=== PATIENT | female | born 1945 | race Two or more races ===

== ENCOUNTER 2023-03-08 09:19 | Outpatient (AMB) | payer OTHER, SELFPAY ==
--- NOTE | 2023-03-08 09:42 | HO.NEPHOV_ITS ---
HPI HPI Comments History of Present Illness Details I had the privilege of seeing Deonna accompanied by her daughter in follow-up for chronic kidney disease and hypertension. She had CVA in the past without residual left side weakness. Her blood pressure control has been fair at home. She is compliant with her medications. She is not very rigid with low-sodium diet. She denies any headache, visual disturbances, new weakness, chest pain, shortness of breath, proximal nocturnal dyspnea, orthopnea, pedal edema or urinary symptoms. She denies taking nonsteroidal anti-inflammatory medications. Her blood sugar control has been fair. Her blood pressure control has been at goal. She still is on Plavix. She maintains good hydration. She has not had any recent hospitalizations. There were no new complaints at the time of this office visit. [facility] Medical History (Updated 03/09/23 @ 10:00 by Carlitos Verdugo MD) Hyperlipidemia Renal cell cancer Stroke Chronic kidney disease Essential (primary) hypertension Surgical History (Updated 03/08/23 @ 09:52 by Caroline Rosado MA) History of cholecystectomy History of nephrectomy History of kidney surgery History of knee surgery History of cataract surgery Family History Daughter Hypertension Son Hypertension Social History (Updated 03/08/23 @ 09:46 by Caroline Rosado MA) Alcohol intake: never Patient Tobacco Use Status: Never used Tobacco Vital Signs 03/08/23 09:43 Height 5 ft 1 in Weight 125 lb BMI 23.6 BP 140/70 H Blood Pressure Location Lt brachial Position Sitting Pulse 90 Pulse Source Pulse Oximeter Physical Exam Vital Signs: Last Vital Signs Pulse 90 03/08/23 09:43 BP 140/70 H 03/08/23 09:43 BMI result Body Mass Index 23.6 Const General: comfortable and no acute distress Orientation/consciousness: patient oriented x3 HEENT Head: Yes normocephalic Mouth: Normal oral and palatal mucosa present Eyes EOM: EOMs intact bilaterally Neck Neck: Yes supple Resp Auscultation: clear to auscultation bilaterally Cardio Jugular venous distension: no JVD Rate: regular rate GI Palpation (GI): Soft to palpation Auscultation: normal bowel sounds General: Yes no CVA tenderness Back/Spine/Pelvis Back: no CVA tenderness Skin General skin exam: no rashes or lesions noted Neuro General: patient oriented x3 and moves all extremities Extrem General: Yes no pedal edema Assessment & Plan Assessment & Plan (1) Hypertension: Code(s): I10 - Essential (primary) hypertension Qualifiers: Hypertension type: primary hypertension Qualified Code(s): I10 - Essential (primary) hypertension (2) CKD (chronic kidney disease) stage 3, GFR 30-59 ml/min: Code(s): N18.30 - Chronic kidney disease, stage 3 unspecified (3) CVA, old, hemiparesis: Code(s): I69.359 - Hemiplegia and hemiparesis following cerebral infarction affecting unspecified side Plan Deonna has longstanding chronic kidney disease and hypertension. She has history of CVA with residual hemiparesis. Her blood pressure control is optimal. Her blood sugars are better. Her serum potassium has been normal. She does not have any orthostatic symptoms. I have ordered blood work and urine studies. I plan to start her on Jardiance or Farxiga at the next visit. She should maintain good hydration, increase activity, keep a low-sodium diet and avoid nonsteroidal anti-inflammatory medications. I did not make any changes today. All questions were answered. Time spent retrieving data, documentation and patient encounter 23 minutes. Follow-up given. Orders: Orders Electrolytes 03/08/23 I10 - Essential (primary) hypertension, N18.30 - Chronic kidney disease, stage 3 unspecified Calcium 03/08/23 I10 - Essential (primary) hypertension, N18.30 - Chronic kidney disease, stage 3 unspecified Parathyroid Hormone Intact 03/08/23 I10 - Essential (primary) hypertension, N18.30 - Chronic kidney disease, stage 3 unspecified Phosphorus 03/08/23 I10 - Essential (primary) hypertension, N18.30 - Chronic kidney disease, stage 3 unspecified Protein Creatinine Ratio, Ur 03/08/23 I10 - Essential (primary) hypertension, N18.30 - Chronic kidney disease, stage 3 unspecified Blood Urea Nitrogen 03/08/23 I10 - Essential (primary) hypertension, N18.30 - Chronic kidney disease, stage 3 unspecified Creatinine 03/08/23 I10 - Essential (primary) hypertension, N18.30 - Chronic kidney disease, stage 3 unspecified Complete Blood Count Auto Diff 03/08/23 I10 - Essential (primary) hypertension, N18.30 - Chronic kidney disease, stage 3 unspecified Coding Level of Care Code Est Pt Level 4 (68781) Diagnoses Primary hypertension I10 Hypertension type: primary hypertension CKD (chronic kidney disease) stage 3, GFR 30-59 ml/min N18.30 CVA, old, hemiparesis I69.359 Results Reviewed Nephrology Results: No Data to Display
[2023-03-08 09:43] VITALS: BP 140/70; PULSE 90; BMI 23.6
== END 2023-03-08 10:16 | disposition home or self-care (01) ==
PROVIDERS: Visit Provider Internal Medicine Nephrology
DX: I10 Essential (primary) hypertension (principal); N18.30 Chronic kidney disease, stage 3 unspecified; I69.359 Hemiplegia and hemiparesis following cerebral infarction affecting unspecified side
CPT/HCPCS: 99214

== ENCOUNTER → 2023-03-08 09:19 | Outpatient (BNVA) | payer OTHER, SELFPAY | PROVIDERS: Visit Provider Internal Medicine Nephrology | DX: I12.9 Hypertensive chronic kidney disease with stage 1 through stage 4 chronic kidney disease, or unspecified chronic kidney disease (principal); N18.30 Chronic kidney disease, stage 3 unspecified; I69.359 Hemiplegia and hemiparesis following cerebral infarction affecting unspecified side | CPT/HCPCS: 99212 ==

== ENCOUNTER 2023-05-01 10:09 | Outpatient (REF) | payer OTHER, SELFPAY ==
[2023-05-01 12:26] LABS: MANUAL DIFF FLAG NO
[2023-05-01 12:28] LABS: Basophils Percent Auto 0.5 % (0-2); Eosinophils Absolute Auto 0.2 X10*3/uL (0.0-0.4); Eosinophils Percent Auto 2.3 % (0-4); Hematocrit 40.3 % (37.0-47.0); Hemoglobin 12.8 g/dl (12.0-16.0); Imm Gran Abs Auto 0.03 X10*3/uL (0.00-0.03); Imm Gran Pct Auto 0.4 % (0.0-0.4); Lymphocytes Absolute Auto 1.1 X10*3/uL (1.2-4.9); Lymphocytes Percent Auto 13.9 % (20-40); Mean Corpuscular HGB Conc 31.8 g/dl (31.0-35.0); Mean Corpuscular Hemoglobin 26.4 pg (27.0-33.0); Mean Corpuscular Volume 83.3 fL (80.0-98.0); Mean Platelet Volume 11.2 fL (9.4-12.3); Monocytes Absolute Auto 0.3 X10*3/uL (0.1-1.2); Neutrophils Absolute Auto 6.5 x10*3/uL (2.0-8.3); Neutrophils Percent Auto 78.9 % (45-73); Platelet Count 351 X10*3/uL (160-400); Red Blood Count 4.84 X10*6/uL (4.20-5.50); Red Cell Distribution Width 13.3 % (11.0-16.0); White Blood Count 8.2 X10*3/uL (4.8-10.8)
[2023-05-01 12:42] LABS: Anion Gap 14 (12-20); Blood Urea Nitrogen 37 mg/dL (9-16); Calcium 9.8 mg/dL (8.4-10.2); Carbon Dioxide 28 mmol/L (22-29); Chloride 102 mmol/L (96-108); Estimated Glomerular Filt Rate 26; Phosphorus 3.9 mg/dL (2.7-4.5); Potassium 4.2 mmol/L (3.3-5.1); Sodium 140 mmol/L (135-145)
[2023-05-01 13:05] LABS: Parathyroid Hormone Intact 135.5 pg/mL (8.7-77.1)
== END 2023-05-01 10:10 | disposition home or self-care (01) ==
LOC: HO.HKASLDS 10:09
PROVIDERS: Visit Provider Internal Medicine Nephrology
DX: I12.9 Hypertensive chronic kidney disease with stage 1 through stage 4 chronic kidney disease, or unspecified chronic kidney disease (principal); N18.30 Chronic kidney disease, stage 3 unspecified
CPT/HCPCS: 36415; 80051; 82310; 82565; 83970; 84100; 84520; 85025

== ENCOUNTER 2023-05-10 09:59 | Outpatient (AMB) | payer OTHER, SELFPAY ==
--- NOTE | 2023-05-10 10:05 | HO.NEPHOV ---
HPI HPI Comments History of Present Illness Details I had the privilege of seeing Deonna accompanied by her daughter in follow-up for chronic kidney disease and hypertension. She had CVA in the past without residual left side weakness. Her blood pressure control has been fair at home. She is compliant with her medications. She is not very rigid with low-sodium diet. She denies any headache, visual disturbances, new weakness, chest pain, shortness of breath, proximal nocturnal dyspnea, orthopnea, pedal edema or urinary symptoms. She denies taking nonsteroidal anti-inflammatory medications. Her blood sugar control has been fair. Her blood pressure control has been at goal. She still is on Plavix. She maintains good hydration. She has not had any recent hospitalizations. There were no new complaints at the time of this office visit [facility] Medical History (Updated 05/10/23 @ 10:21 by Carlitos Verdugo MD) Hyperlipidemia Renal cell cancer Stroke Chronic kidney disease Essential (primary) hypertension Surgical History History of cholecystectomy History of nephrectomy History of kidney surgery History of knee surgery History of cataract surgery Family History Daughter Hypertension Son Hypertension Social History Alcohol intake: never Patient Tobacco Use Status: Never used Tobacco Vital Signs 05/10/23 10:08 Height 5 ft 1 in Weight 122 lb 8 oz BMI 23.1 BP 130/80 Blood Pressure Location Lt brachial Position Sitting Pulse 65 Pulse Source Pulse Oximeter Pulse Oximetry (%) 99 Oxygen Delivery Method Room Air Physical Exam Vital Signs: Last Vital Signs Pulse 65 05/10/23 10:08 BP 130/80 05/10/23 10:08 Pulse Ox 99 05/10/23 10:08 Oxygen Delivery Method Room Air 05/10/23 10:08 BMI result Body Mass Index 23.1 Const General: comfortable and no acute distress Orientation/consciousness: patient oriented x3 HEENT Head: Yes normocephalic Mouth: Normal oral and palatal mucosa present Eyes EOM: EOMs intact bilaterally Neck Neck: Yes supple Resp Auscultation: clear to auscultation bilaterally Cardio Jugular venous distension: no JVD Rate: regular rate GI Palpation (GI): Soft to palpation Auscultation: normal bowel sounds General: Yes no CVA tenderness Back/Spine/Pelvis Back: no CVA tenderness Skin General skin exam: no rashes or lesions noted Neuro General: patient oriented x3 and moves all extremities Extrem General: Yes no pedal edema Assessment & Plan Assessment & Plan (1) CKD (chronic kidney disease) stage 3, GFR 30-59 ml/min: Code(s): N18.30 - Chronic kidney disease, stage 3 unspecified Qualifiers: Chronic kidney disease stage 3 subtype: stage 3b (GFR 30-44) Qualified Code(s): N18.32 - Chronic kidney disease, stage 3b (2) Hypertension: Code(s): I10 - Essential (primary) hypertension Qualifiers: Hypertension type: primary hypertension Qualified Code(s): I10 - Essential (primary) hypertension (3) CVA, old, hemiparesis: Code(s): I69.359 - Hemiplegia and hemiparesis following cerebral infarction affecting unspecified side Plan Deonna has longstanding chronic kidney disease and hypertension. She has history of CVA with residual hemiparesis. Her blood pressure control is optimal. Her blood sugars are better. Her serum potassium has been normal. She does not have any orthostatic symptoms. I have ordered blood work and urine studies. I plan to start her on Jardiance or Farxiga at the next visit. She should maintain good hydration, increase activity, keep a low-sodium diet and avoid nonsteroidal anti-inflammatory medications. 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 I did not make any changes today. All questions were answered. Orders: Orders Vitamin D 25-OH Total Today I10 - Essential (primary) hypertension, I69.359 - Hemiplegia and hemiparesis following cerebral infarction affecting unspecified side, N18.30 - Chronic kidney disease, stage 3 unspecified Creatinine Today I10 - Essential (primary) hypertension, I69.359 - Hemiplegia and hemiparesis following cerebral infarction affecting unspecified side, N18.30 - Chronic kidney disease, stage 3 unspecified Blood Urea Nitrogen Today I10 - Essential (primary) hypertension, I69.359 - Hemiplegia and hemiparesis following cerebral infarction affecting unspecified side, N18.30 - Chronic kidney disease, stage 3 unspecified Electrolytes Today I10 - Essential (primary) hypertension, I69.359 - Hemiplegia and hemiparesis following cerebral infarction affecting unspecified side, N18.30 - Chronic kidney disease, stage 3 unspecified Coding Level of Care Code Est Pt Level 4 (75868) Diagnoses Stage 3b chronic kidney disease N18.32 Chronic kidney disease stage 3 subtype: stage 3b (GFR 30-44) Primary hypertension I10 Hypertension type: primary hypertension CVA, old, hemiparesis I69.359 Results Reviewed Nephrology Results: Hgb 12.8 g/dl (12.0-16.0) 05/01/23 WBC 8.2 X10*3/uL (4.8-10.8) 05/01/23 Plt Count 351 X10*3/uL (160-400) 05/01/23 Sodium 140 mmol/L (135-145) 05/01/23 Potassium 4.2 mmol/L (3.3-5.1) 05/01/23 Chloride 102 mmol/L (96-108) 05/01/23 Carbon Dioxide 28 mmol/L (22-29) 05/01/23 BUN 37 mg/dL (9-16) H 05/01/23 Creatinine 1.87 mg/dL (0.5-1.4) H 05/01/23 Calcium 9.8 mg/dL (8.4-10.2) 05/01/23 Phosphorus 3.9 mg/dL (2.7-4.5) 05/01/23 PTH Intact 135.5 pg/mL (8.7-77.1) H 05/01/23
[2023-05-10 10:08] VITALS: BP 130/80; PULSE 65; O2SAT 99; BMI 23.1
== END 2023-05-10 10:30 | disposition home or self-care (01) ==
PROVIDERS: Visit Provider Internal Medicine Nephrology
DX: N18.32 Chronic kidney disease, stage 3b (principal); I10 Essential (primary) hypertension; I69.359 Hemiplegia and hemiparesis following cerebral infarction affecting unspecified side
CPT/HCPCS: 99214

== ENCOUNTER → 2023-05-10 09:59 | Outpatient (BNVA) | payer OTHER, SELFPAY | PROVIDERS: Visit Provider Internal Medicine Nephrology | DX: I12.9 Hypertensive chronic kidney disease with stage 1 through stage 4 chronic kidney disease, or unspecified chronic kidney disease (principal); N18.32 Chronic kidney disease, stage 3b; I69.359 Hemiplegia and hemiparesis following cerebral infarction affecting unspecified side | CPT/HCPCS: 99212 ==

== ENCOUNTER 2023-08-07 10:41 | Outpatient (AMB) | payer OTHER, SELFPAY ==
--- NOTE | 2023-08-07 10:47 | HO.NEPHOV ---
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 She recently had perforated viscus with pneumo peritoneum. She had surgery. During her hospitalization she had ALFONZO with labile BP . She is constipated now. She had CVA in the past without residual left side weakness. She denies any headache, visual disturbances, new weakness, chest pain, shortness of breath, proximal nocturnal dyspnea, orthopnea, pedal edema or urinary symptoms. She denies taking nonsteroidal anti-inflammatory medications. Her blood sugar control has been good. Her blood pressure control has been at goal. She still is on Plavix. She maintains good hydration. [facility] Medical History (Updated 08/07/23 @ 11:06 by Carlitos Verdugo MD) Hyperlipidemia Renal cell cancer Stroke Chronic kidney disease Essential (primary) hypertension Surgical History History of cholecystectomy History of nephrectomy History of kidney surgery History of knee surgery History of cataract surgery Family History Daughter Hypertension Son Hypertension Social History Alcohol intake: never Patient Tobacco Use Status: Never used Tobacco Physical Exam Vital Signs: Last Vital Signs Pulse 80 08/07/23 10:50 BP 120/50 L 08/07/23 10:50 Pulse Ox 98 08/07/23 10:50 Oxygen Delivery Method Room Air 08/07/23 10:50 Const General: comfortable and no acute distress Orientation/consciousness: patient oriented x3 HEENT Head: Yes normocephalic Mouth: Normal oral and palatal mucosa present Eyes EOM: EOMs intact bilaterally Neck Neck: Yes supple Resp Auscultation: clear to auscultation bilaterally Cardio Jugular venous distension: no JVD Rate: regular rate GI Palpation (GI): Soft to palpation Auscultation: normal bowel sounds General: Yes no CVA tenderness Back/Spine/Pelvis Back: no CVA tenderness Skin General skin exam: no rashes or lesions noted Neuro General: patient oriented x3 and moves all extremities Extrem General: Yes no pedal edema Results Reviewed Nephrology Results: Hgb 12.8 g/dl (12.0-16.0) 05/01/23 WBC 8.2 X10*3/uL (4.8-10.8) 05/01/23 Plt Count 351 X10*3/uL (160-400) 05/01/23 Sodium 140 mmol/L (135-145) 05/01/23 Potassium 4.2 mmol/L (3.3-5.1) 05/01/23 Chloride 102 mmol/L (96-108) 05/01/23 Carbon Dioxide 28 mmol/L (22-29) 05/01/23 BUN 37 mg/dL (9-16) H 05/01/23 Creatinine 1.87 mg/dL (0.5-1.4) H 05/01/23 Calcium 9.8 mg/dL (8.4-10.2) 05/01/23 Phosphorus 3.9 mg/dL (2.7-4.5) 05/01/23 PTH Intact 135.5 pg/mL (8.7-77.1) H 05/01/23 Assessment & Plan Assessment & Plan (1) ALFONZO (acute kidney injury): Code(s): N17.9 - Acute kidney failure, unspecified Category: Medical (2) Hypertension: Code(s): I10 - Essential (primary) hypertension Category: Medical Qualifiers: Hypertension type: primary hypertension Qualified Code(s): I10 - Essential (primary) hypertension (3) CKD (chronic kidney disease) stage 3, GFR 30-59 ml/min: Code(s): N18.30 - Chronic kidney disease, stage 3 unspecified Category: Medical Qualifiers: Chronic kidney disease stage 3 subtype: stage 3b (GFR 30-44) Qualified Code(s): N18.32 - Chronic kidney disease, stage 3b (4) CVA, old, hemiparesis: Code(s): I69.359 - Hemiplegia and hemiparesis following cerebral infarction affecting unspecified side Category: Medical Plan Deonna has longstanding chronic kidney disease and hypertension. She recently had ALFONZO due to tubular injury. She has history of CVA with residual hemiparesis. Her blood pressure control is optimal. Her blood sugars are better. Her serum potassium has been normal. She does not have any orthostatic symptoms. I have ordered blood work and urine studies. I plan to start her on Jardiance or Farxiga with time. She should maintain good hydration, increase activity, keep a low-sodium diet and avoid nonsteroidal anti-inflammatory medications. 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 I did not make any changes today. All questions were answered. Orders: Orders Creatinine Today I10 - Essential (primary) hypertension, I69.359 - Hemiplegia and hemiparesis following cerebral infarction affecting unspecified side, N17.9 - Acute kidney failure, unspecified, N18.32 - Chronic kidney disease, stage 3b Blood Urea Nitrogen Today I10 - Essential (primary) hypertension, I69.359 - Hemiplegia and hemiparesis following cerebral infarction affecting unspecified side, N17.9 - Acute kidney failure, unspecified, N18.32 - Chronic kidney disease, stage 3b Electrolytes Today I10 - Essential (primary) hypertension, I69.359 - Hemiplegia and hemiparesis following cerebral infarction affecting unspecified side, N17.9 - Acute kidney failure, unspecified, N18.32 - Chronic kidney disease, stage 3b Coding Level of Care Code Est Pt Level 4 (65700) Diagnoses ALFONZO (acute kidney injury) N17.9 Primary hypertension I10 Hypertension type: primary hypertension Stage 3b chronic kidney disease N18.32 Chronic kidney disease stage 3 subtype: stage 3b (GFR 30-44) CVA, old, hemiparesis I69.359
[2023-08-07 10:50] VITALS: BP 120/50; PULSE 80; O2SAT 98
== END 2023-08-07 11:12 | disposition home or self-care (01) ==
PROVIDERS: Visit Provider Internal Medicine Nephrology
DX: N17.9 Acute kidney failure, unspecified (principal); I10 Essential (primary) hypertension; N18.32 Chronic kidney disease, stage 3b; I69.359 Hemiplegia and hemiparesis following cerebral infarction affecting unspecified side
CPT/HCPCS: 99214

== ENCOUNTER → 2023-08-07 10:41 | Outpatient (BNVA) | payer OTHER, SELFPAY | PROVIDERS: Visit Provider Internal Medicine Nephrology | DX: N17.9 Acute kidney failure, unspecified (principal); I12.9 Hypertensive chronic kidney disease with stage 1 through stage 4 chronic kidney disease, or unspecified chronic kidney disease; N18.32 Chronic kidney disease, stage 3b; I69.359 Hemiplegia and hemiparesis following cerebral infarction affecting unspecified side | CPT/HCPCS: 99212 ==

== ENCOUNTER 2023-09-05 11:27 | Outpatient (REF) | payer OTHER, SELFPAY ==
[2023-09-05 18:58] LABS: Anion Gap 18 (12-20); Blood Urea Nitrogen 45 mg/dL (9-16); Carbon Dioxide 21 mmol/L (22-29); Chloride 109 mmol/L (96-108); Estimated Glomerular Filt Rate 29; Potassium 4.2 mmol/L (3.3-5.1); Sodium 144 mmol/L (135-145)
== END 2023-09-05 11:28 | disposition home or self-care (01) ==
LOC: HO.HKASLDS 11:27
PROVIDERS: Visit Provider Internal Medicine Nephrology
DX: I12.9 Hypertensive chronic kidney disease with stage 1 through stage 4 chronic kidney disease, or unspecified chronic kidney disease (principal); N17.9 Acute kidney failure, unspecified; N18.32 Chronic kidney disease, stage 3b; I69.359 Hemiplegia and hemiparesis following cerebral infarction affecting unspecified side
CPT/HCPCS: 36415; 80051; 82565; 84520

== ENCOUNTER 2023-09-06 11:36 | Outpatient (AMB) | payer OTHER, SELFPAY ==
--- NOTE | 2023-09-06 11:55 | HO.NEPHOV_ITS ---
Vital Signs 09/06/23 11:58 Height 5 ft 1 in Weight 114 lb 8 oz BMI 21.6 BP 140/70 H Blood Pressure Location Rt brachial Position Sitting Pulse 72 Pulse Source Pulse Oximeter Pulse Oximetry (%) 99 Oxygen Delivery Method Room Air Intake Visit Reasons: 4 mon follow up/ Conf w/daughter Television Mechanic Required: No Accompanied by: Daughter Allergies Penicillins Allergy (Verified 09/06/23 12:01) Unknown HPI Comments Details: I had the privilege of seeing Deonna accompanied by her daughter in follow-up for chronic kidney disease and hypertension. She recently had perforated viscus with pneumo peritoneum as well as another hospitalization with ALFONZO. he had CVA in the past without residual left side weakness. She denies any headache, visual disturbances, new weakness, chest pain, shortness of breath, proximal nocturnal dyspnea, orthopnea, pedal edema or urinary symptoms. She denies taking nonsteroidal anti-inflammatory medications. Her blood sugar control has been good. Her blood pressure control has been at goal. She still is on Plavix. She maintains good hydration. [facility] Medical History (Updated 08/07/23 @ 11:06 by Carlitos Verdugo MD) Hyperlipidemia Renal cell cancer Stroke Chronic kidney disease Essential (primary) hypertension Surgical History History of cholecystectomy History of nephrectomy History of kidney surgery History of knee surgery History of cataract surgery Family History Daughter Hypertension Son Hypertension Social History Alcohol intake: never Patient Tobacco Use Status: Never used Tobacco Physical Exam Vital Signs: Last Vital Signs Pulse 72 09/06/23 11:58 BP 170/70 H 09/06/23 11:58 Pulse Ox 99 09/06/23 11:58 Oxygen Delivery Method Room Air 09/06/23 11:58 BMI result Body Mass Index 21.6 Const General: comfortable and no acute distress Orientation/consciousness: patient oriented x3 HEENT Head: Yes normocephalic Mouth: Normal oral and palatal mucosa present Eyes EOM: EOMs intact bilaterally Neck Neck: Yes supple Resp Auscultation: clear to auscultation bilaterally Cardio Jugular venous distension: no JVD Rate: regular rate GI Palpation (GI): Soft to palpation Auscultation: normal bowel sounds General: Yes no CVA tenderness Back/Spine/Pelvis Back: no CVA tenderness Skin General skin exam: no rashes or lesions noted Neuro General: patient oriented x3 and moves all extremities Extrem General: Yes no pedal edema Results Reviewed Nephrology Results: Sodium 144 mmol/L (135-145) 09/05/23 Potassium 4.2 mmol/L (3.3-5.1) 09/05/23 Chloride 109 mmol/L (96-108) H 09/05/23 Carbon Dioxide 21 mmol/L (22-29) L 09/05/23 BUN 45 mg/dL (9-16) H 09/05/23 Creatinine 1.69 mg/dL (0.5-1.4) H 09/05/23 Calcium 9.8 mg/dL (8.4-10.2) 05/01/23 Phosphorus 3.9 mg/dL (2.7-4.5) 05/01/23 PTH Intact 135.5 pg/mL (8.7-77.1) H 05/01/23 Assessment & Plan Assessment & Plan (1) CKD (chronic kidney disease) stage 3, GFR 30-59 ml/min: Code(s): N18.30 - Chronic kidney disease, stage 3 unspecified Category: Medical Qualifiers: Chronic kidney disease stage 3 subtype: stage 3b (GFR 30-44) Qualified Code(s): N18.32 - Chronic kidney disease, stage 3b (2) Hypertension: Code(s): I10 - Essential (primary) hypertension Category: Medical Qualifiers: Hypertension type: primary hypertension Qualified Code(s): I10 - Essential (primary) hypertension (3) CVA, old, hemiparesis: Code(s): I69.359 - Hemiplegia and hemiparesis following cerebral infarction affecting unspecified side Category: Medical (4) ALFONZO (acute kidney injury): Code(s): N17.9 - Acute kidney failure, unspecified Category: Medical Plan Deonna has longstanding chronic kidney disease and hypertension. She recently had ALFONZO due to tubular injury which has resolved. She has history of CVA with residual hemiparesis. Her blood pressure control is optimal. Her blood sugars are better. Her serum potassium has been normal. She does not have any orthostatic symptoms. I have ordered blood work and urine studies. I plan to start her on Jardiance or Farxiga with time. She should maintain good hydration, increase activity, keep a low-sodium diet and avoid nonsteroidal anti-inflammatory medications. 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 I did not make any changes today. All questions were answered. Orders: Orders Creatinine Today I10 - Essential (primary) hypertension, I69.359 - Hemiplegia and hemiparesis following cerebral infarction affecting unspecified side, N17.9 - Acute kidney failure, unspecified, N18.32 - Chronic kidney disease, stage 3b Blood Urea Nitrogen Today I10 - Essential (primary) hypertension, I69.359 - Hemiplegia and hemiparesis following cerebral infarction affecting unspecified side, N17.9 - Acute kidney failure, unspecified, N18.32 - Chronic kidney disease, stage 3b Electrolytes Today I10 - Essential (primary) hypertension, I69.359 - Hemiplegia and hemiparesis following cerebral infarction affecting unspecified side, N17.9 - Acute kidney failure, unspecified, N18.32 - Chronic kidney disease, stage 3b Coding Level of Care Code Est Pt Level 4 (99417) Diagnoses Stage 3b chronic kidney disease N18.32 Chronic kidney disease stage 3 subtype: stage 3b (GFR 30-44) Primary hypertension I10 Hypertension type: primary hypertension CVA, old, hemiparesis I69.359 ALFONZO (acute kidney injury) N17.9
[2023-09-06 11:58] VITALS: BP 140/70; PULSE 72; O2SAT 99; BMI 21.6
== END 2023-09-06 12:22 | disposition home or self-care (01) ==
PROVIDERS: Visit Provider Internal Medicine Nephrology
DX: N18.32 Chronic kidney disease, stage 3b (principal); I10 Essential (primary) hypertension; I69.359 Hemiplegia and hemiparesis following cerebral infarction affecting unspecified side; N17.9 Acute kidney failure, unspecified
CPT/HCPCS: 99214

== ENCOUNTER → 2023-09-06 11:36 | Outpatient (BNVA) | payer OTHER, SELFPAY | PROVIDERS: Visit Provider Internal Medicine Nephrology | DX: I12.9 Hypertensive chronic kidney disease with stage 1 through stage 4 chronic kidney disease, or unspecified chronic kidney disease (principal); N18.32 Chronic kidney disease, stage 3b; N17.9 Acute kidney failure, unspecified; I69.359 Hemiplegia and hemiparesis following cerebral infarction affecting unspecified side | CPT/HCPCS: 99212 ==

== ENCOUNTER 2023-10-16 14:49 | Outpatient (AMB) | payer OTHER, SELFPAY ==
[2023-10-16 15:09] VITALS: BP 124/52; PULSE 76; O2SAT 98; BMI 22.7
--- NOTE | 2023-10-16 15:09 | HO.NEPHOV ---
Vital Signs 10/16/23 15:09 Height 5 ft 1 in Weight 120 lb BMI 22.7 BP 124/52 L Blood Pressure Location Lt brachial Position Sitting Pulse 76 Pulse Source Pulse Oximeter Pulse Oximetry (%) 98 Oxygen Delivery Method Room Air Intake Visit Reasons: 2 mon follow up/ Conf w/daughter Jack Spinner Required: No Accompanied by: Daughter Allergies Penicillins Allergy (Verified 10/16/23 15:11) Unknown HPI Comments Details: I had the privilege of seeing Deonna accompanied by her daughter in follow-up for chronic kidney disease and hypertension. She recently had perforated viscus with pneumo peritoneum as well as another hospitalization with ALFONZO. he had CVA in the past without residual left side weakness. She denies any headache, visual disturbances, new weakness, chest pain, shortness of breath, proximal nocturnal dyspnea, orthopnea, pedal edema or urinary symptoms. She denies taking nonsteroidal anti-inflammatory medications. Her blood sugar control has been good. Her blood pressure control has been at goal. She still is on Plavix. She maintains good hydration. [facility] Medical History (Updated 08/07/23 @ 11:06 by Carlitos Verdugo MD) Hyperlipidemia Renal cell cancer Stroke Chronic kidney disease Essential (primary) hypertension Surgical History History of cholecystectomy History of nephrectomy History of kidney surgery History of knee surgery History of cataract surgery Family History Daughter Hypertension Son Hypertension Social History Alcohol intake: never Patient Tobacco Use Status: Never used Tobacco Physical Exam Vital Signs: Last Vital Signs Pulse 76 10/16/23 15:09 BP 124/52 L 10/16/23 15:09 Pulse Ox 98 10/16/23 15:09 Oxygen Delivery Method Room Air 10/16/23 15:09 BMI result Body Mass Index 22.7 Const General: comfortable and no acute distress Orientation/consciousness: patient oriented x3 HEENT Head: Yes normocephalic Mouth: Normal oral and palatal mucosa present Eyes EOM: EOMs intact bilaterally Neck Neck: Yes supple Resp Auscultation: clear to auscultation bilaterally Cardio Jugular venous distension: no JVD Rate: regular rate GI Palpation (GI): Soft to palpation Auscultation: normal bowel sounds General: Yes no CVA tenderness Back/Spine/Pelvis Back: no CVA tenderness Skin General skin exam: no rashes or lesions noted Neuro General: patient oriented x3 and moves all extremities Extrem General: Yes no pedal edema Results Reviewed Nephrology Results: Hgb 12.8 g/dl (12.0-16.0) 05/01/23 WBC 8.2 X10*3/uL (4.8-10.8) 05/01/23 Plt Count 351 X10*3/uL (160-400) 05/01/23 Sodium 144 mmol/L (135-145) 09/05/23 Potassium 4.2 mmol/L (3.3-5.1) 09/05/23 Chloride 109 mmol/L (96-108) H 09/05/23 Carbon Dioxide 21 mmol/L (22-29) L 09/05/23 BUN 45 mg/dL (9-16) H 09/05/23 Creatinine 1.69 mg/dL (0.5-1.4) H 09/05/23 Calcium 9.8 mg/dL (8.4-10.2) 05/01/23 Phosphorus 3.9 mg/dL (2.7-4.5) 05/01/23 PTH Intact 135.5 pg/mL (8.7-77.1) H 05/01/23 Assessment & Plan Assessment & Plan (1) CKD (chronic kidney disease) stage 3, GFR 30-59 ml/min: Code(s): N18.30 - Chronic kidney disease, stage 3 unspecified Category: Medical Qualifiers: Chronic kidney disease stage 3 subtype: stage 3b (GFR 30-44) Qualified Code(s): N18.32 - Chronic kidney disease, stage 3b (2) Hypertension: Code(s): I10 - Essential (primary) hypertension Category: Medical Qualifiers: Hypertension type: primary hypertension Qualified Code(s): I10 - Essential (primary) hypertension Plan Deonna has longstanding chronic kidney disease and hypertension. She recently had ALFONZO due to tubular injury which has resolved. She has history of CVA with residual hemiparesis. Her blood pressure control is optimal. Her blood sugars are better. Her serum potassium has been normal. She does not have any orthostatic symptoms. I plan to start her on Jardiance or Farxiga with time. She should maintain good hydration, increase activity, keep a low-sodium diet and avoid nonsteroidal anti-inflammatory medications. 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 I did not make any changes today. All questions were answered. Orders: Orders Blood Urea Nitrogen Today I10 - Essential (primary) hypertension, N18.32 - Chronic kidney disease, stage 3b Electrolytes Today I10 - Essential (primary) hypertension, N18.32 - Chronic kidney disease, stage 3b Complete Blood Count Auto Diff Today I10 - Essential (primary) hypertension, N18.32 - Chronic kidney disease, stage 3b Creatinine Today I10 - Essential (primary) hypertension, N18.32 - Chronic kidney disease, stage 3b Medications: Changed From nifedipine ER PO To nifedipine ER 120 mg (2 x 60 mg) PO DAILY 30 days 60 tabs 5RF Coding Level of Care Code Est Pt Level 4 (47840) Diagnoses Stage 3b chronic kidney disease N18.32 Chronic kidney disease stage 3 subtype: stage 3b (GFR 30-44) Primary hypertension I10 Hypertension type: primary hypertension
== END 2023-10-16 15:28 | disposition home or self-care (01) ==
PROVIDERS: PCP Internal Medicine; Visit Provider Internal Medicine Nephrology
DX: N18.32 Chronic kidney disease, stage 3b (principal); I10 Essential (primary) hypertension
CPT/HCPCS: 99214

== ENCOUNTER → 2023-10-16 14:49 | Outpatient (BNVA) | payer OTHER, SELFPAY | PROVIDERS: PCP Internal Medicine; Visit Provider Internal Medicine Nephrology | DX: I12.9 Hypertensive chronic kidney disease with stage 1 through stage 4 chronic kidney disease, or unspecified chronic kidney disease (principal); N18.32 Chronic kidney disease, stage 3b | CPT/HCPCS: 99212 ==

== ENCOUNTER 2024-01-31 13:32 | Outpatient (AMB) | payer OTHER, SELFPAY ==
--- NOTE | 2024-01-31 13:49 | HO.NEPHOV ---
Vital Signs 01/31/24 13:50 Height 5 ft 1 in Weight 123 lb BMI 23.2 BP 130/48 L Blood Pressure Location Rt brachial Position Sitting Pulse 69 Pulse Source Pulse Oximeter Pulse Oximetry (%) 98 Oxygen Delivery Method Room Air Intake Visit Reasons: Oct follow up-[facility] Broadband Installer Required: No Accompanied by: Daughter Allergies Penicillins Allergy (Verified 01/31/24 13:50) Unknown HPI Comments Details: Deonna was accompanied by her daughter in follow-up for chronic kidney disease and hypertension.She had CVA in the past without residual left side weakness. She denies any headache, visual disturbances, new weakness, chest pain, shortness of breath, proximal nocturnal dyspnea, orthopnea, pedal edema or urinary symptoms. She denies taking nonsteroidal anti-inflammatory medications. Her blood sugar control has been good. Her blood pressure control has been at goal. She still is on Plavix. She maintains good hydration [facility] Medical History (Updated 08/07/23 @ 11:06 by Carlitos Verdugo MD) Hyperlipidemia Renal cell cancer Stroke Chronic kidney disease Essential (primary) hypertension Surgical History History of cholecystectomy History of nephrectomy History of kidney surgery History of knee surgery History of cataract surgery Family History Daughter Hypertension Son Hypertension Social History Alcohol intake: never Patient Tobacco Use Status: Never used Tobacco Review of Systems Const All systems reviewed & are unremarkable except as noted in HPI and below Physical Exam Vital Signs: Last Vital Signs Pulse 69 01/31/24 13:50 BP 130/48 L 01/31/24 13:50 Pulse Ox 98 01/31/24 13:50 Oxygen Delivery Method Room Air 01/31/24 13:50 BMI result Body Mass Index 23.2 Const General: comfortable and no acute distress Orientation/consciousness: patient oriented x3 HEENT Head: Yes normocephalic Mouth: Normal oral and palatal mucosa present Eyes EOM: EOMs intact bilaterally Neck Neck: Yes supple Resp Auscultation: clear to auscultation bilaterally Cardio Jugular venous distension: no JVD Rate: regular rate GI Palpation (GI): Soft to palpation Auscultation: normal bowel sounds General: Yes no CVA tenderness Back/Spine/Pelvis Back: no CVA tenderness Skin General skin exam: no rashes or lesions noted Neuro General: patient oriented x3 and moves all extremities Extrem General: Yes no pedal edema Assessment & Plan Assessment & Plan (1) CKD (chronic kidney disease) stage 3, GFR 30-59 ml/min: Code(s): N18.30 - Chronic kidney disease, stage 3 unspecified Category: Medical Qualifiers: Chronic kidney disease stage 3 subtype: stage 3b (GFR 30-44) Qualified Code(s): N18.32 - Chronic kidney disease, stage 3b (2) Hypertension: Code(s): I10 - Essential (primary) hypertension Category: Medical Qualifiers: Hypertension type: primary hypertension Qualified Code(s): I10 - Essential (primary) hypertension (3) CVA, old, hemiparesis: Code(s): I69.359 - Hemiplegia and hemiparesis following cerebral infarction affecting unspecified side Category: Medical Plan Deonna has longstanding chronic kidney disease and hypertension. She has history of CVA with residual hemiparesis. Her blood pressure control is optimal. Her blood sugars are better. Her serum potassium has been normal. She does not have any orthostatic symptoms. I plan to start her on Jardiance or Farxiga with time. She should maintain good hydration, increase activity, keep a low-sodium diet and avoid nonsteroidal anti-inflammatory medications. 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 I did not make any changes today. All questions were answered Medications: New carvedilol must administer with a meal/food 6.25 mg PO BID 60 tabs 4RF Coding Level of Care Code Est Pt Level 4 (79309) Diagnoses Stage 3b chronic kidney disease N18.32 Chronic kidney disease stage 3 subtype: stage 3b (GFR 30-44) Primary hypertension I10 Hypertension type: primary hypertension CVA, old, hemiparesis I69.359
[2024-01-31 13:50] VITALS: BP 130/48; PULSE 69; O2SAT 98; BMI 23.2
== END 2024-01-31 14:18 | disposition home or self-care (01) ==
LOC: HO.HKAS 13:33
PROVIDERS: PCP Internal Medicine; Visit Provider Internal Medicine Nephrology
DX: N18.32 Chronic kidney disease, stage 3b (principal); I10 Essential (primary) hypertension; I69.359 Hemiplegia and hemiparesis following cerebral infarction affecting unspecified side
CPT/HCPCS: 99214

== ENCOUNTER → 2024-01-31 13:32 | Outpatient (BNVA) | payer OTHER, SELFPAY | PROVIDERS: PCP Internal Medicine; Visit Provider Internal Medicine Nephrology | DX: I12.9 Hypertensive chronic kidney disease with stage 1 through stage 4 chronic kidney disease, or unspecified chronic kidney disease (principal); N18.32 Chronic kidney disease, stage 3b; I69.359 Hemiplegia and hemiparesis following cerebral infarction affecting unspecified side | CPT/HCPCS: 99212 ==

== ENCOUNTER 2024-02-19 10:05 | Outpatient (AMB) | payer OTHER, SELFPAY ==
--- NOTE | 2024-02-19 10:10 | HO.NEPHOV ---
Vital Signs 02/19/24 10:12 Height 5 ft 1 in Weight 126 lb 6 oz BMI 23.9 BP 114/60 Blood Pressure Location Lt brachial Position Sitting Pulse 70 Pulse Source Pulse Oximeter Pulse Oximetry (%) 99 Oxygen Delivery Method Room Air Intake Visit Reasons: 4 mon follow up-[facility] Media Services Coordinator Required: No Accompanied by: Daughter Allergies Penicillins Allergy (Verified 02/19/24 10:11) Unknown HPI Comments Details: Deonna was accompanied by her daughter in follow-up for chronic kidney disease and hypertension.She had CVA in the past without residual left side weakness. She denies any headache, visual disturbances, new weakness, chest pain, shortness of breath, proximal nocturnal dyspnea, orthopnea, pedal edema or urinary symptoms. She denies taking nonsteroidal anti-inflammatory medications. Her blood sugar control has been good. Her blood pressure control has been at goal. She still is on Plavix. She maintains good hydration [facility] Medical History (Updated 02/19/24 @ 10:17 by Carlitos Verdugo MD) Hyperlipidemia Renal cell cancer Stroke Chronic kidney disease Essential (primary) hypertension Surgical History History of cholecystectomy History of nephrectomy History of kidney surgery History of knee surgery History of cataract surgery Family History Daughter Hypertension Son Hypertension Social History Alcohol intake: never Patient Tobacco Use Status: Never used Tobacco Review of Systems Const All systems reviewed & are unremarkable except as noted in HPI and below Physical Exam Const General: comfortable and no acute distress Orientation/consciousness: patient oriented x3 HEENT Head: Yes normocephalic Mouth: Normal oral and palatal mucosa present Eyes EOM: EOMs intact bilaterally Neck Neck: Yes supple Resp Auscultation: clear to auscultation bilaterally Cardio Jugular venous distension: no JVD Rate: regular rate GI Palpation (GI): Soft to palpation Auscultation: normal bowel sounds General: Yes no CVA tenderness Back/Spine/Pelvis Back: no CVA tenderness Skin General skin exam: no rashes or lesions noted Neuro General: patient oriented x3 and moves all extremities Extrem General: Yes no pedal edema Assessment & Plan Assessment & Plan (1) CKD (chronic kidney disease) stage 3, GFR 30-59 ml/min: Code(s): N18.30 - Chronic kidney disease, stage 3 unspecified Category: Medical Qualifiers: Chronic kidney disease stage 3 subtype: stage 3b (GFR 30-44) Qualified Code(s): N18.32 - Chronic kidney disease, stage 3b (2) Hypertension: Code(s): I10 - Essential (primary) hypertension Category: Medical Qualifiers: Hypertension type: primary hypertension Qualified Code(s): I10 - Essential (primary) hypertension (3) CVA, old, hemiparesis: Code(s): I69.359 - Hemiplegia and hemiparesis following cerebral infarction affecting unspecified side Category: Medical (4) Diabetic nephropathy associated with type 2 diabetes mellitus: Code(s): E11.21 - Type 2 diabetes mellitus with diabetic nephropathy Category: Medical Plan Deonna has longstanding chronic kidney disease and hypertension. She has history of CVA with residual hemiparesis. Her blood pressure control is optimal. Her blood sugars are better. Her serum potassium has been normal. She does not have any orthostatic symptoms. I started her on Jardiance 10 mg daily. She should maintain good hydration, increase activity, keep a low-sodium diet and avoid nonsteroidal anti-inflammatory medications. 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 I did not make any other changes today. All questions were answered Orders: Orders Electrolytes 6 Weeks E11.21 - Type 2 diabetes mellitus with diabetic nephropathy, I10 - Essential (primary) hypertension, I69.359 - Hemiplegia and hemiparesis following cerebral infarction affecting unspecified side, N18.32 - Chronic kidney disease, stage 3b Blood Urea Nitrogen 6 Weeks E11.21 - Type 2 diabetes mellitus with diabetic nephropathy, I10 - Essential (primary) hypertension, I69.359 - Hemiplegia and hemiparesis following cerebral infarction affecting unspecified side, N18.32 - Chronic kidney disease, stage 3b Creatinine 6 Weeks E11.21 - Type 2 diabetes mellitus with diabetic nephropathy, I10 - Essential (primary) hypertension, I69.359 - Hemiplegia and hemiparesis following cerebral infarction affecting unspecified side, N18.32 - Chronic kidney disease, stage 3b Medications: New empagliflozin (Jardiance) 10 mg PO DAILY 30 tabs 4RF Coding Level of Care Code Est Pt Level 4 (46673) Diagnoses Stage 3b chronic kidney disease N18.32 Chronic kidney disease stage 3 subtype: stage 3b (GFR 30-44) Primary hypertension I10 Hypertension type: primary hypertension CVA, old, hemiparesis I69.359 Diabetic nephropathy associated with type 2 diabetes mellitus E11.21
[2024-02-19 10:12] VITALS: BP 114/60; PULSE 70; O2SAT 99; BMI 23.9
== END 2024-02-19 10:33 | disposition home or self-care (01) ==
PROVIDERS: PCP Internal Medicine; Visit Provider Internal Medicine Nephrology
DX: N18.32 Chronic kidney disease, stage 3b (principal); I10 Essential (primary) hypertension; I69.359 Hemiplegia and hemiparesis following cerebral infarction affecting unspecified side; E11.21 Type 2 diabetes mellitus with diabetic nephropathy
CPT/HCPCS: 99214

== ENCOUNTER → 2024-02-19 10:05 | Outpatient (BNVA) | payer OTHER, SELFPAY | PROVIDERS: PCP Internal Medicine; Visit Provider Internal Medicine Nephrology | DX: E11.22 Type 2 diabetes mellitus with diabetic chronic kidney disease (principal); I12.9 Hypertensive chronic kidney disease with stage 1 through stage 4 chronic kidney disease, or unspecified chronic kidney disease; N18.32 Chronic kidney disease, stage 3b; E11.21 Type 2 diabetes mellitus with diabetic nephropathy; I69.359 Hemiplegia and hemiparesis following cerebral infarction affecting unspecified side | CPT/HCPCS: 99212 ==

== ENCOUNTER 2024-05-07 09:43 | Outpatient (REF) | payer OTHER, SELFPAY ==
--- OUTSIDE RECORDS SUMMARY | 2024-05-07 10:18 | XMS_ITS | Encounter Summary ---
Author Organization [facility] Address [address] [place] [address] Care Team Providers Care Store Protection Specialist Name Role Phone Tegan Driscoll MD Primary Care Prov ider Reason for Visit * Reason Onset Date Comments Rash 04/21/2024 Encounter Details Date Type Department Care Team (Late st Contact Info) Description 04/21/2024 Telephone Adult Medicine [address] [phone] Tegan Driscoll MD [address] [place] [id number] Rash Social History Tobacco Use Types Packs/Day Years Used Date Smoking Tobacco: Never Smokeless Tobacco: Never Alcohol Use Standard Drinks/Week Comments No 0 (1 standard drink = 0.6 oz pur e alcohol) Sex and Gender Information Value Date Recorded Sex Assigned at Female 03/25/2024 10:50 AM EST Gender Identity Female 03/25/2024 10:50 AM EST Sexual Orientation Straight 03/25/2024 10 :50 AM EST Job Start Date Occupation Industry Not on file Not on file Not on file documented as of this encounter Progress Notes * Siva Christiansen RN - 04/21/2024 2:23 PM EST Called and spoke with pts daughter pt c/o red itchy rash on right upper leg x two weeks no swellingno sob no tightness in throat. Denies any new products foods or meds. Appt for tomorrow for evaluation. * Toyin Christy - 04/21/2024 1:41 PM EST Patient call requires triage: Symptoms patient is presenting: PT daughter is calling in regards to rash PT has on her right leg that is very itchy and irritated How long has patient had these symptoms?: 2 weeks For ALL patients calling to schedule any appointment (routine, sick visit, follow up, consult, etc.) in the outpatient setting please ask the following questions: Do you have fever of higher than 101, sore throat with difficulty swallowing or severe shortness ofbreath? no If YES to any of these above symptoms, send a message to triage and do not book. Red dot. If no, an audio or video visit should be booked. Have you had close contact with someone with Coronavirus in the last 14 days? no Have you traveled abroad? no Have you traveled recently to another state outside of [place], [place], [place], [place], [place], [place], [place]? no o If yes, did you quarantine for 14 days or have a negative covid test? no If yes to any of the above, patient is not to be scheduled in office until after 14 day quarantine or negative covid test. If pain or injury related was it due to an accident at work or from a motor vehicle accident? If yes, date of accident/Injury: No If yes, gather 3rd green party insurance information Third Libertarian Information: not applicable PCP: Tegan Ames MD Payor: [employer] MEDICARE / Plan: [employer] ONE CARE / Product Type: *No Product type* / documented in this encounter Plan of Treatment Upcoming Encounters Date Type Department Care Team (Late st Contact Info) Description 06/06/2024 10:30 AM EST Consult Vascular Surgery - [place] [address] [place] [id number] Portia Jamison PA [address] [place] [address] 06/30/2024 8:30 AM EDT Office Visit Orthopedic Surgery - [place] [address] [phone] Adarsh Escalante, DPM [address] [address] 11/21/2024 2:10 PM EDT Appointment Radiology Department - [address] [phone] documented as of this encounter Visit Diagnoses Not on filedocumented in this encounter Care Teams Store Protection Specialist Relationship Specialty Start Date End Date Tegan Driscoll MD [address] [place] [id number] PCP - General Internal Medicine 11/01/21 documented as of this encounter
--- OUTSIDE RECORDS SUMMARY | 2024-05-07 10:18 | XMS_ITS | Clinical Summary ---
Author Organization [facility] [address] [facility] Address [address] [place] [address] Phone Care Team Providers Care Implant Polisher Name Role Phone Tegan Driscoll MD Primary Care Prov ider Allergies Active Allergy Reactions Criticality Noted Date Comments Chlorthalidone Other 10/30/2019 Low potassium Other reaction(s): OTHER, Other (see comments) Low potassium Low potassium Iodinated Contrast Media Swelling 11/11/2010 Latex 05/03/2021 Loratadine 05/24/2020 Other reaction(s): Other (see comments) Oxycodone 05/03/2021 Penicillins 07/09/2011 Other reaction(s): itching, Other (see comments) patient tolerates piperacillin/tazobactam Medications Medication Sig Dispensed Refills Start Date End Date Status omeprazole (PriLOSEC) [address] capsule Take 1 capsule (20 mg total) by mouth 1 (one) time each day. 08/21/2023 Active rosuvastatin (CRESTOR) 40 mg tablet Take 1 tablet (40 mg total) by mouth 1 (one) time each day. 04/01/2020 Active cholecalciferol (VITAMIN D-3) 25 mcg (1,000 unit) capsule Take 1 capsule (1,000 Units total) by mouth 1 (one) time each day. 07/17/2023 Active amLODIPine (NORVASC) 10 mg tablet Take 1 tablet (10 mg total) by mouth 1 (one) time each day. 09/28/2023 Active FREESTYLE LANCETS MISC USE FOUR TIMES DAILY DIRECTED 01/29/2023 Active clopidogreL (PLAVIX) 75 mg tablet Take 1 tablet (75 mg total) by mouth 1 (one) time each day. 06/11/2015 Active insulin glargine (Lantus Solostar U-100 Insulin) 100 unit/mL (3 mL) injection pen Inject 10 Units as directed at bedtime. 07/10/2022 Active diclofenac (VOLTAREN) 1 % topical gel Apply 1 g topically 3 (three) times a day. 10/16/2023 Active pen needle, diabetic 32 gauge x 5/32 needle USE DIRECTED FOUR TIMES DAILY 10/08/2023 Active HYDROmorphone (DILAUDID) 2 mg tablet 07/30/2023 Active insulin aspart (NovoLOG Flexpen U-100 Insulin) 100 unit/mL (3 mL) injection pen ADMINISTER 4 TO 12 UNITS UNDER THE SKIN THREE TIMES DAILY BEFORE MEALS 12/16/2021 Active calcium carbonate 1,500 mg (600 mg elemental calcium) tablet Take 600 mg by mouth 2 (two) times a day with meals. 07/17/2023 Active glucose blood (FreeStyle Precision Leonardo Strips) test strip USE TO CHECK BLOOD SUGAR 4 TIMES A DAY. 02/12/2023 Active clotrimazole (LOTRIMIN) 1 % cream Apply to skin and toenails daily for 12 weeks 06/21/2022 Active acetaminophen (TYLENOL) 500 mg tablet Take 1 tablet (500 mg total) by mouth every 6 (six) hours if needed. Active alcohol swabs pads, medicated 1 Packet by Subdermal route daily. USE FOUR TIMES DAILY 09/06/2020 Active insulin syringe-needle U-100 0.5 mL 29 gauge x 1/2 syringe Inject 1 Syringe into the skin 4 times daily. 03/13/2013 Active Vitamins B Complex tablet TAKE 1 TABLET BY MOUTH DAILY 90 tablet 04/11/2024 Active dulaglutide (Trulicity) 0.75 mg/0.5 mL pen injector injection Inject 0.5 mL (0.75 mg total) under the skin 1 (one) time per week. 2 mL 2 04/24/2024 Active triamcinolone (KENALOG) 0.1 % cream Apply to affected area 1-2 times daily as needed for 2 weeks 15 g 04/22/2024 5 Active B complex tablet Take 1 tablet by mouth 1 (one) time each day. 10/17/2023 5 Discontinued dulaglutide (Trulicity) 0.75 mg/0.5 mL pen injector injection Inject 0.5 mL (0.75 mg total) under the skin 1 (one) time per week. 10/17/2023 5 Discontinued(Reo rder) Active Problems Problem Noted Date Diagnosed Date Abnormal EKG 10/10/2022 Overview (01/09/2024): Last Assessment & Plan: Has been chronic. Both stress test and echocardiogram were unremarkable. She has felt well without symptoms to suggest angina or heart failure. We will continue primary prevention. Osteoarthritis of spine with radiculopathy, lumb ar region 06/02/2022 Hyperparathyroidism due to renal insufficiency 0 05/03/2021 Vitamin D deficiency 05/03/2021 Murmur, cardiac 01/28/2021 Overview (01/09/2024): Last Assessment & Plan: She has no significant valvular disease. Hypokalemia 01/22/2020 Diabetes mellitus type 2 with peripheral artery disease 08/06/2018 Overview (01/09/2024): [facility] - see testing 07/31/18 - stenoses in both lower extremity arteries; 12/2019 multilevel stenoses Peripheral artery disease 08/06/2018 Overview (01/09/2024): [facility] Last Assessment & Plan: Overall, no obvious claudication symptoms with ambulation. We will continue current regimen. She had fairly significant murmur/Kaylyn in bilateral neck area which could be transmitted from LVOT murmur. We will arrange carotid ultrasound. Abnormal echocardiogram 06/12/2018 ROSEANNA (obstructive sleep apnea) 02/11/2016 Overview (01/09/2024): [facility] ([facility]). 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) 07/21/2015 Cerebrovascular accident (CV A) involving right middle cerebral artery territory 07/20/2015 Tear, knee, medial meniscus 11/10/2014 Papilledema 02/06/2014 Chest pain 09/29/2013 Overview (01/09/2024): Negative Regadenoson stress test [facility]iology 08/2013 Last Assessment & Plan: Patient continues with atypical chest discomfort occurring at rest or exertion lasting 3 to 5 minutes. It is not clearly exertional and does not occur every time that she walks. It is unchanged in the last year. Her EKG is unchanged in the last number of years. We will obtain a pharmacologic nuclear stress test to further evaluate. If this is negative, would recommend PCP evaluation for noncardiac causes of her discomfort. I will let her know the results of testing once it is available. Type 2 diabetes mellitus with renal manifestatio ns 01/27/2013 Overview (01/09/2024): Last Assessment & Plan: Better control of diabetes. Continue current regimen. See diabetes tiler/educator as planned. Return in 3 months with lab tests at least 1 week before next visit. 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 Hyperlipidemia 11/03/2010 Overview (01/09/2024): IMO update Last Assessment & Plan: I highly suspect that she probably not taking rosuvastatin prior to lipid profile. I asked her daughter to give us a call back after reviewing her medication bottles. Encounters Date Type Department Care Team Description 04/22/2024 9:00 AM EST Office Visit Adult Medicine [address] [phone] Jaclny Helms PA Dermatitis (Primary Dx) 04/21/2024 Telephone Adult Medicine [address] [phone] Tegan Driscoll MD Rash 03/31/2024 9:45 AM EST Office Visit Orthopedic Surgery [facility] [address] [facility] [address] [place] [phone] Adarsh Escalante DPM Peripheral venous insufficiency (Primary Dx); Dermatophytosis of nail; Pain in toe of right foot; Pain in toe of left foot; Diabetic mononeuropathy simplex (CMS/HCC); Type II diabetes mellitus with peripheral circulatory disorder (CMS/HCC) 03/31/2024 7:04 AM EST - 03/31/2024 11:59 PM EST Hospital Encounter Radiology Department - [address] [phone] Postoperative incisional hernia Discharge Disposition: Home or Self Care 03/24/2024 2:00 PM EST Office Visit Obstetrics and Gynecology - [address] [phone] Nona Merlos CNM Encounter for annual routine gynecological examination 03/24/2024 10:30 AM EST Office Visit Bariatric Surgery [facility] [address] [facility] [address] [place] [phone] Isaura Khoury MD History of open sigmoidectomy (Primary Dx); Hx of iron deficiency anemia; Periumbilical abdominal pain from Last 3 Months Immunizations Name Administration Dates Next Due Influenza Quadravalent, 0.5m l (Fluad) 65yo and older 01/26/2022 Influenza trivalent, 0.5mL ( Fluzone High-dose) 65yo and older 01/01/2024,02/12/2023,01/28/2021,01/24,12/11/2017,01/16/2017 Influenza trivalent, with pr eservative (Fluzone; Afluria) 6mo and older 01/25/2020,01/15/2019,05/18/2016,12/14,05/25/2014,12/23/2012,05/13/2012 Influenza, Unspecified 01/02/2022 Moderna SARS-CoV-2 COVID-19, mRNA, LNP-S, preservative free 03/21/2021,09/23/2020,08/26/2020 Pneumococcal conjugate 13 va lent (Prevnar 13, PCV13) 2mo and older 01/24/2017,07/10/2015 Pneumococcal polysaccharide 23 valent (Pneumovax 23) 2yo and older 11/17/2010 Td Tetanus diptheria (Tdvax) 7yo and older 10/18/2022,11/17/2010 Tdap Tetanus diptheria acell ular pertussis (Boostrix; Adacel) 7yo and older 05/13/2012 Surgical History Surgery Date Site/Laterality Comments APPENDECTOMY PROCEDURE: HISTORICAL APPENDECTOMY TONSILLECTOMY PROCEDURE: HISTORICAL TONSILLECTOMY NEPHRECTOMY PROCEDURE: HISTORICAL NEPHRECTOMY; COMMENT: left radical, 11/04 TUBAL LIGATION PROCEDURE: HISTORICAL TUBAL LIGATION KNEE ARTHROSCOPY PROCEDURE: NM ARTHROSCOPY KNEE DIAGNOSTIC W/WO SYNOVIAL BX SPX; COMMENT: right 12/09 CHOLECYSTECTOMY PROCEDURE: HISTORICAL CHOLECYSTECTOMY Medical History Medical History Date Comments DM type 2 (diabetes mellitus , type 2) ([facility]/HCC) 11/05/2010 DX:DM type 2 (diabetes melli tus, type 2) ([facility]) Essential hypertension, benign 11/03/2010 D X:Essential hypertension, benign Historical Medical DX 11/03/2010 DX:Hyperli pidemia LDL goal < 100 Low back pain 11/05/2010 DX:Low back pain Constipation 05/13/2012 DX:Constipation Other specified personal his tory presenting hazards to health(V15.89) DX:Other specifie d personal history presenting hazards to health(V15.89); COMMENT: 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 Reveles, no evidence of recurrence DM (diabetes mellitus) type II uncontrolled with eye manifestation 12/26/2012 DX:DM (diabetes me llitus) type II uncontrolled with eye manifestation Microalbuminuria 11/19/2010 DX:Microalbumin uria Type 2 diabetes mellitus wit h renal manifestations not at goal ([facility]/HCC) 01/27/2013 DX:Type 2 diabete s mellitus with renal manifestations not at goal (HCC) CKD (chronic kidney disease) , stage III ([facility]/HCC) 11/19/2010 DX:CKD (chronic kidney disea se), stage III (HCC) GERD (gastroesophageal reflux disease) DX:GERD (gastroesophageal reflux disease) Osteopenia 01/17/2011 DX:Osteopenia; C OMMENT: LS T score -1.6 Rheumatoid factor positive 12/01/2011 DX:Rh eumatoid factor positive; COMMENT: No obvious synovitis as of 06/12 Gout 12/01/2011 DX:Gout; COMMENT : Hyperuricemia, recurrent lower extremity attacks, cystic change in left 1st MTP Chest pain 09/29/2013 DX:Chest pain; C OMMENT: Negative Regadenoson stress test [facility] 08/2013 Abnormal US (ultrasound) of abdomen 10/31/2013 DX:Abnormal US (ultrasound) of abdomen; COMMENT: [facility] 10/22/13 - 1.3x1.4x1.9 cm masslike thickening of GB fundus, suspect adenomyosis, recommend surgical f/u Papilledema 02/06/2014 DX:Papilledema Tear, knee, medial meniscus 11/10/2014 DX:T ear, knee, medial meniscus Hyperlipidemia with target L DL less than 100 11/03/2010 DX:Hyperlipidemia with targe t LDL less than 100; COMMENT: IMO update Noncompliance with medicatio n treatment due to underuse of medication 06/01/2015 DX:Noncompliance with medica tion treatment due to underuse of medication; COMMENT: Per [facility] call 06/01/2015 - Clarissa reports Pt is not compliant with medications, for example: Pt does not take full prescribed doses of Metoprolol if she feels that she doesn't want to. Pt was asymptomatic. Clarissa will do med education with the Pt. Cerebrovascular accident (CV A) involving right middle cerebral artery territory (CMS/HCC) 07/20/2015 DX:Cerebrovascular accident (CVA) involving right middle cerebral artery territory (HCC) Hemiparesis affecting left s mae as late effect of cerebrovascular accident (CVA) (CMS/HCC) 07/21/2015 DX:Hemiparesis affecting lef t side as late effect of cerebrovascular accident (CVA) (HCC) Sleep apnea in adult 02/11/2016 DX:Sleep ap clair in adult; COMMENT: [facility] ([facility]). Compliant with CPAP Abnormal echocardiogram 06/12/2018 DX:Abnor mal echocardiogram Family History Medical History Relation Name Comments Other: heart issues Brother Rheumato id arthritis Arthritis Daughter No Known Problems Father Other: heart problems Mother seizur es, DMII Other: heart issues Sister Breast cancer Neg Hx Colon cancer Neg Hx Heart attack Neg Hx Ovarian cancer Neg Hx Uterine cancer Neg Hx Relation Name Status Comments Brother Daughter Father Mother Sister Alive Social History Tobacco Use Types Packs/Day Years Used Date Smoking Tobacco: Never Smokeless Tobacco: Never Tobacco Cessation:Counseling Given: Not Answered Alcohol Use Standard Drinks/Week Comments No 0 (1 standard drink = 0.6 oz pur e alcohol) Sex and Gender Information Value Date Recorded Sex Assigned at Female 03/25/2024 10:50 AM EST Gender Identity Female 03/25/2024 10:50 AM EST Sexual Orientation Straight 03/25/2024 10 :50 AM EST Job Start Date Occupation Industry Not on file Not on file Not on file Obstetrics History Para Term AB IAB SAB Ectopic Multiple Livin g Live Births 6 6 6 Date Outcome GA Total Labor Labor/2nd/3rd Weight Sex Type Anes PTL Gwen A1 A5 Name Clin Term Term Term Term Term Term Last Filed Vital Signs Vital Sign Reading Time Taken Comments Blood Pressure 130/60 04/22/2024 9:04 AM EST Pulse 65 04/22/2024 9:04 AM EST Temperature 36.8 ??C (98.2 ??F) 04/22/2024 9:04 AM ES T Respiratory Rate 14 04/22/2024 9:04 AM EST Oxygen Saturation - - Inhaled Oxygen Concentration - - Weight 58.7 kg (129 lb 6.4 oz) 04/22/2024 9:04 A M EST Height 157.5 cm (5' 2 ) 04/22/2024 9:04 AM EST Body Mass Index 23.67 04/22/2024 9:04 AM EST Plan of Treatment Upcoming Encounters Date Type Department Care Team (Late st Contact Info) Description 06/06/2024 10:30 AM EST Consult Vascular Surgery - [place] [address] [place] [address] Portia Jamison PA [address] [place] [address] 06/30/2024 8:30 AM EDT Office Visit Orthopedic Surgery - [place] [address] [facility] [address] [place] [phone] Adarsh Escalante, DPDelano [address] [facility] [address] [place] [address] 11/21/2024 2:10 PM EDT Appointment Radiology Department [address] [phone] Health Maintenance Due Date Last Done Comments Diabetes: Annual Retina Eye Exam 10[birth year]05/1955 Zoster Vaccines (1 of 2) 10/05/1995 RSV Immunization Patients 60+ Years Old (1 - 1-dose 75+ series) 2020 Osteoporosis Screening (Bone Density Screening) 03/11/2022 Social Influencers of Health Screening 03/11/2022 COVID-19 Vaccine ( season) 2023 11/23/2021, 03/21/2021, 09/23/2020, Additional history exists Depression Screening 02/13/2024 02/12/2023 Diabetes: Blood Sugar Control Test (HGBA1C) 07/07/2024 01/07/2024, 01/07/2024 Falls Risk Assessment 07/16/2024 07/17/2023 Diabetes: Annual Foot Exam 12/31/2024 01/01/2024 Diabetes: Annual Urine Albumin-Creatinine Ratio (uACR) 01/06/2025 01/07/2024 Diabetes: Annual GFR (Glomerular Filtration Rate) 01/06/2025 01/07/2024, 01/07/2024 Hypertension/CHF/CAD Annual BMP Blood Test 01/06/2025 01/07/2024, 01/07/2024 Cholesterol Screening (Lipid Panel) 01/06/2029 01/07/2024, 01/07/2024 DTaP,Tdap,and Td Vaccines (4 - Td or Tdap) 10/18/2032 10/18/2022, 05/13/2012, 11/17/2010 Pneumococcal Vaccine: 65+ Years Completed 01/24/2017, 07/10/2015, 11/17/2010 Hepatitis C Screening Completed 05/18/2020 Medicare Annual Wellness Visit Discontinued 02/12/2023 Influenza Vaccine Completed 01/01/2024, , 01/26/2022, Additional history exists HIB Vaccines Aged Out No longer eligi ble based on patient's age to complete this topic HPV Vaccines Aged Out No longer eligi ble based on patient's age to complete this topic Hepatitis A Vaccines Aged Out No long er eligible based on patient's age to complete this topic Hepatitis B Vaccines Aged Out No long er eligible based on patient's age to complete this topic IPV Vaccines Aged Out No longer eligi ble based on patient's age to complete this topic MMR Vaccines Aged Out No longer eligi ble based on patient's age to complete this topic Meningococcal ACWY Vaccine Aged Out N o longer eligible based on patient's age to complete this topic RSV Immunization Patients Under 20 months Aged Out No longer eligible based on patient's age to complete this topic Varicella Vaccines Aged Out No longer eligible based on patient's age to complete this topic Procedures Procedure Name Priority Date/Time Associated Diagnosis Comments US ABDOMEN LIMITED Routine 03/31/2024 7: 21 AM EST Postoperative incisional hernia URINE ALBUMIN CREATININE RATIO Routine 01/07/2024 ANNUAL BMP BLOOD TEST Routine 01/07/2024 HEMOGLOBIN A1C Routine 01/07/2024 LIPID PANEL Routine 01/07/2024 DIABETES FOOT EXAM Routine 01/01/2024 FALLS RISK ASSESSMENT Routine 07/17/2023 DEPRESSION SCREENING Routine 02/12/2023 HEPATITIS C SCREENING Routine 05/18/2020 from Last 3 Months or Most Recently Relevant to Health Maintenance Results * US Abdomen Limited (03/31/2024 7:21 AM EST) Anatomical Region Laterality Modality Body Ultrasound 03/31/2024 9:03 AM EST Impressions 03/31/2024 9:04 AM EST Unremarkable exam. -------- FINAL REPORT -------- Dictated By: Meredith Dunn Dictated Date: 03/31/2024 09:03 ET Assigned Physician: Meredith Dunn Reviewed and Electronically Signed By: Meredith Dunn Signed Date: 03/31/2024 09:04 ET Workstation ID: [id number] Transcribed By: Self Edit Transcribed Date: 03/31/2024 09:03 ET Narrative 03/31/2024 9:04 AM EST US ABDOMEN LIMITED SONO SOFT TISSUE HISTORY: Pain midline incision upper abdomen. PRIORS: None. FINDINGS: ??Ultrasound evaluation of the painful area indicated by the patient at the incision site in the midline of the upper abdomen was performed. There is no fascial defect. No abnormality is identified. Procedure Note Meredith Dunn MD - 03/31/2024 US ABDOMEN LIMITED SONO SOFT TISSUE HISTORY: Pain midline incision upper abdomen. PRIORS: None. FINDINGS: Ultrasound evaluation of the painful area indicated by thepatient at the incision site in the midline of the upper abdomen wasperformed. There is no fascial defect. No abnormality is identified. IMPRESSION: Unremarkable exam. -------- FINAL REPORT -------- Dictated By: Meredith Dunn Dictated Date: 03/31/2024 09:03 ET Assigned Physician: Meredith Dunn Reviewed and Electronically Signed By: Meredith Dunn Signed Date: 03/31/2024 09:04 ET Workstation ID: [id number] Transcribed By: Self Edit Transcribed Date: 03/31/2024 09:03 ET Aminta BONNER IMG US PROCEDURES * Urine Albumin Creatinine Ratio (01/07/2024) [facility] Urine Albumin Creatinine Ratio Abstracted Historical Provider MD THONY DE LA ROSA * Annual BMP Blood Test (01/07/2024) [facility] Annual BMP Blood Test Abstracted Historical Provider MD THONY DE LA ROSA E * (ABNORMAL) Hemoglobin A1c (01/07/2024) [facility] Hemoglobin A1C 7.0(A) 6.5 % Blood Venous blood specimen / Unknown Historical Provider LAB BLOOD ORDERAB LES * (ABNORMAL) Lipid panel (01/07/2024) [facility] LDL/HDL Ratio 3 0 - 4 Triglycerides 152(A) 0 - 150 mg/dL Cholesterol 167 0 - 200 mg/dL HDL 59 40 mg/dL LDL Cholesterol 78 0 - 100 mg/dL Blood Venous blood specimen / Unknown Historical Provider LAB BLOOD ORDERAB LES * Diabetes Foot Exam (01/01/2024) [facility] Diabetes: Annual Foot Exam Abstracted Historical Provider MD THONY DE LA ROSA * Falls Risk Assessment (07/17/2023) [facility] Falls Risk Assessment Abstracted Historical Provider MD THONY DE LA ROSA * Depression Screening (02/12/2023) [facility] Depression Screening Abstracted Historical Provider MD THONY DE LA ROSA * Hepatitis C Screening (05/18/2020) [facility] Hepatitis C Screening Abstracted Historical Provider MD THONY DE LA ROSA E from Last 3 Months or Most Recently Relevant to Health Maintenance Care Teams Implant Polisher Relationship Specialty Start Date End Date Tegan Driscoll MD [address] [place] [id number] PCP - General Internal Medicine 11/01/21
--- OUTSIDE RECORDS SUMMARY | 2024-05-07 10:18 | XMS_ITS | Clinical Summary ---
Author Organization [employer] [facility] Address [address] [place] [address] Care Team Providers Care Tie Knitter Helper Name Role Phone Tegan Johnson MD Primary Care Prov ider Allergies Active Allergy Reactions Criticality Noted Date Comments Chlorthalidone 10/30/2019 Other reaction(s): OTHER, Other (see comments) Low potassium Low potassium Iodinated Contrast Media Swelling 11/11/2010 Other reaction(s): Other (see comments) Other reaction(s): redness itchy all over Latex 05/03/2021 Loratadine 05/24/2020 Other reaction(s): Other (see comments) Oxycodone 05/03/2021 Penicillins 07/09/2011 Other reaction(s): itching, Other (see comments) patient tolerates piperacillin/tazobactam Medications Medication Sig Dispensed Refills Start Date End Date Status NIFEdipine ER (ADALAT CC) 60 MG 24 hr tablet Take 2 tablets (120 mg total) by mouth daily. 0 03/17/2014 Active rosuvastatin (CRESTOR) tablet 40 mg Take 1 tablet (40 mg total) by mouth daily. 0 04/01/2020 Active spironolactone (ALDACTONE) tablet 25 mg 0 11/05/2014 Active gabapentin (NEURONTIN) 100 MG capsule Take 2 capsules (200 mg total) by mouth every night at bedtime. 0 07/30/2023 Active clopidogrel (PLAVIX) 75 MG tablet Take 1 tablet (75 mg total) by mouth daily. 0 06/11/2015 Active Cholecalciferol 25 MCG (1000 UT) capsule Take 1,000 Units by mouth. 0 07/17/2023 Active Active Problems No known active problems Social History Tobacco Use Types Packs/Day Years Used Date Smoking Tobacco: Never Smokeless Tobacco: Never Tobacco Cessation:Counseling Given: Not Answered Alcohol Use Standard Drinks/Week Comments Never 0 (1 standard drink = 0.6 oz pur e alcohol) Sex and Gender Information Value Date Recorded Sex Assigned at Not on file Gender Identity Not on file Sexual Orientation Not on file Job Start Date Occupation Industry Not on file Not on file Not on file Last Filed Vital Signs Vital Sign Reading Time Taken Comments Blood Pressure 133/74 08/29/2023 10:11 AM EDT Pulse 72 08/29/2023 10:11 AM EDT Temperature 36.4 ??C (97.6 ??F) 08/29/2023 10:11 AM E DT Respiratory Rate - - Oxygen Saturation 100% 08/29/2023 10:11 AM EDT Inhaled Oxygen Concentration - - Weight 50.8 kg (112 lb) 08/29/2023 10:11 AM EDT Height 154.9 cm (5' 1 ) 08/29/2023 10:11 AM EDT Body Mass Index 21.16 08/29/2023 10:11 AM EDT Plan of Treatment Health Maintenance Due Date Last Done Comments Hepatitis C Screening 1945 COVID-19 Vaccine (#1) 04/06/1946 Depression Screening 1957 Preventative Health Evaluation 10/05/1963 Shingrix-Zoster Vaccine (1 of 2) 10/05/1995 Fall Risk Assessment 2010 Osteoporosis Screening (DEXA Scan) 2010 RSV Adult > 60+ Yrs or (1 - 1-dose 75+ series) 2020 DTap / Tdap / Td (2 - Td or Tdap) 05/13/2022 05/13/2012, 11/17/2010 Influenza Vaccine (#1) 2023 3, 01/28/2021, 01/28/2021, Additional history exists Pneumococcal Vaccine Completed 01/24/2017, 07/10/2015, 11/17/2010 Hepatitis B Vaccines Aged Out No long er eligible based on patient's age to complete this topic RSV Ped < 20 months Aged Out No longe r eligible based on patient's age to complete this topic Care Teams Tie Knitter Helper Relationship Specialty Start Date End Date Tegan Johnson MD [address] [place] [address] PCP - General Internal Medicine 07/31/23
--- OUTSIDE RECORDS SUMMARY | 2024-05-07 10:18 | XMS_ITS | Clinical Summary ---
Author Organization [facility] Address [address] [facility] [address] [place] [address] Phone Care Team Providers Care Molding Engineer Name Role Phone Marissa Bray CNP Primary Care Provider [phone] Allergies Active Allergy Reactions Criticality Noted Date Comments Chlorthalidone Other (see comments) 10/30/2019 Low potassium Iodinated Contrast Media Swelling,Other (see comments) 11/11/2010 Other reaction(s): redness itchy all over Latex 05/03/2021 Loratadine Other (see comments) 05/24/2020 Oxycodone 05/03/2021 Penicillins Other (see comments) 05/24/2020 Medications acetaminophen (TYLENOL) 325 MG tablet Take 2 tablets by mouth every 4 (four) hours Active allopurinol (ZYLOPRIM) 100 MG tablet Take 4 tablets by mouth 1 (one) time each day Active cholecalciferol (VITAMIN D-3) 25 MCG (1000 UT) capsule Take 1 capsule by mouth 1 (one) time each day Active gabapentin (NEURONTIN) 300 MG capsule Take 1 capsule by mouth 1 (one) time each day 9 Active insulin aspart (NovoLOG) 100 UNIT/ML injection Active insulin glargine (Lantus) 100 UNIT/ML injection Active rosuvastatin (CRESTOR) 40 MG tablet Take 40 mg by mouth daily 0 Active ascorbic acid (VITAMIN C) 250 MG tablet Take 250 mg by mouth 1 (one) time each day 0 Active B Complex Vitamins (B Complex-B12) tablet Take 1 tablet by mouth daily 0 Active betamethasone dipropionate 0.05 % cream Apply 1 application topically 2 (two) times a day 1 Active Deep Sea Nasal [place] 0.65 % nasal spray Administer 1 spray into each nostril if needed 1 Active fluticasone (FLONASE) 50 MCG/ACT nasal spray SHAKE LIQUID AND USE 2 SPRAYS IN EACH NOSTRIL DAILY 1 Active clopidogrel (PLAVIX) 75 MG tablet Take 1 tablet by mouth 1 (one) time each day 2 Active cetirizine (ZyrTEC) 10 MG tablet TAKE 1 TABLET BY MOUTH DAILY 1 Active montelukast (SINGULAIR) 10 MG tablet Take 10 mg by mouth at bed time 2 Active valACYclovir (VALTREX) 1 g tablet TAKE 1 TABLET BY MOUTH THREE TIMES DAILY FOR 7 DAYS 2 Active Lancets (freestyle) lancets CHECK BLOOD SUGAR FOUR TIMES DAILY 2 Active spironolactone (Aldactone) 25 MG tablet Take 1 tablet (25 mg total) by mouth 1 (one) time each day 30 tablet 11 2 Active NIFEdipine CC (ADALAT CC) 60 MG 24 hr tablet TAKE 2 TABLETS(120 MG) BY MOUTH EVERY DAY. DO NOT CRUSH, CHEW, OR SPLIT 60 tablet 3 2 Active omeprazole (PriLOSEC) [address] capsule Take 20 mg by mouth 1 (one) time each day 2 Active NIFEdipine CC (ADALAT CC) 60 MG 24 hr tablet TAKE 2 TABLETS(120 MG) BY MOUTH EVERY DAY. DO NOT CRUSH, CHEW, OR SPLIT 60 tablet 3 3 Active NIFEdipine CC (ADALAT CC) 60 MG 24 hr tablet TAKE 2 TABLETS(120 MG) BY MOUTH EVERY DAY. DO NOT CRUSH, CHEW, OR SPLIT 60 tablet 3 3 Active Active Problems Problem Noted Date Diagnosed Date Stage 3 chronic kidney disease, not otherwise sp ecified 09/26/2021 Hyperparathyroidism due to renal insufficiency 0 05/03/2021 Vitamin D deficiency 05/03/2021 Hypertension 01/27/2021 Hypertensive renal disease 05/24/2020 Chronic kidney disease stage 3 11/19/2010 Benign essential hypertension 11/03/2010 Resolved Problems Problem Noted Date Diagnosed Date Resolved Date Cardiac murmur 01/28/2021 07/07/2021 History of SARS-CoV-2 09/21/20202021 Overview (01/27/2021): Positive 07/27/2020 Hyperkalemia 05/24/2020 09/22/2021 Hypokalemia 05/24/2020 09/22/2021 Peripheral vascular disease 08/06/2018 08/20/2020 Overview (05/24/2020): [facility] Abnormal echocardiogram 06/12/201808/01 Obstructive sleep apnea syndrome 02/11/2016 08/20/2020 Overview (05/24/2020): [facility] ([facility]). 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 Continue current regimen. See diabetes sec reporting consultant/educator as planned. Return in 3 months with lab tests at least 1 week before next visit. [facility] - see testing 07/31/18 - stenoses in both lower extremity arteries; 12/2019 multilevel stenoses Constipation 05/13/2012 08/20/2020 Gout 12/01/2011 08/20/2020 Overview (05/24/2020): Hyperuricemia, recurrent lower extremity attacks, cystic change in left 1st MTP Rheumatoid factor detected 12/01/2011 0 08/20/2020 Overview (05/24/2020): No obvious synovitis as of 06/12 Gastroesophageal reflux disease 01/17/2011 08/20/2020 Osteopenia 01/17/2011 08/20/2020 Overview (05/24/2020): LS T score -1.6 Proteinuria 11/19/2010 09/22/2021 Low back pain 11/05/2010 08/20/2020 Hyperlipidemia 11/03/2010 08/20/2020 Overview (05/24/2020): IMO update Immunizations Name Administration Dates Next Due Influenza Split High Dose Pr eservative Free IM 01/28/2021,01/25/2020,12/11/2017,01/16 Influenza TIV (IM) 05/18/2016, 5,05/25/2014,12/23,05/13/2012 Influenza, Unspecified 01/25/2020 Moderna SARS-COV-2 03/22/2021,,09/23/2020,08/26,08/26/2020 Pneumococcal Conjugate 13-Valent 01/24/2017,04/0 12/2015 Pneumococcal Polysaccharide 11/17/2010 Td 11/17/2010 Td, Unspecified 11/17/2010 Tdap 05/13/2012 Family History Medical History Relation Comments Hypertension Child Diabetes Mother Hypertension Mother Heart disease Sibling 1 Kidney disease Sibling 2 Diabetes Sibling 3 Relation Status Comments Child Father Mother Sibling 1 Sibling 2 Sibling 3 Social History Tobacco Use Types Packs/Day Years Used Date Smoking Tobacco: Never Smokeless Tobacco: Never Tobacco Cessation:Counseling Given: Not Answered Alcohol Use Standard Drinks/Week Comments No 0 (1 standard drink = 0.6 oz pur e alcohol) Comments Unknown Sex and Gender Information Value Date Recorded Sex Assigned at Not on file Legal Sex Female 5:11 PM EST Gender Identity Not on file Sexual Orientation Not on file Last Filed Vital Signs Vital Sign Reading Time Taken Comments Blood Pressure 140/58 09/19/2022 2:50 PM EDT Pulse 70 09/19/2022 2:50 PM EDT Temperature - - Respiratory Rate - - Oxygen Saturation 98% 09/19/2022 2:50 PM EDT Inhaled Oxygen Concentration - - Weight 58 kg (127 lb 12.8 oz) 09/19/2022 2:50 PM EDT Height 157.5 cm (5' 2 ) 09/19/2022 2:50 PM EDT Body Mass Index 23.37 09/19/2022 2:50 PM EDT Plan of Treatment Health Maintenance Due Date Last Done Comments Influenza Vaccine (#1) 2023 , 01/25/2020, 01/25/2020, Additional history exists Pneumococcal Vaccine: 65+ Years Completed 01/24/2017, 07/10/2015, 11/17/2010 Hepatitis B Vaccine Aged Out No longe r eligible based on patient's age to complete this topic Insurance MCR ([id number]) [place] [id number] ([id number]) Care Teams Molding Engineer Relationship Specialty Start Date End Date Marissa Bray CNP PCP - General Nurse Practitioner 04/18/22
--- OUTSIDE RECORDS SUMMARY | 2024-05-07 10:19 | XMS_ITS | Encounter Summary ---
Author Organization [facility] Address [address] [place] [address] Care Team Providers Care Accounting Recruiter Name Role Phone Tegan Driscoll MD Primary Care Prov ider Reason for Visit * Reason Comments Rash X 2 weeks. Right upp er thigh Encounter Details Date Type Department Care Team (Late st Contact Info) Description 04/22/2024 9:00 AM EST Office Visit Adult Medicine [address] [phone] Jaclyn Helms PA [address] [place] [address] Dermatitis (Primary Dx) Social History Tobacco Use Types Packs/Day Years [...] on file documented as of this encounter Last Filed Vital Signs Vital Sign Reading [...] Mass Index 23.67 04/22/2024 9:04 AM EST documented in this encounter Ordered Prescriptions Prescription Sig Dispensed Refills Start Date End Da te triamcinolone (KENALOG) 0.1 % cream Apply to affected area 1-2 times daily as needed for 2 weeks 15 g 04/22/2024 06/21/2024 documented in this encounter Progress Notes * HA Read - 04/22/2024 9:00 AM EST CHIEF COMPLAINT: Rash (X 2 weeks. Right upper thigh ) IDENTIFIER: Deonna Escobar is a 78 y.o. old female. HPI: Patient is a 78-year-old female who presents to the office today complaining of a new rash on her lower extremities. She is accompanied by her daughter who is helping with [place] translation. The rash itches, does not hurt, has been present for 2 weeks. She denies any new medications, soaps, detergents. She has diabetes, fasting blood sugar this morning was 124. ROS: GENERAL: No malaise, significant weight loss or fever RESPIRATORY: No cough, wheezing or shortness of breath CARDIOVASCULAR: No chest pain, leg swelling or palpitations SKIN: See HPI NEURO: No numbness PAST MEDICAL HISTORY: Patient Active Problem List Diagnosis Date Noted Abnormal EKG 10/10/2022 Osteoarthritis of spine with radiculopathy, lumbar region 06/02/2022 Hyperparathyroidism due to renal insufficiency ([facility]) 05/03/2021 Vitamin D deficiency 05/03/2021 Murmur, cardiac 01/28/2021 Hypokalemia 01/22/2020 Diabetes mellitus type 2 with peripheral artery disease ([facility]) 08/06/2018 Peripheral artery disease ([facility]) 08/06/2018 Abnormal echocardiogram 06/12/2018 ROSEANNA (obstructive sleep apnea) 02/11/2016 Hemiparesis affecting left side as late effect of cerebrovascular accident (CVA) ([facility]) 07/21/2015 Cerebrovascular accident (CVA) involving right middle cerebral artery territory ([facility]) 07/20/2015 Tear, knee, medial meniscus 11/10/2014 Papilledema 02/06/2014 Chest pain 09/29/2013 Type 2 diabetes mellitus with renal manifestations ([facility]) 01/27/2013 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 ([facility]) 12/26/2012 Constipation 05/13/2012 Gout 12/01/2011 Rheumatoid factor positive 12/01/2011 GERD (gastroesophageal reflux disease) 01/17/2011 Osteopenia 01/17/2011 CKD (chronic kidney disease), stage III ([facility]) 11/19/2010 Microalbuminuria 11/19/2010 Low back pain 11/05/2010 Essential hypertension, benign 11/03/2010 Hyperlipidemia 11/03/2010 Past Surgical History: Procedure Laterality Date APPENDECTOMY PROCEDURE: HISTORICAL APPENDECTOMY CHOLECYSTECTOMY PROCEDURE: HISTORICAL CHOLECYSTECTOMY KNEE ARTHROSCOPY PROCEDURE: ND ARTHROSCOPY KNEE DIAGNOSTIC W/WO SYNOVIAL BX SPX; COMMENT: right 12/09 NEPHRECTOMY PROCEDURE: HISTORICAL NEPHRECTOMY; COMMENT: left radical, 11/04 TONSILLECTOMY PROCEDURE: HISTORICAL TONSILLECTOMY TUBAL LIGATION PROCEDURE: HISTORICAL TUBAL LIGATION SOCIAL HISTORY: Social History Tobacco Use Smoking status: Never Smokeless tobacco: Never Substance Use Topics Alcohol use: No FAMILY HISTORY: Family History Problem Relation Name Age of Onset Other (Other: heart problems) Mother seizures, DMII No Known Problems Father Other (Other: heart issues) Sister Other (Other: heart issues) Brother Rheumatoid arthritis Arthritis Daughter Colon cancer Neg Hx Breast cancer Neg Hx Heart attack Neg Hx Uterine cancer Neg Hx Ovarian cancer Neg Hx MEDICATIONS DISCONTINUED/REORDERED: There are no discontinued medications. ACTIVE MEDICATIONS: Outpatient Medications Marked as Taking for the 04/22/24 encounter (Office Visit) with HA Read Medication Sig Dispense Refill acetaminophen (TYLENOL) 500 mg tablet Take 1 tablet (500 mg total) by mouth every 6 (six) hours if needed. alcohol swabs pads, medicated 1 Packet by Subdermal route daily. USE FOUR TIMES DAILY amLODIPine (NORVASC) 10 mg tablet Take 1 tablet (10 mg total) by mouth 1 (one) time each day. calcium carbonate 1,500 mg (600 mg elemental calcium) tablet Take 600 mg by mouth 2 (two) times a day with meals. cholecalciferol (VITAMIN D-3) 25 mcg (1,000 unit) capsule Take 1 capsule (1,000 Units total) by mouth 1 (one) time each day. clopidogreL (PLAVIX) 75 mg tablet Take 1 tablet (75 mg total) by mouth 1 (one) time each day. clotrimazole (LOTRIMIN) 1 % cream Apply to skin and toenails daily for 12 weeks diclofenac (VOLTAREN) 1 % topical gel Apply 1 g topically 3 (three) times a day. dulaglutide (Trulicity) 0.75 mg/0.5 mL pen injector injection Inject 0.5 mL (0.75 mg total) under the skin 1 (one) time per week. FREESTYLE LANCETS MISC USE FOUR TIMES DAILY DIRECTED glucose blood (FreeStyle Precision Leonardo Strips) test strip USE TO CHECK BLOOD SUGAR 4 TIMES A DAY. HYDROmorphone (DILAUDID) 2 mg tablet insulin aspart (NovoLOG Flexpen U-100 Insulin) 100 unit/mL (3 mL) injection pen ADMINISTER 4 TO 12 UNITS UNDER THE SKIN THREE TIMES DAILY BEFORE MEALS insulin glargine (Lantus Solostar U-100 Insulin) 100 unit/mL (3 mL) injection pen Inject 10 Units as directed at bedtime. insulin syringe-needle U-100 0.5 mL 29 gauge x 1/2 syringe Inject 1 Syringe into the skin 4 times daily. omeprazole (PriLOSEC) [address] capsule Take 1 capsule (20 mg total) by mouth 1 (one) time each day. pen needle, diabetic 32 gauge x 5/32 needle USE DIRECTED FOUR TIMES DAILY rosuvastatin (CRESTOR) 40 mg tablet Take 1 tablet (40 mg total) by mouth 1 (one) time each day. Vitamins B Complex tablet TAKE 1 TABLET BY MOUTH DAILY 90 tablet 0 ALLERGIES: Allergies Allergen Reactions Chlorthalidone Other Low potassium Other reaction(s): OTHER, Other (see comments) Low potassium Low potassium Iodinated Contrast Media Swelling Latex Loratadine Other reaction(s): Other (see comments) Oxycodone Penicillins Other reaction(s): itching, Other (see comments) patient tolerates piperacillin/tazobactam PHYSICAL EXAM: Blood pressure 130/60, pulse 65, temperature 36.8 ??C (98.2 ??F), temperature source Temporal, resp. rate 14, height 1.575 m (62 ), weight 58.7 kg (129 lb 6.4 oz). Body mass index is 23.67 kg/m??. BMI is 18.5 to 24.9 (within the normal range) and will be followed APPEARANCE: Alert and in no acute distress HEART: RRR with normal S1 and S2, no murmurs, no gallops LUNG: Clear to auscultation EXTREMITIES: No edema NEURO: Awake, alert and oriented x 3 SKIN: On the right leg, there are 2 eczematous nontender skin lesions noted. On the left thigh there is another one LABS: Lab Results Component Value Date HGBA1C 7.0 (A) 01/07/2024 IMAGING: None IMPRESSION/PLAN: 1. Dermatitis Medication and lab orders: No orders of the defined types were placed in this encounter. Other orders: None Itchy skin lesions consistent with dermatitis. She denies any new medications, soaps, detergents. She has diabetes, fasting blood sugar this morning was 124. Will treat with triamcinolone 0.1% cream to be applied 1-2x daily for 2 weeks. Consider referral to dermatology if no better. Advised the patient to call me if any problems. Patient understands the plan. Patient is in agreement with the plan. Today's documentation was made using voice recognition software.This note may contain grammatical errors secondary to this software. Jaclyn Helms PA-C documented in this encounter Plan of Treatment Upcoming Encounters Date Type Department Care Team (Late st Contact Info) Description 06/06/2024 10:30 AM EST Consult Vascular Surgery - [place] [address] [facility] [address] [place] [address] Portia Jamison PA [address] [place] [address] 06/30/2024 8:30 AM EDT Office Visit Orthopedic Surgery [facility] [address] [facility] [address] [place] [phone] Adarsh Escalante, DPM [address] [address] 11/21/2024 2:10 PM EDT Appointment Radiology Department - [address] [phone] documented as of this encounter Visit Diagnoses Diagnosis Dermatitis- Primary Contact dermatitis and other eczema, due to unspecified cause Encounter for screening mammogram for breast cancer documented in this encounter Care Teams Accounting Recruiter Relationship Specialty Start Date End Date Tegan Driscoll MD [address] [place] [phone] PCP - General Internal Medicine 11/01/21 documented as of this encounter
[2024-05-07 18:27] LABS: MANUAL DIFF FLAG NO
[2024-05-07 18:30] LABS: Basophils Percent Auto 0.5 % (0-2); Eosinophils Absolute Auto 0.4 X10*3/uL (0.0-0.4); Eosinophils Percent Auto 4.8 % (0-4); Hematocrit 39.9 % (37.0-47.0); Hemoglobin 12.6 g/dl (12.0-16.0); Imm Gran Abs Auto 0.01 X10*3/uL (0.00-0.03); Imm Gran Pct Auto 0.1 % (0.0-0.4); Lymphocytes Absolute Auto 1.5 X10*3/uL (1.2-4.9); Lymphocytes Percent Auto 19.4 % (20-40); Mean Corpuscular HGB Conc 31.6 g/dl (31.0-35.0); Mean Corpuscular Hemoglobin 26.6 pg (27.0-33.0); Mean Corpuscular Volume 84.2 fL (80.0-98.0); Mean Platelet Volume 11.3 fL (9.4-12.3); Monocytes Absolute Auto 0.4 X10*3/uL (0.1-1.2); Monocytes Percent Auto 5.2 % (2-11); Neutrophils Absolute Auto 5.4 x10*3/uL (2.0-8.3); Platelet Count 308 X10*3/uL (160-400); Red Blood Count 4.74 X10*6/uL (4.20-5.50); Red Cell Distribution Width 13.2 % (11.0-16.0); White Blood Count 7.7 X10*3/uL (4.8-10.8)
[2024-05-07 19:06] LABS: Anion Gap 10 (12-20); Blood Urea Nitrogen 37 mg/dL (9-16); Carbon Dioxide 28 mmol/L (22-29); Chloride 104 mmol/L (96-108); Estimated Glomerular Filt Rate 30; Potassium 3.2 mmol/L (3.3-5.1); Sodium 139 mmol/L (135-145)
[2024-05-07 19:07] LABS: Vitamin D 25-OH Total 82.8 ng/mL (>30)
== END 2024-05-07 09:44 | disposition home or self-care (01) ==
LOC: HO.HKASLDS 09:43
PROVIDERS: Visit Provider Internal Medicine Nephrology
DX: I69.359 Hemiplegia and hemiparesis following cerebral infarction affecting unspecified side (principal); I12.9 Hypertensive chronic kidney disease with stage 1 through stage 4 chronic kidney disease, or unspecified chronic kidney disease; N18.30 Chronic kidney disease, stage 3 unspecified; N18.32 Chronic kidney disease, stage 3b
CPT/HCPCS: 36415; 80051; 82306; 82565; 84520; 85025

== ENCOUNTER 2024-05-08 11:04 | Outpatient (AMB) | payer OTHER, SELFPAY ==
--- OUTSIDE RECORDS SUMMARY | 2024-05-08 11:09 | XMS_ITS | Encounter Summary ---
Author Organization [facility] Address [address] [place] [address] Care Team Providers Care Commercial Baking Teacher Name Role Phone Tegan Driscoll MD Primary Care Prov ider Reason for Visit * Reason Onset Date Comments Rash 04/21/2024 Encounter Details Date Type Department Care Team (Late st Contact Info) Description 04/21/2024 Telephone Adult Medicine [address] [phone] Tegan Driscoll MD [address] [place] [phone] Rash Social History Tobacco Use Types Packs/Day [...] traveled recently to another state outside of [place], [place], [place], [place], [place], [place], [place]? no o If yes, did you quarantine [...] 10:30 AM EST Consult Vascular Surgery - [place] [address] [place] [phone] Portia Jamison PA [address] [place] [address] 06/30/2024 8:30 AM EDT Office Visit Orthopedic Surgery - [place] [address] [address] Adarsh Escalante, DPM [address] [address] 11/21/2024 2:10 PM EDT Appointment Radiology Department - [address] [phone] documented as of this encounter Visit Diagnoses Not on filedocumented in this encounter Care Teams Commercial Baking Teacher Relationship Specialty Start Date End Date Tegan Driscoll MD [address] [place] [address] PCP - General Internal Medicine 11/01/21 documented as of this encounter
--- OUTSIDE RECORDS SUMMARY | 2024-05-08 11:09 | XMS_ITS | Encounter Summary ---
Author Organization [facility] Address [address] [place] [address] Care Team Providers Care Photo Journalist Name Role Phone Tegan Driscoll MD Primary Care Prov ider Reason for Visit * Reason Comments Rash X 2 weeks. Right upp er thigh Encounter Details Date Type Department Care Team (Late st Contact Info) Description 04/22/2024 9:00 AM EST Office Visit Adult Medicine [address] [phone] Jaclyn Helms PA [address] [place] [address] Dermatitis (Primary Dx) Social History Tobacco Use [...] by her daughter who is helping with [place] translation. The rash itches, does not hurt, [...] region 06/02/2022 Hyperparathyroidism due to renal insufficiency ([facility]) 05/03/2021 Vitamin D deficiency 05/03/2021 Murmur, cardiac 01/28/2021 Hypokalemia 01/22/2020 Diabetes mellitus type 2 with peripheral artery disease ([facility]) 08/06/2018 Peripheral artery disease ([facility]) 08/06/2018 Abnormal echocardiogram 06/12/2018 ROSEANNA (obstructive sleep apnea) 02/11/2016 Hemiparesis affecting left side as late effect of cerebrovascular accident (CVA) ([facility]) 07/21/2015 Cerebrovascular accident (CVA) involving right middle cerebral artery territory ([facility]) 07/20/2015 Tear, knee, medial meniscus 11/10/2014 Papilledema 02/06/2014 Chest pain 09/29/2013 Type 2 diabetes mellitus with renal manifestations ([facility]) 01/27/2013 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 ([facility]) 12/26/2012 Constipation 05/13/2012 Gout 12/01/2011 Rheumatoid factor positive 12/01/2011 GERD (gastroesophageal reflux disease) 01/17/2011 Osteopenia 01/17/2011 CKD (chronic kidney disease), stage III ([facility]) 11/19/2010 Microalbuminuria 11/19/2010 Low back pain 11/05/2010 Essential hypertension, benign 11/03/2010 Hyperlipidemia 11/03/2010 Past Surgical History: Procedure Laterality Date APPENDECTOMY PROCEDURE: HISTORICAL APPENDECTOMY CHOLECYSTECTOMY PROCEDURE: HISTORICAL CHOLECYSTECTOMY KNEE ARTHROSCOPY PROCEDURE: [place] ARTHROSCOPY KNEE DIAGNOSTIC W/WO SYNOVIAL BX SPX; [...] 10:30 AM EST Consult Vascular Surgery - [place] [address] [facility] [address] [place] [address] Portia Jamison PA [address] [place] [address] 06/30/2024 8:30 AM EDT Office Visit Orthopedic Surgery [facility] [address] [facility] [address] [place] [phone] Adarsh Escalante, DPM [address] [address] 11/21/2024 2:10 PM EDT Appointment Radiology Department - [address] [phone] documented as of this encounter Visit Diagnoses Diagnosis Dermatitis- Primary Contact dermatitis and other eczema, due to unspecified cause Encounter for screening mammogram for breast cancer documented in this encounter Care Teams Photo Journalist Relationship Specialty Start Date End Date Tegan Driscoll MD [address] [place] [phone] PCP - General Internal Medicine 11/01/21 documented as of this encounter
--- OUTSIDE RECORDS SUMMARY | 2024-05-08 11:09 | XMS_ITS | Clinical Summary ---
Author Organization [facility] Address [address] [facility] [address] [place] [address] Phone Care Team Providers Care Telephone Ad Taker Name Role Phone Marissa Bray CNP Primary Care Provider [phone] Allergies Active Allergy Reactions Criticality Noted Date [...] a day 1 Active Deep Sea Nasal [place] 0.65 % nasal spray Administer 1 spray [...] Peripheral vascular disease 08/06/2018 08/20/2020 Overview (05/24/2020): [facility] Abnormal echocardiogram 06/12/201808/01 Obstructive sleep apnea syndrome 02/11/2016 08/20/2020 Overview (05/24/2020): [facility] ([facility]). 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 Continue current regimen. See diabetes associate financial representative/educator as planned. Return in 3 months with lab tests at least 1 week before next visit. [facility] - see testing 07/31/18 - stenoses [...] this topic Insurance MCR ([id number]) [place] [id number] ([id number]) Care Teams Telephone Ad Taker Relationship Specialty Start Date End Date Marissa Bray CNP PCP - General Nurse Practitioner 04/18/22
--- OUTSIDE RECORDS SUMMARY | 2024-05-08 11:09 | XMS_ITS | Clinical Summary ---
Author Organization [facility] [address] [facility] Address [address] [place] [address] Phone Care Team Providers Care Rail Bonder Name Role Phone Tegan Driscoll MD Primary [...] with peripheral artery disease 08/06/2018 Overview (01/09/2024): [facility] Cardio - see testing 07/31/18 - stenoses in both lower extremity arteries; 12/2019 multilevel stenoses Peripheral artery disease 08/06/2018 Overview (01/09/2024): [facility] Cardio Last Assessment & Plan: Overall, no obvious claudication symptoms with ambulation. We will continue current regimen. She had fairly significant murmur/Kaylyn in bilateral neck area which could be transmitted from LVOT murmur. We will arrange carotid ultrasound. Abnormal echocardiogram 06/12/2018 ROSEANNA (obstructive sleep apnea) 02/11/2016 Overview (01/09/2024): [facility] ([facility]). 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 Continue current regimen. See diabetes turpentine distiller/educator as planned. Return in 3 months with [...] 9:00 AM EST Office Visit Adult Medicine [address] [phone] Jaclyn Helms PA Dermatitis (Primary Dx) 04/21/2024 Telephone Adult Medicine [address] [phone] Tegan Driscoll MD Rash 03/31/2024 9:45 AM EST Office Visit Orthopedic Surgery [facility] [address] [facility] [address] [place] [phone] Adarsh Escalante DPM Peripheral venous insufficiency (Primary Dx); Dermatophytosis of nail; Pain in toe of right foot; Pain in toe of left foot; Diabetic mononeuropathy simplex (CMS/HCC); Type II diabetes mellitus with peripheral circulatory disorder (CMS/HCC) 03/31/2024 7:04 AM EST - 03/31/2024 11:59 PM EST Hospital Encounter Radiology Department - [address] [phone] Postoperative incisional hernia Discharge Disposition: Home or Self Care 03/24/2024 2:00 PM EST Office Visit Obstetrics and Gynecology - [address] [phone] Nona Merlos CNM Encounter for annual routine gynecological examination 03/24/2024 10:30 AM EST Office Visit Bariatric Surgery [facility] 175 [facility] [address] [place] [phone] Isaura Khoury MD History of open sigmoidectomy [...] PROCEDURE: HISTORICAL TUBAL LIGATION KNEE ARTHROSCOPY PROCEDURE: KS ARTHROSCOPY KNEE DIAGNOSTIC W/WO SYNOVIAL BX SPX; COMMENT: right 12/09 CHOLECYSTECTOMY PROCEDURE: HISTORICAL CHOLECYSTECTOMY Medical History Medical History Date Comments DM type 2 (diabetes mellitus , type 2) ([facility]/HCC) 11/05/2010 DX:DM type 2 (diabetes melli tus, type 2) ([facility]) Essential hypertension, benign 11/03/2010 D X:Essential hypertension, [...] wit h renal manifestations not at goal ([facility]/HCC) 01/27/2013 DX:Type 2 diabete s mellitus with renal manifestations not at goal (HCC) CKD (chronic kidney disease) , stage III ([facility]/HCC) 11/19/2010 DX:CKD (chronic kidney disea se), stage [...] pain; C OMMENT: Negative Regadenoson stress test [facility] 08/2013 Abnormal US (ultrasound) [...] clair in adult; COMMENT: [facility] ([facility]). Compliant with CPAP Abnormal echocardiogram 06/12/2018 DX:Abnor [...] 10:30 AM EST Consult Vascular Surgery - [place] [address] [place] [address] Portia Jamison PA [address] [place] [address] 06/30/2024 8:30 AM EDT Office Visit Orthopedic Surgery - [place] 250 175 [facility] [address] [place] [phone] Adarsh Escalante, DPDelano 175 [facility] 250 [place] [address] 11/21/2024 2:10 PM EDT Appointment Radiology Department [address] [phone] Health Maintenance Due Date Last Done Comments [...] Signed Date: 03/31/2024 09:04 ET Workstation ID: [id number] Transcribed By: Self Edit Transcribed Date: 03/31/2024 [...] Date: 03/31/2024 09:03 ET Assigned Physician: Meredith uDnn Reviewed and Electronically Signed By: Meredith Dunn Signed Date: 03/31/2024 09:04 ET Workstation ID: [id number] Transcribed By: Self Edit Transcribed Date: 03/31/2024 09:03 ET Aminta BONNER IMG US PROCEDURES * Urine Albumin Creatinine Ratio (01/07/2024) [facility] Urine Albumin Creatinine Ratio Abstracted Historical Provider MD THONY DE LA ROSA * Annual BMP Blood Test (01/07/2024) [facility] Annual BMP Blood Test Abstracted Historical Provider MD THONY DE LA ROSA E * (ABNORMAL) Hemoglobin A1c (01/07/2024) [facility] Hemoglobin A1C 7.0(A) 6.5 % Blood Venous blood specimen / Unknown Historical Provider LAB BLOOD ORDERAB LES * (ABNORMAL) Lipid panel (01/07/2024) [facility] LDL/HDL Ratio 3 0 - 4 Triglycerides 152(A) 0 - 150 mg/dL Cholesterol 167 0 - 200 mg/dL HDL 59 40 mg/dL LDL Cholesterol 78 0 - 100 mg/dL Blood Venous blood specimen / Unknown Historical Provider LAB BLOOD ORDERAB LES * Diabetes Foot Exam (01/01/2024) [facility] Diabetes: Annual Foot Exam Abstracted Historical Provider MD THONY DE LA ROSA * Falls Risk Assessment (07/17/2023) [facility] Falls Risk Assessment Abstracted Historical Provider MD THONY DE LA ROSA * Depression Screening (02/12/2023) [facility] Depression Screening Abstracted Historical Provider MD THONY DE LA ROSA * Hepatitis C Screening (05/18/2020) [facility] Hepatitis C Screening Abstracted Historical Provider MD THONY DE LA ROSA E from Last 3 Months or Most Recently Relevant to Health Maintenance Care Teams Rail Bonder Relationship Specialty Start Date End Date Tegan Driscoll MD [address] [place] [id number] PCP - General Internal Medicine 11/01/21
--- NOTE | 2024-05-08 11:54 | HO.NEPHOV ---
Vital Signs 05/08/24 11:57 Height 5 ft 1 in Weight 127 lb 8 oz BMI 24.1 BP 150/100 H Blood Pressure Location Lt brachial Position Sitting Intake Visit Reasons: 2 mnts f/u with Labs/ Conf Molding And Trim Installer Required: Yes Molding And Trim Installer Language: Italian Accompanied by: Daughter Allergies Penicillins Allergy (Verified 05/08/24 11:55) Unknown HPI Comments Details: Deonna was accompanied by her daughter in follow-up for chronic kidney disease and hypertension.She had CVA in the past without residual left side weakness. She denies any headache, visual disturbances, new weakness, chest pain, shortness of breath, proximal nocturnal dyspnea, orthopnea, pedal edema or urinary symptoms. She denies taking nonsteroidal anti-inflammatory medications. Her blood sugar control has been good. Her blood pressure control has been at goal at home. She still is on Plavix. She maintains good hydration [facility] Medical History (Updated 05/08/24 @ 12:07 by Carlitos Verdugo MD) Hyperlipidemia Renal cell cancer Stroke Chronic kidney disease Essential (primary) hypertension Surgical History History of cholecystectomy History of nephrectomy History of kidney surgery History of knee surgery History of cataract surgery Family History Daughter Hypertension Son Hypertension Social History Alcohol intake: never Patient Tobacco Use Status: Never used Tobacco Review of Systems Const All systems reviewed & are unremarkable except as noted in HPI and below Physical Exam Vital Signs: Last Vital Signs BP 150/100 H 05/08/24 11:57 BMI result Body Mass Index 24.1 Const General: comfortable and no acute distress Orientation/consciousness: patient oriented x3 HEENT Head: Yes normocephalic Mouth: Normal oral and palatal mucosa present Eyes EOM: EOMs intact bilaterally Neck Neck: Yes supple Resp Auscultation: clear to auscultation bilaterally Cardio Jugular venous distension: no JVD Rate: regular rate GI Palpation (GI): Soft to palpation Auscultation: normal bowel sounds General: Yes no CVA tenderness Back/Spine/Pelvis Back: no CVA tenderness Skin General skin exam: no rashes or lesions noted Neuro General: patient oriented x3 and moves all extremities Extrem General: Yes no pedal edema Results Reviewed Nephrology Results: Hgb 12.6 g/dl (12.0-16.0) 05/07/24 WBC 7.7 X10*3/uL (4.8-10.8) 05/07/24 Plt Count 308 X10*3/uL (160-400) 05/07/24 Sodium 139 mmol/L (135-145) 05/07/24 Potassium 3.2 mmol/L (3.3-5.1) L 05/07/24 Chloride 104 mmol/L (96-108) 05/07/24 Carbon Dioxide 28 mmol/L (22-29) 05/07/24 BUN 37 mg/dL (9-16) H 05/07/24 Creatinine 1.65 mg/dL (0.5-1.4) H 05/07/24 Assessment & Plan Assessment & Plan (1) Diabetic nephropathy associated with type 2 diabetes mellitus: Code(s): E11.21 - Type 2 diabetes mellitus with diabetic nephropathy Category: Medical (2) CVA, old, hemiparesis: Code(s): I69.359 - Hemiplegia and hemiparesis following cerebral infarction affecting unspecified side Category: Medical (3) Hypertension: Code(s): I10 - Essential (primary) hypertension Category: Medical Qualifiers: Hypertension type: primary hypertension Qualified Code(s): I10 - Essential (primary) hypertension (4) CKD (chronic kidney disease) stage 3, GFR 30-59 ml/min: Code(s): N18.30 - Chronic kidney disease, stage 3 unspecified Category: Medical Qualifiers: Chronic kidney disease stage 3 subtype: stage 3b (GFR 30-44) Qualified Code(s): N18.32 - Chronic kidney disease, stage 3b (5) Hypokalemia: Code(s): E87.6 - Hypokalemia Category: Medical Plan Deonna has longstanding chronic kidney disease and hypertension. She has history of CVA with residual hemiparesis. Her blood pressure control is optimal. Her blood sugars are better. Her serum potassium has been low. I started her on KCl 10 MEq for 10 days. She does not have any orthostatic symptoms. She is on Jardiance 10 mg daily. She should maintain good hydration, increase activity, keep a low-sodium diet and avoid nonsteroidal anti-inflammatory medications. No PROCESSOR HELPER issues now except for her residual weakness from her CVA. I did not make any other changes today. All questions were answered Orders: Orders Creatinine 2 Months E11.21 - Type 2 diabetes mellitus with diabetic nephropathy, E87.6 - Hypokalemia, I10 - Essential (primary) hypertension, N18.32 - Chronic kidney disease, stage 3b Blood Urea Nitrogen 2 Months E11.21 - Type 2 diabetes mellitus with diabetic nephropathy, E87.6 - Hypokalemia, I10 - Essential (primary) hypertension, N18.32 - Chronic kidney disease, stage 3b Electrolytes 2 Months E11.21 - Type 2 diabetes mellitus with diabetic nephropathy, E87.6 - Hypokalemia, I10 - Essential (primary) hypertension, N18.32 - Chronic kidney disease, stage 3b Medications: New spironolactone 25 mg PO DAILY 90 tabs 4RF potassium chloride ER 10 mEq PO DAILY 10 tabs 0RF Coding Level of Care Code Est Pt Level 4 (59125) Diagnoses Diabetic nephropathy associated with type 2 diabetes mellitus E11.21 CVA, old, hemiparesis I69.359 Primary hypertension I10 Hypertension type: primary hypertension Stage 3b chronic kidney disease N18.32 Chronic kidney disease stage 3 subtype: stage 3b (GFR 30-44) Hypokalemia E87.6
[2024-05-08 11:57] VITALS: BP 150/100; BMI 24.1
== END 2024-05-08 12:15 | disposition home or self-care (01) ==
PROVIDERS: PCP Internal Medicine; Visit Provider Internal Medicine Nephrology
DX: E11.21 Type 2 diabetes mellitus with diabetic nephropathy (principal); I69.359 Hemiplegia and hemiparesis following cerebral infarction affecting unspecified side; I10 Essential (primary) hypertension; N18.32 Chronic kidney disease, stage 3b; E87.6 Hypokalemia
CPT/HCPCS: 99214

== ENCOUNTER → 2024-05-08 11:04 | Outpatient (BNVA) | payer OTHER, SELFPAY | PROVIDERS: PCP Internal Medicine; Visit Provider Internal Medicine Nephrology | DX: E11.22 Type 2 diabetes mellitus with diabetic chronic kidney disease (principal); E11.21 Type 2 diabetes mellitus with diabetic nephropathy; I12.9 Hypertensive chronic kidney disease with stage 1 through stage 4 chronic kidney disease, or unspecified chronic kidney disease; I69.359 Hemiplegia and hemiparesis following cerebral infarction affecting unspecified side; N18.32 Chronic kidney disease, stage 3b; E87.6 Hypokalemia | CPT/HCPCS: 99212 ==

== ENCOUNTER 2024-07-01 10:08 | Outpatient (REF) | payer OTHER, SELFPAY ==
--- OUTSIDE RECORDS SUMMARY | 2024-07-01 11:51 | XMS_ITS | Encounter Summary ---
Author Organization [facility] Address [address] [place] [address] Care Team Providers Care Executive Legal Secretary Name Role Phone Tegan Driscoll MD Primary Care Prov ider Reason for Visit * Reason Comments Follow-up Nail trimming Encounter Details Date Type Department Care Team ([facility] st Contact Info) Description 06/30/2024 8:30 AM EDT Office Visit Orthopedic Surgery [facility] [address] [phone] Adarsh Escalante, DPM [address] [phone] Tendinitis of left ankle (Primary Dx); Acquired hammer toe of right foot; Dermatophytosis of nail; Pain in toe of right foot; Pain in toe of left foot; Diabetic mononeuropathy simplex (CMS/HCC); Type II diabetes mellitus with peripheral circulatory disorder (CMS/HCC); Peripheral venous insufficiency Social History Tobacco Use Types Packs/Day Years Used Date Smoking Tobacco: Never Smokeless Tobacco: Never Alcohol Use Standard Drinks/Week Comments No 0 (1 standard drink = 0.6 oz pur e alcohol) Comments No Sex and Gender Information Value Date Recorded Sex Assigned at Female 03/25/2024 10:50 AM EST Legal Sex Female 3:10 PM EST Gender Identity Female 03/25/2024 10:50 AM EST Sexual Orientation Straight 03/25/2024 10 :50 AM EST documented as of this encounter Last Filed Vital Signs Vital Sign Reading Time Taken Comments Blood Pressure - - Pulse - - Temperature - - Respiratory Rate - - Oxygen Saturation - - Inhaled Oxygen Concentration - - Weight 57.6 kg (127 lb) 06/30/2024 8:42 AM EDT Height 157.5 cm (5' 2.01 ) 06/30/2024 8:42 AM ED T Body Mass Index 23.22 06/30/2024 8:42 AM EDT documented in this encounter Ordered Prescriptions Prescription Sig Dispense Quantity Refills Last Filled Start Date End Date diclofenac (Voltaren Arthritis Pain) 1 % topical gel Apply 4 g topically 2 (two) times a day. 240 g 1 06/30/2024 documented in this encounter Progress Notes * Adarsh Escalante DPM - 06/30/2024 8:30 AM EDT Last PCP visit:Referring MD: Last PCP visit Dr. Gisel williamson MD S Presents today for worsening numbness burning tingling of her left lower extremity patient suffers from worsening neuropathy neuritis from diabetes she has been lost to follow-up and has not followedup as instructed last seen a year and a half ago and has been noncompliant with her consistent follow-up appointments notes her nails elongated painful and thickened notes that her swelling of both lower extremities patient reports she is getting a lot of throbbing achy pain in the arch of her leftfoot she states is relatively new has been going for last month she states that it hurts her when she walks for long peers of time when she flexes toes down too hard denies trauma to the area pain laura 5 out of 10 on a visual analog scale ROS: GENERAL: Pt denies nausea, fever, vomiting, chills, or shortness of breath. Pt in NAD. CARDIOLOGY: pt denies chest pain, palpitations LUNGS: pt denies shortness of breath MUSCULOSKELETAL: See HPI, otherwise no joint pain or swelling, back pain, or muscle pain. SKIN: see HPI, otherwise no lesions, rash or itching NEURO: No persistent headache, weakness or numbness The remainder of the review of systems is noncontributory PAST MEDICAL HISTORY: Patient Active Problem List Diagnosis Abnormal echocardiogram Abnormal EKG Cerebrovascular accident (CVA) involving right middle cerebral artery territory ([facility]) Chest pain CKD (chronic kidney disease), stage III ([facility]) Constipation Diabetes mellitus type 2 with peripheral artery disease ([facility]) 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 ([facility]) Essential hypertension, benign GERD (gastroesophageal reflux disease) Gout Hemiparesis affecting left side as late effect of cerebrovascular accident (CVA) ([facility]) Hyperlipidemia Hyperparathyroidism due to renal insufficiency ([facility]) Hypokalemia Low back pain Microalbuminuria Murmur, cardiac ROSEANNA (obstructive sleep apnea) Osteoarthritis of spine with radiculopathy, lumbar region Osteopenia Papilledema Peripheral artery disease ([facility]) Rheumatoid factor positive Tear, knee, medial meniscus Type 2 diabetes mellitus with renal manifestations ([facility]) Vitamin D deficiency Hypertensive renal disease Hypertension History of COVID-19 Diabetes mellitus ([facility]) SOCIAL HISTORY: Social History Tobacco Use Smoking status: Never Smokeless tobacco: Never Substance Use Topics Alcohol use: No ACTIVE MEDICATIONS: No outpatient medications have been marked as taking for the 06/30/24 encounter (Office Visit) with Adarsh Escalante DPM. ALLERGIES: Allergies Allergen Reactions Chlorthalidone Other Low potassium Other reaction(s): OTHER, Other (see comments) Low potassium Low potassium Iodinated Contrast Media Swelling Latex Loratadine Other reaction(s): Other (see comments) Oxycodone Penicillins Other reaction(s): itching, Other (see comments) patient tolerates piperacillin/tazobactam PHYSICAL EXAM: Visit Vitals Ht 1.575 m (62.01 ) Wt 57.6 kg (127 lb) BMI 23.22 kg/m?? OB Status Postmenopausal Smoking Status Never BSA 1.58 m?? PODIATRIC EXAMINATION: GENERAL: Patient appears well nourished, with NAD. VASCULAR: Dorsalis pedis pulses are 0/4 bilaterally and Posterior tibial pulses are 0/4 bilaterally. Capillary filling time within normal limits the digits. No pallor on elevation or rubor on dependency. Positive hair growth. +3 pitting edema varicosities. Denies rest pain or claudication pain. NEUROLOGICAL: Sharp/dull sensation intact, protective sensation 7/10 with 5.07 semmes amelia bilaterally, vibratory sensation with tuning fork intact to the tibial tuberosity. ORTHOPEDIC: Good muscle strength 5/5 of all flexors and extensors. Dorsi flexion of ankle ,10 degrees, plantar flexion WNL. No muscle atrophy. Pain localized to the medial arch of the left flexor tendons mid arch without acute muscle deficitsdeep to the medial band of the fascial ligament left foot DERMATOLOGICAL:. Toenails: Left Toenail(s) 1-5: Crumbling upon debridement, subungual debris, discoloration, dystrophy, elongation, mycotic appearance, onychomycosis, pain and thickening. Right Toenail(s) 1-5: Crumbling upon debridement, subungual debris, discoloration, dystrophy, elongation, mycotic appearance, onychomycosis, pain and thickening. Annular scaling bilateral feet moccasin distribution Skin thinning texture shiny appearance diffuse hyperpigmentation bilaterally pedal hair decreased BIOMECHANICS: Ankle ROM WNL, STJ ROM wnl, MTJ ROM wnl, 1st MPJ ROM wnl. IMAGING: IMPRESSION: 1. Tendinitis of left ankle 2. Acquired hammer toe of right foot 3. Dermatophytosis of nail 4. Pain in toe of right foot 5. Pain in toe of left foot 6. Diabetic mononeuropathy simplex (CMS/HCC) 7. Type II diabetes mellitus with peripheral circulatory disorder (CMS/HCC) 8. Peripheral venous insufficiency PLAN: Pt was seen and examined, history reviewed. Discussed with patient that her radiating pain is likely secondary to diabetic neuropathy Further workup including spinal x-rays and EMG/NCV study were offered patient declined Discussed with patient regarding proper glucose control, exercise, and diet. Explained to patient proper shoe gear, and importance of daily foot checks. Inflammation of the tendons of the left foot discussed and reviewed Continue with orthotics and insoles discussed with further adjustments Voltaren gel prescribed New prescription for diabetic shoes sent to pharmacy I reviewed neuropathy and why it occurs in diabetics. I educated the patient on proper blood sugar control and the importance of an HgBA1c of less than 7.0%. I reviewed the signs and symptoms of neuropathy with the patient Pt to return for another evaluation in 1-3 months. Debridement of mycotic toenails 6-10: Verbal informed consent was obtained from the patient. Greater than 6 nails were aseptically debrided in thickness and length with nail nippers Adarsh Escalante DPM documented in this encounter Plan of Treatment Upcoming Encounters Date Type Department Care Team (Late st Contact Info) Description 07/07/2024 10:40 AM EDT Office Visit [facility] Cardiology [facility] [address] [place] [address] Laurita Hernandez NP [address] [place] [address] 08/01/2024 12:00 PM EDT Ancillary Procedure [facility] Cardiology [facility] [address] [place] [address] 08/04/2024 2:15 PM EDT Ancillary Procedure [facility] Cardiology [facility] [address] [place] [address] 09/01/2024 9:00 AM EDT Office Visit Orthopedic Surgery - [place] [address] [facility] [address] [place] [address] Adarsh Escalante, DPM [address] [facility] [address] [place] [address] 09/11/2024 9:30 AM EDT Office Visit Vascular Surgery - [place] [address] [place] [address] Portia Jamison PA [address] [place] [address] 11/21/2024 2:10 PM EDT Appointment Radiology Department - [address] [phone] documented as of this encounter Visit Diagnoses Diagnosis Tendinitis of left ankle- Primary Acquired hammer toe of right foot Dermatophytosis of nail Pain in toe of right foot Pain in soft tissues of limb Pain in toe of left foot Pain in soft tissues of limb Diabetic mononeuropathy simplex (CMS/HCC) Type II or unspecified type diabetes mellitus with neurological manifestations, not stated as uncontrolled Type II diabetes mellitus with peripheral circulatory disorder ([facility]) Type II or unspecified type diabetes mellitus with peripheral circulatory disorders, not stated as uncontrolled Peripheral venous insufficiency Unspecified venous (peripheral) insufficiency Encounter for screening mammogram for breast cancer documented in this encounter Care Teams Executive Legal Secretary Relationship Specialty Start Date End Date Tegan Driscoll MD [address] [place] [phone] PCP - General Internal Medicine 11/01/21 documented as of this encounter
--- OUTSIDE RECORDS SUMMARY | 2024-07-01 11:51 | XMS_ITS | Clinical Summary ---
Author Organization [facility] Address [address] [facility] [address] [place] [address] Phone Care Team Providers Care Table Machine Operator Name Role Phone Marissa Bray CNP Primary Care Provider [phone] Allergies Active Allergy Reactions Criticality Noted Date [...] a day 1 Active Deep Sea Nasal [place] 0.65 % nasal spray Administer 1 spray [...] Peripheral vascular disease 08/06/2018 08/20/2020 Overview (05/24/2020): [facility] Cardio Abnormal echocardiogram 06/12/201808/01 Obstructive sleep apnea syndrome 02/11/2016 08/20/2020 Overview (05/24/2020): [facility] ([facility]). Compliant with CPAP Hemiparesis as late effect o f cerebrovascular accident 07/21/2015 08/20/2020 Right sided cerebral hemisph ere cerebrovascular accident 07/20/2015 08/20/2020 Tear of medial meniscus of knee 11/10/2014 08/20/2020 Papilledema 02/06/2014 08/20/2020 Hyperparathyroidism 12/16/2013 08/21/19 Chest pain 09/29/2013 08/20/2020 Overview (05/24/2020): Negative Regadenoson stress test [facility] Cardiology 08/2013 Type 2 diabetes mellitus 12/26/2012 Overview (05/24/2020): Last Assessment & Plan: Better control of diabetes. Continue current regimen. See diabetes waste machine operator/educator as planned. Return in 3 months with lab tests at least 1 week before next visit. [facility] Cardio - see testing 07/31/18 - [...] this topic Insurance MCR ([id number]) [place] [id number] ([id number]) Care Teams Table Machine Operator Relationship Specialty Start Date End Date Marissa Bray CNP PCP - General Nurse Practitioner 04/18/22
--- OUTSIDE RECORDS SUMMARY | 2024-07-01 11:51 | XMS_ITS | Clinical Summary ---
Author Organization [facility] [address] [facility] Address [address] [place] [address] Phone Care Team Providers Care Tag Stringer Name Role Phone Tegan Driscoll MD Primary Care Prov ider Allergies Active Allergy Reactions Criticality Noted Date Comments Chlorthalidone Other 10/30/2019 Low potassium Other reaction(s): OTHER, Other (see comments) Low potassium Low potassium Iodinated Contrast Media Swelling 11/11/2010 Latex 05/03/2021 Loratadine 05/24/2020 Other reaction(s): Other (see comments) Oxycodone 05/03/2021 Penicillins 07/09/2011 Other reaction(s): itching, Other (see comments) patient tolerates piperacillin/tazobactam Medications omeprazole (PriLOSEC) [address] capsule Take 1 capsule (20 mg total) by mouth 1 (one) time each day. 4 Active rosuvastatin (CRESTOR) 40 mg tablet Take 1 tablet (40 mg total) by mouth 1 (one) time each day. 0 Active cholecalcifero l (VITAMIN D-3) 25 mcg (1,000 unit) capsule Take 1 capsule (1,000 Units total) by mouth 1 (one) time each day. 4 Active amLODIPine (NORVASC) 10 mg tablet Take 1 tablet (10 mg total) by mouth 1 (one) time each day. 4 Active clopidogreL (PLAVIX) 75 mg tablet Take 1 tablet (75 mg total) by mouth 1 (one) time each day. 6 Active insulin glargine (Lantus Solostar U-100 Insulin) 100 unit/mL (3 mL) injection pen Inject 10 Units as directed at bedtime. 3 Active diclofenac (VOLTAREN) 1 % topical gel Apply 1 g topically 3 (three) times a day. 4 Active pen needle, diabetic 32 gauge x needle USE DIRECTED FOUR TIMES DAILY 4 Active HYDROmorphone (DILAUDID) 2 mg tablet 4 Active insulin aspart (NovoLOG Flexpen U-100 Insulin) 100 unit/mL (3 mL) injection pen ADMINISTER 4 TO 12 UNITS UNDER THE SKIN THREE TIMES DAILY BEFORE MEALS 2 Active calcium carbonate 1,500 mg (600 mg elemental calcium) tablet Take 600 mg by mouth 2 (two) times a day with meals. 4 Active clotrimazole (LOTRIMIN) 1 % cream Apply to skin and toenails daily for 12 weeks 3 Active acetaminophen (TYLENOL) 500 mg tablet Take 1 tablet (500 mg total) by mouth every 6 (six) hours if needed. Active alcohol swabs pads, medicated 1 Packet by Subdermal route daily. USE FOUR TIMES DAILY 1 Active insulin syringe-needle U-100 0.5 mL 29 gauge x 1/2 syringe Inject 1 Syringe into the skin 4 times daily. 3 Active Vitamins B Complex tablet TAKE 1 TABLET BY MOUTH DAILY 90 tablet 5 Active dulaglutide (Trulicity) 0.75 mg/0.5 mL pen injector injection Inject 0.5 mL (0.75 mg total) under the skin 1 (one) time per week. 2 mL 2 5 Active FreeStyle Sarah 2 Sensor kit 1 EA. 5 Active freestyle (FreeStyle Lancets) 28 gauge lancets Use to check blood sugars 4x daily 200 each 5 Active gabapentin (NEURONTIN) 100 mg capsule Take 1 capsule (100 mg total) by mouth 1 (one) time each day if needed (nerve pain). 90 capsule 1 5 Active glucose blood test strip Use to check blood sugars 4x daily 200 each 5 06/06/19 26 Active diclofenac (Voltaren Arthritis Pain) 1 % topical gel Apply 4 g topically 2 (two) times a day. 240 g 1 5 08/30/19 25 Active FREESTYLE LANCETS MISC USE FOUR TIMES DAILY DIRECTED 3 06/06/19 25 Discontinu ed(Reorder ) glucose blood (FreeStyle Precision Leonardo Strips) test strip USE TO CHECK BLOOD SUGAR 4 TIMES A DAY. 3 06/06/19 25 Discontinu ed(Duplica te order) triamcinolone (KENALOG) 0.1 % cream Apply to affected area 1-2 times daily as needed for 2 weeks 15 g 5 06/22/19 25 gabapentin (NEURONTIN) 100 mg capsule Take 1 capsule (100 mg total) by mouth 1 (one) time each day if needed. 06/06/19 25 Discontinu ed(Reorder ) Active Problems Problem Noted Date Diagnosed Date Hypertension 06/05/2024 Diabetes mellitus 06/05/2024 Abnormal EKG 10/10/2022 Overview (01/09/2024): Last Assessment [...] Plan: She has no significant valvular disease. 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 We will continue current regimen. She had fairly significant murmur/Kaylyn in bilateral neck area which could be transmitted from LVOT murmur. We will arrange carotid ultrasound. Abnormal echocardiogram 06/12/2018 ROSEANNA (obstructive sleep apnea) 02/11/2016 Overview (01/09/2024): [facility] ([facility] 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 Continue current regimen. See diabetes wheel and pinion inspector/educator as planned. Return in 3 months with lab tests at least 1 week before next visit. 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 12/26/2012 Constipation 05/13/2012 Gout [...] Encounters Date Type Department Care Team Description 06/30/2024 8:30 AM EDT Office Visit Orthopedic Surgery - [place] [address] [place] [address] [address] [place] [phone] Adarsh Escalante, DPM Tendinitis of left ankle (Primary Dx); Acquired hammer toe of right foot; Dermatophytosis of nail; Pain in toe of right foot; Pain in toe of left foot; Diabetic mononeuropathy simplex (CMS/HCC); Type II diabetes mellitus with peripheral circulatory disorder (CMS/HCC); Peripheral venous insufficiency 06/06/2024 10:30 AM EST Consult Vascular Surgery - [place] [address] [place] [phone] Portia Jamison PA Diabetes mellitus type 2 with peripheral artery disease (CMS/HCC) (Primary Dx); Peripheral venous insufficiency; Bilateral lower extremity edema; Decreased pedal pulses 06/05/2024 8:00 AM EST Office Visit [address] [phone] Jaclyn Helms PA Skin lesions (Primary Dx); Primary hypertension 06/03/2024 Telephone Adult Medicine [address] [address] Jaclyn Helms PA Rash 04/22/2024 9:00 AM EST Office Visit Adult [address] [phone] Jaclyn Helms PA Dermatitis (Primary Dx) 04/21/2024 Telephone Adult Medicine [address] [phone] Tegan Driscoll MD Rash from Last 3 Months Immunizations Name Administration [...] PROCEDURE: HISTORICAL TUBAL LIGATION KNEE ARTHROSCOPY PROCEDURE: NH ARTHROSCOPY KNEE DIAGNOSTIC W/WO SYNOVIAL BX SPX; COMMENT: right 12/09 CHOLECYSTECTOMY PROCEDURE: HISTORICAL CHOLECYSTECTOMY Medical History Medical History Date Comments DM type 2 (diabetes mellitus , type 2) ([facility]) 11/05/2010 DX:DM type 2 (diabetes melli tus, type 2) ([facility]) Essential hypertension, benign 11/03/2010 D [...] wit h renal manifestations not at goal ([facility]) 01/27/2013 DX:Type 2 diabete s mellitus with renal manifestations not at goal ([facility]) CKD (chronic kidney disease) , stage III ([facility]) 11/19/2010 DX:CKD (chronic kidney disea se), stage III ([facility]) GERD (gastroesophageal reflux disease) 1 DX:GERD (gastroesophageal reflux disease) Osteopenia 01/17/2011 DX:Osteopenia; C OMMENT: LS T score -1.6 Rheumatoid factor positive 12/01/2011 DX:Rh eumatoid factor positive; COMMENT: No obvious synovitis as of 06/12 Gout 12/01/2011 DX:Gout; COMMENT : Hyperuricemia, recurrent lower extremity attacks, cystic change in left 1st MTP Chest pain 09/29/2013 DX:Chest pain; C OMMENT: Negative Regadenoson stress test [facility] 08/2013 Abnormal US (ultrasound) of abdomen 10/31/2013 DX:Abnormal US (ultrasound) of abdomen; COMMENT: US Piper 10/22/13 - 1.3x1.4x1.9 cm masslike thickening of [...] as late effect of cerebrovascular accident (CVA) ([facility]) Sleep apnea in adult 02/11/2016 DX:Sleep ap clair in adult; COMMENT: [facility] ([facility]). Compliant with CPAP Abnormal echocardiogram 06/12/2018 [...] Orientation Straight 03/25/2024 10 :50 AM EST Obstetrics History Para Term AB IAB SAB Ectopic Multiple Livin g Live Births 6 6 6 Date Outcome GA Total Labor Labor/2nd/3rd Weight Sex Type Anes PTL Gwen A1 A5 Name Clin Term Term Term Term Term Term Last Filed Vital Signs Vital Sign Reading Time Taken Comments Blood Pressure 189/84 06/06/2024 10:35 AM EST Pulse 79 06/06/2024 10:35 AM EST Temperature 36.8 ??C (98.2 ??F) 06/05/2024 8:15 AM ES T Respiratory Rate 16 06/05/2024 8:15 AM EST Oxygen Saturation - - Inhaled Oxygen Concentration - - Weight 57.6 kg (127 lb) 06/30/2024 8:42 AM EDT Height 157.5 cm (5' 2.01 ) 06/30/2024 8:42 AM ED T Body Mass Index 23.22 06/30/2024 8:42 AM EDT Plan of Treatment Upcoming Encounters Date Type Department Care Team (Late st Contact Info) Description 07/07/2024 10:40 AM EDT Office Visit [facility] Cardiology [facility] [address] [facility] [address] [place] [address] Laurita Hernandez NP [address] [place] [address] 08/01/2024 12:00 PM EDT Ancillary Procedure [facility] Cardiology [facility] [address] [phone] 08/04/2024 2:15 PM EDT Ancillary Procedure [facility] Cardiology [facility] [address] [phone] 09/01/2024 9:00 AM EDT Office Visit Orthopedic Surgery - [place] [address] [facility] [address] [place] [address] Adarsh Escalante, DPM [address] [facility] [address] [place] [address] 09/11/2024 9:30 AM EDT Office Visit Vascular Surgery - [place] [address] [place] [address] Portia Jamison PA [address] [place] [address] 11/21/2024 2:10 PM EDT Appointment Radiology Department [address] [phone] Health Maintenance Due Date Last Done Comments [...] Tdap) 10/18/2032 10/18/2022, 05/13/2012, 11/17/2010 Pneumococcal Vaccine: 50+ Years Completed 01/24/2017, 07/10/2015, 11/17/2010 Hepatitis C [...] patient's age to complete this topic Meningococcal B Vacine Aged Out No lo nger eligible based on patient's age to complete this topic RSV Immunization Patients Under 20 months Aged Out No longer eligible based on patient's age to complete this topic Varicella Vaccines Aged Out No longer eligible based on patient's age to complete this topic Procedures Procedure Name Priority Date/Time Associated Diagnosis Comments URINE ALBUMIN CREATININE RATIO Routine 01/07/2024 ANNUAL BMP BLOOD TEST Routine 01/07/2024 HEMOGLOBIN A1C Routine 01/07/2024 LIPID PANEL Routine 01/07/2024 DIABETES FOOT EXAM Routine 01/01/2024 FALLS RISK ASSESSMENT Routine 07/17/2023 DEPRESSION SCREENING Routine 02/12/2023 HEPATITIS C SCREENING Routine 05/18/2020 from Last 3 Months or Most Recently Relevant to Health Maintenance Results * Urine Albumin Creatinine Ratio (01/07/2024) Urine Albumin Creatinine Ratio Abstracted us Historical Provider MD HEALTH MAINTENANCE Final Result * Annual BMP Blood Test (01/07/2024) Pathologist Count includes the [facility] Annual BMP Blood Test Abstracted Result [facility] HEALTH MAINTENANCE Final Result * (ABNORMAL) Hemoglobin A1c (01/07/2024) [facility] Hemoglobin A1C 7.0(A) <=6.5 % Blood Venous blood specimen / Unknown Result [facility] LAB BLOOD ORDERABLES Ila l Result * (ABNORMAL) Lipid panel (01/07/2024) [facility] LDL/HDL Ratio 3 0 - 4 Triglycerides 152(A) 0 - 150 mg/dL Cholesterol 167 0 - 200 mg/dL HDL 59 >=40 mg/dL LDL Cholesterol 78 0 - 100 mg/dL Blood Venous blood specimen / Unknown Result [facility] LAB BLOOD ORDERABLES Ila l Result * Diabetes Foot Exam (01/01/2024) [facility] Diabetes: Annual Foot Exam Abstracted Result [facility] HEALTH MAINTENANCE Final Result * Falls Risk Assessment (07/17/2023) [facility] Falls Risk Assessment Abstracted Result [facility] HEALTH MAINTENANCE Final Result * Depression Screening (02/12/2023) [facility] Depression Screening Abstracted Result [facility] HEALTH MAINTENANCE Final Result * Hepatitis C Screening (05/18/2020) [facility] Hepatitis C Screening Abstracted Result [facility] HEALTH MAINTENANCE Final Result from Last 3 Months or Most Recently Relevant to Health Maintenance Insurance [facility] [place]ICAID [place] [id number] Care Teams Tag Stringer Relationship Specialty Start Date End Date Tegan Driscoll MD [address] [place] [id number] PCP - General Internal Medicine 11/01/21
--- OUTSIDE RECORDS SUMMARY | 2024-07-01 11:51 | XMS_ITS | Clinical Summary ---
Author Organization [facility] Address [address] [place] [address] Care Team Providers Care Gauger Chief Delivery Name Role Phone Tegan Johnson MD Primary [...] age to complete this topic Care Teams Gauger Chief Delivery Relationship Specialty Start Date End Date Tegan Johnson MD [address] [place] [address] PCP - General Internal Medicine 07/31/23
[2024-07-01 18:55] LABS: Anion Gap 15 (12-20); Blood Urea Nitrogen 41 mg/dL (9-16); Carbon Dioxide 25 mmol/L (22-29); Chloride 105 mmol/L (96-108); Estimated Glomerular Filt Rate 29; Potassium 3.6 mmol/L (3.3-5.1); Sodium 141 mmol/L (135-145)
== END 2024-07-01 10:09 | disposition home or self-care (01) ==
LOC: HO.HKASLDS 10:08
PROVIDERS: Visit Provider Internal Medicine Nephrology
DX: I12.9 Hypertensive chronic kidney disease with stage 1 through stage 4 chronic kidney disease, or unspecified chronic kidney disease (principal); E11.21 Type 2 diabetes mellitus with diabetic nephropathy; N18.32 Chronic kidney disease, stage 3b; E87.6 Hypokalemia
CPT/HCPCS: 36415; 80051; 82565; 84520

== ENCOUNTER 2024-07-10 09:47 | Outpatient (AMB) | payer OTHER, SELFPAY ==
--- NOTE | 2024-07-10 10:01 | HO.NEPHOV_ITS ---
Vital Signs 07/10/24 10:02 Height 5 ft 1 in Weight 126 lb 4 oz BMI 23.9 BP 130/58 L Blood Pressure Location Lt brachial Position Sitting Pulse 84 Pulse Source Pulse Oximeter Pulse Oximetry (%) 99 Oxygen Delivery Method Room Air Intake Visit Reasons: 2 mnts f/u Fire Sprinkler Installer Required: No Mid Teacher: Mid Teacher Present (Daughter) Accompanied by: Daughter Allergies Penicillins Allergy (Verified 07/10/24 10:04) Unknown Do you need a note to return to daycare/school/sports/work: No HPI Comments Details: Deonna was accompanied by her daughter in follow-up for chronic kidney disease and hypertension.She had CVA in the past without residual left side weakness. She denies any headache, visual disturbances, new weakness, chest pain, shortness of breath, proximal nocturnal dyspnea, orthopnea, pedal edema or urinary symptoms. She denies taking nonsteroidal anti-inflammatory medications. Her blood sugar control has been good. Her blood pressure control has been at goal at home. She still is on Plavix. She maintains good hydration [facility] Medical History Hyperlipidemia Renal cell cancer Stroke Chronic kidney disease Essential (primary) hypertension Surgical History History of cholecystectomy History of nephrectomy History of kidney surgery History of knee surgery History of cataract surgery Family History Daughter Hypertension Son Hypertension Social History Alcohol intake: never Patient Tobacco Use Status: Never used Tobacco Review of Systems Const All systems reviewed & are unremarkable except as noted in HPI and below Physical Exam Vital Signs: Last Vital Signs Pulse 84 07/10/24 10:02 BP 130/58 L 07/10/24 10:02 Pulse Ox 99 07/10/24 10:02 Oxygen Delivery Method Room Air 07/10/24 10:02 BMI result Body Mass Index 23.9 Const General: comfortable and no acute distress Orientation/consciousness: patient oriented x3 HEENT Head: Yes normocephalic Mouth: Normal oral and palatal mucosa present Eyes EOM: EOMs intact bilaterally Neck Neck: Yes supple Resp Auscultation: clear to auscultation bilaterally Cardio Jugular venous distension: no JVD Rate: regular rate GI Palpation (GI): Soft to palpation Auscultation: normal bowel sounds General: Yes no CVA tenderness Back/Spine/Pelvis Back: no CVA tenderness Skin General skin exam: no rashes or lesions noted Neuro General: patient oriented x3 and moves all extremities Extrem General: Yes no pedal edema Results Reviewed Nephrology Results: Sodium 141 mmol/L (135-145) 07/01/24 Potassium 3.6 mmol/L (3.3-5.1) 07/01/24 Chloride 105 mmol/L (96-108) 07/01/24 Carbon Dioxide 25 mmol/L (22-29) 07/01/24 BUN 41 mg/dL (9-16) H 07/01/24 Creatinine 1.69 mg/dL (0.5-1.4) H 07/01/24 Assessment & Plan Assessment & Plan (1) Diabetic nephropathy associated with type 2 diabetes mellitus: Code(s): E11.21 - Type 2 diabetes mellitus with diabetic nephropathy Category: Medical (2) CVA, old, hemiparesis: Code(s): I69.359 - Hemiplegia and hemiparesis following cerebral infarction affecting unspecified side Category: Medical (3) Hypertension: Code(s): I10 - Essential (primary) hypertension Category: Medical Qualifiers: Hypertension type: primary hypertension Qualified Code(s): I10 - Essential (primary) hypertension (4) CKD (chronic kidney disease) stage 3, GFR 30-59 ml/min: Code(s): N18.30 - Chronic kidney disease, stage 3 unspecified Category: Medical Qualifiers: Chronic kidney disease stage 3 subtype: stage 3b (GFR 30-44) Qualified Code(s): N18.32 - Chronic kidney disease, stage 3b Freddy Ying has longstanding chronic kidney disease and hypertension. She has history of CVA with residual hemiparesis. Her blood pressure control is optimal. Her blood sugars are better. She does not have any orthostatic symptoms. She is on Jardiance 10 mg daily. She should maintain good hydration, increase activity, keep a low-sodium diet and avoid nonsteroidal anti-inflammatory medications. No LOGISTICS SYSTEM ENGINEER issues now except for her residual weakness from her CVA. I did not make any other changes today. All questions were answered Orders: Orders Blood Urea Nitrogen 4 Months E11.21 - Type 2 diabetes mellitus with diabetic nephropathy, I10 - Essential (primary) hypertension, N18.32 - Chronic kidney disease, stage 3b Calcium 4 Months E11.21 - Type 2 diabetes mellitus with diabetic nephropathy, I10 - Essential (primary) hypertension, N18.32 - Chronic kidney disease, stage 3b Creatinine 4 Months E11.21 - Type 2 diabetes mellitus with diabetic nephropathy, I10 - Essential (primary) hypertension, N18.32 - Chronic kidney disease, stage 3b Electrolytes 4 Months E11.21 - Type 2 diabetes mellitus with diabetic ne phropathy, I10 - Essential (primary) hypertension, N18.32 - Chronic kidney disease, stage 3b Coding Level of Care Code Est Pt Level 4 (53102) Diagnoses Diabetic nephropathy associated with type 2 diabetes mellitus E11.21 CVA, old, hemiparesis I69.359 Primary hypertension I10 Hypertension type: primary hypertension Stage 3b chronic kidney disease N18.32 Chronic kidney disease stage 3 subtype: stage 3b (GFR 30-44)
[2024-07-10 10:02] VITALS: BP 130/58; PULSE 84; O2SAT 99; BMI 23.9
--- OUTSIDE RECORDS SUMMARY | 2024-07-10 11:04 | XMS_ITS | Clinical Summary ---
Author Organization [facility] Address [address] [place] [address] Care Team Providers Care Cloth Cutting Machine Operator Name Role Phone Tegan Johnson MD Primary [...] age to complete this topic Care Teams Cloth Cutting Machine Operator Relationship Specialty Start Date End Date Tegan Johnson MD [address] [place] [address] PCP - General Internal Medicine 07/31/23
--- OUTSIDE RECORDS SUMMARY | 2024-07-10 11:04 | XMS_ITS | Data Portability ---
Author Organization [employer] [facility], [facility] Address [address] [place] [phone] Care Team Providers Care Make Up Girl Name Role Phone HIM CCA OTHER Assessment Encounter Date Assessment Date Assessment LastModified by Organization Details LastModified Time 07/03/2024 07/03/2024 I provided real -time medical direction via phone for this encounter, and was available for additional phone based assistance as needed. I have reviewed and agree with the Assessment and Plan as documented by the Cdl Driver. We discussed the diagnostic uncertainty of home visits and the risk associated with this. In this case the patient and I felt this to be an acceptable and reasonable amount of risk given the benefit of avoiding an ED visit. The patient given the opportunity to ask questions. Advised if develops N/V, AMS/ syncope, family verbalized understanding of instructions [email or web address] Not available 07/03/2024 17:38:15 Plan of Treatment Reminders Order Date Submit Date Provider Last Modified By Organization Details Last Modified Time Details Appointments None recorde d. Lab glucose , fingers tick, blood 025 07/04/19 25 [email or web address] [facility], [address] [place] [address], [phone] 17:26:39 Referral None recorde d. Procedures None recorde d. Surgeries None recorde d. Imaging None recorde d. Medication Orders None recorde d. Patient TargetsNo targets recorded. Patient InstructionsNo instructions recorded. Reason for Referral None Reported. Results Created Date Observation Date Name Description Value Unit Range Abnormal Flag Note LastModifiedBy Organization Detail LastModifiedTime 07/04/1907/03/2024 gluco sejoyce k, blood Blood Glucose: mg/dl 215 Not Available [address], [phone] 07/03/2024 17:25:41 Result Notes None recorded. Medical Equipment None Reported. Allergies No known drug allergies Medications Name Sig Start Date Stop Date Status Note LastModified by Organization Details LastModified Time carvedilol 6.25 mg tablet TAKE 1 TABLET BY MOUTH TWICE DAILY MUST ADMINISTER WITH A MEAL/FOOD active Not Available Not Available No t Available FreeStyle Lancets 28 gauge USE FOUR TIMES DAILY DIRECTED. active Not Available Not Available No t Available potassium chloride ER 10 mEq tablet,exten ded release TAKE 1 TABLET BY MOUTH DAILY active Not Available Not Available Not Available clopidogrel 75 mg tablet TAKE 1 TABLET BY MOUTH DAILY active Not Available Not Available Not Available amlodipine 5 mg tablet TAKE 1 TABLET BY MOUTH DAILY active Not Available Not Available Not Available acetaminophe n 500 mg tablet TAKE 2 TABLETS BY MOUTH EVERY 8 HOURS active Not Available Not Available No t Available triamcinolon e acetonide 0.1 % topical cream APPLY TOPICALLY TO THE AFFECTED AREA 1 TO 2 TIMES DAILY FOR 2 WEEKS NEEDED active Not Available Not Available No t Available spironolacto ne 25 mg tablet TAKE 1 TABLET BY MOUTH DAILY active Not Available Not Available Not Available Vitamins B Complex tablet TAKE 1 TABLET BY MOUTH DAILY active Not Available Not Available Not Available amlodipine 10 mg tablet TAKE 1 TABLET BY MOUTH DAILY active Not Available Not Available Not Available gabapentin 300 mg capsule TAKE 1 CAPSULE BY MOUTH AT BEDTIME NEEDED FOR PAIN active Not Available Not Available No t Available omeprazole 20 mg capsule,douglas yed release TAKE 1 CAPSULE BY MOUTH DAILY active Not Available Not Available Not Available montelukast 10 mg tablet TAKE 1 TABLET BY MOUTH AT BEDTIME active Not Available Not Available No t Available gabapentin 100 mg capsule TAKE 2 CAPSULES BY MOUTH AT BEDTIME active Not Available Not Available No t Available nifedipine ER 60 mg tablet,exten ded release TAKE 2 TABLETS BY MOUTH DAILY active Not Available Not Available Not Available cholecalcife rol (vitamin D3) 25 mcg (1,000 unit) capsule TAKE 1 CAPSULE BY MOUTH DAILY active Not Available Not Available Not Available insulin aspart (U-100) 100 unit/mL (3 mL) subcutaneous pen ADMINISTER 4-12 UNITS UNDER THE SKIN THREE TIMES DAILY BEFORE MEALS active Not Available Not Available No t Available rosuvastatin 40 mg tablet TAKE 1 TABLET BY MOUTH DAILY active Not Available Not Available Not Available FreeStyle Lite Strips USE TO MONITOR BLOOD GLUCOSE DIRECTED FOUR TIMES DAILY active Not Available Not Available No t Available Lantus Solostar U-100 Insulin 100 unit/mL (3 mL) subcutaneous pen INJECT 10 UNITS UNDER THE SKIN EVERY NIGHT AT BEDTIME active Not Available Not Available N ot Available diclofenac 1 % topical gel APPLY 4 GRAMS TOPICALLY TO THE AFFECTED AREA TWICE DAILY active Not Available Not Available No t Available Jardiance 10 mg tablet TAKE 1 TABLET BY MOUTH DAILY active Not Available Not Available Not Available Trulicity 0.75 mg/0.5 mL subcutaneous pen injector ADMINISTER 0.75 MG UNDER THE SKIN 1 TIME EVERY WEEK active Not Available Not Available N ot Available BD Skylar 2nd Gen Pen Needle 32 gauge x 5/32 USE DIRECTED TO INJECT INSULIN 4 TIMES A DAY. active Not Available Not Available No t Available FreeStyle Sarah 2 Sensor kit USE DIRECTED AND CHANGE EVERY 14 DAYS. active Not Available Not Available No t Available FreeStyle Sarah 2 [place] USE DIRECTED active Not Available Not Available No t Available Vitals Date Recorded Body temperature Respiratory rate Heart rate Oxygen saturation Oxygen saturation in Arterial blood by Pulse oximetry Systolic blood pressure Diastolic blood pressure Provider Name and Address Organization Details Last Updated DateTime 5 97.9 [degF] 16 /min 78 /min 99 % 99 % 154 mm[Hg] 78 mm[Hg] Not Available [facility] - production 5 17:15:15 Social History None recorded. Functional Status None recorded. Mental Status None recorded. Family History Nothing Reported. Medical History No medical history recorded. Gynecological HistoryNo gynecological history recorded. Obstetrics History GPAL:G 0 P 0 0 0 0 Past Encounters Encounter ID Performer Location Encounter Start Date Encounter Closed Date Diagnosis/Indication Diagnosis SNOMED-CT Code Diagnosis ICD10 Code Diagnosis Note [id number] BRIE MADDEN NP, [address] [facility] [address] [place] [phone] 07/03/2024 17:15:13 07/03/2024 18:11:05 Hypoglycemia due to type 2 diabetes mellitus [id number] E11.649 Z79.4 Family denies any changes in insulin dosing or medication s, diet has been the same with normal appetite. No N/V/D. No recent infections . Advised to provide a hearty snack before bed tonite and continue to monitor and record glucose levels. Did not adjust Lantus dose as glucose currently elevated to 215. Advised to notify Endocrine for f/u appt. Reviewed ED precaution s, if patient because confused, lethargic or unresponsi ve call 911. Health Concerns Section Related Observation LastModified by Organization Detai ls LastModified Time None Recorded Concern Status LastModified by Organization Details LastModified Time None Recorded Advance Directives Directive None Recorded Payers Encounter Date Sequence Insurance Name Policy Number Policy Frederick Covered Member ID Frederick Member ID Guarantor Name 07/03/2024 1 [facility] - DOS ON OR AFTER 2022 - DUAL ELIGIBLE - INTERMEDIATE OPTIONS AND ONE CARE (MEDICARE REPLACEMENT/ADV ANTAGE - HMO) Denona Escobar [id number] Deonna Escobar Notes Date Note Type Note Provider Name and Address Organization Details Recorded Time 07/03/2024 text/html [facility] Nurse Triage Notes (Laura Mcdonald): Reason For Request: pt has low blood sugar Patient Reports: Difficult to control blood sugarsDenies: Elevated blood sugar over 500 Acute Cardiac pain Nausea/Vomiting greater than 8 hours Decreased LOC and lethargy Fever unable to tolerate oral fluids or foods Cold/Flu-like symptoms Decreased oral intake Chief Complaints: Diabetes RelatedPMH: Diabetes Mellitus Type 2, Hypertension, Rheumatoid Arthritis, Osteoporosis, CancerPMH Reviewed at 07/03/2024 - :Allergies Reviewed at 07/03/2024 - :Comments:Writ er verified the name//address and phone number. Pt blood sugar 50s -65 since 030. She has been concerned . She is eating and drinking. She is eating when the blood sugars are low, and it will go up to 69 and drop again. She is usually 120-200. She does not have any dizziness, or polyuria or polydipsia, no weakness , no changes in her gait. No changes in her meds. Rechecked the BS now, 113 . She does have a mild PRUETT when BS is low.Education provided on the response time and the Patient was advised to monitor reported s/s and seek emergency treatment if need Cdl Driver Organization Information for [facility] Legal Name: [employer] Address: [address] [place] [address] [place] [id number], Camp Assistant: Lico Espinosa MD CLIA No.: [id number] Cdl Driver POC Test Results from [facility] Blood Glucose Measurement (17:25:07) Blood Glucose: 215 mg/dL .................. .................. .................. .................. .................. .................. .................. ............... Cdl Driver Note From [facility]: Dispatched to above address for hypoglycemia. On arrival patients daughter met SC8 at the door, reports patient began c/o a mild headache yesterday which has since resolved without intervention, last night patient and family were alerted by patients dexcom that patients BGL was dropping, patient was given food and orange juice without significant change in BGL, lowest was 59mg/dl, they have been closely monitoring all day, last check about 1hr ago was 113mg/dl. Patient 78 y/o F, found sitting on couch, AOX4, airway patent, speaking in full sentences, good color, in no apparent distress. Patient Georgian speaking only, daughter translating. Patient states she feels fine has no complaints. Patients vital signs checked. Patients BGL checked, 215mg/dl, dexcom rechecked, 212mg/dl. Secondary assessment, pupils PERRL, airway patent, no JVD, trachea midline, equal chest rise and fall, lungs clear all mari, abdomen soft non tender, no signs of trauma, good radial pulse, skin pink warm and dry. [facility] contacted, spoke with YARD CLEANER Brie Madden, advised of patient complaints and exam findings. [facility] recommends close monitoring at home, ensure patient eats a hearty snack before bed and follow up with cloth cutter. Patient and family agree with this plan. Patient and family have no additional questions or concerns at this time. SC8 clear. EOR. [facility] Lab Orders: glucose, fingerstick, blood: Performed .................. .................. .................. .................. .................. .................. .................. ............... [facility] Consulted: Brie Madden .................. .................. .................. .................. .................. .................. .................. ............... Disposition: Fulfilled BRIE MADDEN NP, [address] [facility],[address], [place], [phone], [employer] 07/03/2024 18:11:03 OBGyn Episode No OBEpisode recorded.
--- OUTSIDE RECORDS SUMMARY | 2024-07-10 11:04 | XMS_ITS | Clinical Summary ---
Author Organization [facility] [address] [facility] Address [address] [place] [address] Phone Care Team Providers Care Bow Stapler Name Role Phone Tegan Driscoll MD Primary [...] by mouth 1 (one) time each day. 08/21/19 24 Active rosuvastatin (CRESTOR) 40 mg tablet Take 1 tablet (40 mg total) by mouth 1 (one) time each day. 04/01/20 20 Active cholecalcifero l (VITAMIN D-3) 25 mcg (1,000 unit) capsule Take 1 capsule (1,000 Units total) by mouth 1 (one) time each day. 07/17/19 24 Active amLODIPine (NORVASC) 10 mg tablet Take 1 tablet (10 mg total) by mouth 1 (one) time each day. 09/28/19 24 Active clopidogreL (PLAVIX) 75 mg tablet Take 1 tablet (75 mg total) by mouth 1 (one) time each day. 06/11/19 16 Active insulin glargine (Lantus Solostar U-100 Insulin) 100 unit/mL (3 mL) injection pen Inject 10 Units as directed at bedtime. 07/11/19 23 Active diclofenac (VOLTAREN) 1 % topical gel Apply 1 g topically 3 (three) times a day. 10/16/19 24 Active pen needle, diabetic 32 gauge x 5/32 needle USE DIRECTED FOUR TIMES DAILY 10/08/19 24 Active insulin aspart (NovoLOG Flexpen U-100 Insulin) 100 unit/mL (3 mL) injection pen ADMINISTER 4 TO 12 UNITS UNDER THE SKIN THREE TIMES DAILY BEFORE MEALS 12/17/19 22 Active calcium carbonate 1,500 mg (600 mg elemental calcium) tablet Take 600 mg by mouth 2 (two) times a day with meals. 07/17/19 24 Active clotrimazole (LOTRIMIN) 1 % cream Apply to skin and toenails daily for 12 weeks 06/22/19 23 Active acetaminophen (TYLENOL) 500 mg tablet Take 1 tablet (500 mg total) by mouth every 6 (six) hours if needed. Active alcohol swabs pads, medicated 1 Packet by Subdermal route daily. USE FOUR TIMES DAILY 09/07/19 21 Active insulin syringe-needle U-100 0.5 mL 29 gauge x 1/2 syringe Inject 1 Syringe into the skin 4 times daily. 03/13/20 13 Active dulaglutide (Trulicity) 0.75 mg/0.5 mL pen injector injection Inject 0.5 mL (0.75 mg total) under the skin 1 (one) time per week. 2 mL 2 04/24/19 25 Active FreeStyle Sarah 2 Sensor kit 1 EA. 04/26/19 25 Active freestyle (FreeStyle Lancets) 28 gauge lancets Use to check blood sugars 4x daily 200 each 06/06/19 25 Active gabapentin (NEURONTIN) 100 mg capsule Take 1 capsule (100 mg total) by mouth 1 (one) time each day if needed (nerve pain). 90 capsule 1 06/06/19 25 Active glucose blood test strip Use to check blood sugars 4x daily 200 each 06/06/19 25 026 Active diclofenac (Voltaren Arthritis Pain) 1 % topical gel Apply 4 g topically 2 (two) times a day. 240 g 1 07/01/19 25 025 Active Vitamins B Complex tablet TAKE 1 TABLET BY MOUTH DAILY 90 tablet 07/05/19 25 Active NIFEdipine CC (ADALAT CC) 60 mg 24 hr tablet Take 1 tablet (60 mg total) by mouth 2 (two) times a day. Do not crush, chew, or split. Active ezetimibe (ZETIA) 10 mg tablet Take 1 tablet (10 mg total) by mouth 1 (one) time each day. 90 each 3 07/08/19 25 Active HYDROmorphone (DILAUDID) 2 mg tablet 07/30/19 24 025 Discontinued Vitamins B Complex tablet TAKE 1 TABLET BY MOUTH DAILY 90 tablet 04/11/19 25 025 Discontinued triamcinolone (KENALOG) 0.1 % cream Apply to affected area 1-2 times daily as needed for 2 weeks 15 g 04/22/19 25 025 Active Problems Problem Noted Date Diagnosed Date Diabetes mellitus ([facility] V24, [facility] V28) 08/2024 Abnormal EKG 10/10/2022 Overview (01/09/2024): Last Assessment & Plan: Has been chronic. Both stress test and echocardiogram were unremarkable. She has felt well without symptoms to suggest angina or heart failure. We will continue primary prevention. Osteoarthritis of spine with radiculopathy, lumb ar region 06/02/2022 Hyperparathyroidism due to r enal insufficiency ([facility] V24) 05/03/2021 Vitamin D deficiency 05/03/2021 Murmur, cardiac 01/28/2021 Overview (01/09/2024): Last Assessment & Plan: She has no significant valvular disease. Assessment & Plan (07/07/2024 11:34 AM EDT): Patient has a prominent midsystolic murmur with a grade of 3/6 heard best over the R&L USB radiating into the neck. Last echocardiogram from March 2021 showed aortic annular calcification and mild focal thickening of the aortic valve leaflets with elevated LVOT velocity but no aortic stenosis and only trace aortic insufficiency. I will update an echocardiogram to reassess cardiac structures and function. History of COVID-19 09/21/2020 Overview (06/05/2024): Positive 07/27/2020 Hypertensive renal disease 05/24/2020 Hypokalemia 01/22/2020 Diabetes mellitus type 2 wit h peripheral artery disease ([facility] V24, [facility] V28) 08/06/2018 Overview (01/09/2024): [facility] - see testing 07/31/18 - stenoses in both lower extremity arteries; 12/2019 multilevel stenoses Peripheral artery disease ([facility] V24) 08/07/19 Overview (01/09/2024): [facility] Last Assessment & Plan: Overall, no obvious claudication symptoms with ambulation. We will continue current regimen. She had fairly significant murmur/Kaylyn in bilateral neck area which could be transmitted from LVOT murmur. We will arrange carotid ultrasound. Abnormal echocardiogram 06/12/2018 Assessment & Plan (07/07/2024 11:42 AM EDT): Remains unchanged, with an unremarkable stress test and echocardiogram. She denies any signs or symptoms of coronary insufficiency. We will continue with primary prevention. ROSEANNA (obstructive sleep apnea) 02/11/2016 Overview (01/09/2024): [facility] ([facility]). 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 Type 2 diabetes mellitus wit h renal manifestations ([facility] V24, [facility] V28) 01/27/2013 Overview (01/09/2024): Last Assessment & Plan: Better control of diabetes. Continue current regimen. See diabetes medical accounting clerk/educator as planned. Return in 3 months with lab tests at least 1 week before next visit. 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 ([facility] V24, [facility] V28) 12/26/2012 Constipation 05/13/2012 Gout 12/01/2011 Overview (01/09/2024): Hyperuricemia, recurrent lower extremity attacks, cystic change in left 1st MTP Rheumatoid factor positive 12/01/2011 Overview (01/09/2024): No obvious synovitis as of 06/12 GERD (gastroesophageal reflux disease) 1 Osteopenia 01/17/2011 Overview (01/09/2024): LS T score -1.6 CKD (chronic kidney disease) , stage III ([facility] V24, [facility] V28) 11/19/2010 Microalbuminuria 11/19/2010 Low back pain 11/05/2010 Hyperlipidemia 11/03/2010 Overview (01/09/2024): IMO update Last Assessment & Plan: I highly suspect that she probably not taking rosuvastatin prior to lipid profile. I asked her daughter to give us a call back after reviewing her medication bottles. Assessment & Plan (07/07/2024 11:39 AM EDT): Last lipid panel reviewed, LDL 78, and given history of diabetes, still not quite at goal of less than 70. She is already taking max dose of rosuvastatin 40 mg daily. I will add Zetia and have asked her to repeat a lipid panel in 8 to 12 weeks. Hypertension 11/03/2010 Overview (07/07/2024): >>OVERVIEW FOR ESSENTIAL HYPERTENSION, BENIGN WRITTEN ON 01/09/2024 10:13 AM BY KARISSA OBREGON Last Assessment & Plan: Well-controlled. Assessment & Plan (07/07/2024 11:47 AM EDT): Blood pressure is somewhat elevated in the office today at 148/64. Daughter reports patient had black coffee prior to her visit and that readings at home are better controlled. No change to current medical therapy for now. She will continue to follow closely with nephrology Dr. Verdugo. Encounters Date Type Department Care Team Description 07/07/2024 10:40 AM EDT Office Visit [facility] [address] [facility] [address] [place] [phone] Laurita Hernandez NP Murmur, cardiac (Primary Dx); Mixed hyperlipidemia; Primary hypertension; Abnormal echocardiogram 06/30/2024 8:30 AM EDT Office Visit Orth[facility] Surgery - [place] [address] [facility] [address] [place] [phone] Adrash Escalante, DPM Tendinitis of left ankle (Primary Dx); Acquired hammer toe of right foot; Dermatophytosis of nail; Pain in toe of right foot; Pain in toe of left foot; Diabetic mononeuropathy simplex (CMS/HCC V24, CMS/HCC V28); Type II diabetes mellitus with peripheral circulatory disorder (CMS/HCC V24, CMS/HCC V28); Peripheral venous insufficiency 06/06/2024 10:30 AM EST Consult Vascular Surgery - [place] [address] [place] [phone] Portia Jamison PA Diabetes mellitus type 2 with peripheral artery disease (CMS/HCC V24, CMS/HCC V28) (Primary Dx); Peripheral venous insufficiency; Bilateral lower extremity edema; Decreased pedal pulses 06/05/2024 8:00 AM EST Office Visit Adult [address] [phone] Jaclyn Helms PA Skin lesions (Primary Dx); Primary hypertension 06/03/2024 Telephone Adult [address] [phone] Jaclyn Helms PA Rash 04/22/2024 9:00 AM EST Office Visit Adult [address] [address] Jaclyn Helms PA Dermatitis (Primary Dx) 04/21/2024 Telephone Adult [address] [phone] Tegan Driscoll MD Rash from Last 3 [...] PROCEDURE: HISTORICAL TUBAL LIGATION KNEE ARTHROSCOPY PROCEDURE: GA ARTHROSCOPY KNEE DIAGNOSTIC W/WO SYNOVIAL BX SPX; COMMENT: right 12/09 CHOLECYSTECTOMY PROCEDURE: HISTORICAL CHOLECYSTECTOMY Medical History Medical History Date Comments DM type 2 (diabetes mellitus , type 2) ([facility] V24, [facility] V28) 11/05/2010 DX:DM type 2 (diabetes claire itus, type 2) ([facility]) Essential hypertension, benign 11/03/2010 D [...] wit h renal manifestations not at goal ([facility] V24, [facility] V28) 01/27/2013 DX:Type 2 diabetes mellitus with renal manifestations not at goal ([facility]) CKD (chronic kidney disease) , stage III ([facility] V24, [facility] V28) 11/19/2010 DX:CKD (chronic kidney disease), stage III (HCC) GERD (gastroesophageal reflux disease) 1 DX:GERD (gastroesophageal reflux disease) Osteopenia 01/17/2011 DX:Osteopenia; C OMMENT: LS T score -1.6 Rheumatoid factor positive 12/01/2011 DX:Rh eumatoid factor positive; COMMENT: No obvious synovitis as of 3/13 Gout 12/01/2011 DX:Gout; COMMENT : Hyperuricemia, recurrent lower extremity attacks, cystic change in left 1st MTP Chest pain 09/29/2013 DX:Chest pain; C OMMENT: Negative Regadenoson stress test [facility] 08/2013 Abnormal US (ultrasound) of abdomen [...] A) involving right middle cerebral artery territory (CMS/HCC V24, CMS/HCC V28) 07/20/2015 DX:Cerebrovascula r accident (CVA) involving right middle cerebral artery territory (HCC) Hemiparesis affecting left s mae as late effect of cerebrovascular accident (CVA) (CMS/HCC V24, CMS/HCC V28) 07/21/2015 DX:Hemiparesis affecting lef t side as late effect of cerebrovascular accident (CVA) ([facility]) Sleep apnea in adult 02/11/2016 DX:Sleep ap clair in adult; COMMENT: [facility] ([facility]). Compliant with CPAP Abnormal echocardiogram 06/12/2018 DX:Abnor [...] Sign Reading Time Taken Comments Blood Pressure 148/64 07/07/2024 10:35 AM EDT Pulse 76 07/07/2024 10:35 AM EDT Temperature 36.8 ??C (98.2 ??F) 06/05/2024 8:15 AM ES T Respiratory Rate 16 06/05/2024 8:15 AM EST Oxygen Saturation 99% 07/07/2024 10:35 AM EDT Inhaled Oxygen Concentration - - Weight 58.1 kg (128 lb) 07/07/2024 10:35 AM EDT Height 157.5 cm (5' 2 ) 07/07/2024 10:35 AM EDT Body Mass Index 23.41 07/07/2024 10:35 AM EDT Plan of Treatment Upcoming Encounters Date Type Department Care Team (Late st Contact Info) Description 08/01/2024 12:00 PM EDT Ancillary Procedure [facility] [address] [facility] [address] [place] [address] 08/04/2024 2:15 PM EDT Ancillary Procedure [facility] - [facility] [address] [facility] [address] [place] [address] 09/01/2024 9:00 AM EDT Office Visit Orthopedic Surgery - [place] [address] [facility] [address] [place] [phone] Adarsh Escalante, DPM [address] [facility] [address] [place] [address] 09/11/2024 9:30 AM EDT Office Visit Vascular Surgery - [place] [address] [facility] [address] [place] [address] Portia Jamison PA [address] [facility] [address] [place] [address] 09/24/2024 10:00 AM EDT Ancillary Procedure [facility] [address] [facility] [address] [place] [phone] 11/21/2024 2:10 PM EDT Appointment Radiology Department - [address] [phone] Health Maintenance Due Date Last Done Comments Diabetes: Annual Retina Eye Exam 10/05/1955 Zoster Vaccines (1 of 2) 10/05/1995 RSV Immunization Adult Patients (1 - 1-dose 75+ series) 2020 Osteoporosis [...] age to complete this topic Meningococcal B Vaccine Aged Out No l onger eligible based on patient's age to complete this topic RSV Immunization Patients Under 20 months Aged Out No longer eligible based on patient's age to complete this topic Varicella Vaccines Aged Out No longer eligible based on patient's age to complete this topic Procedures Procedure Name Priority Date/Time Associated Diagnosis Comments ECG 12-LEAD Routine 07/07/2024 11:42 AM EDT Primary hypertension URINE ALBUMIN CREATININE RATIO Routine 01/07/2024 ANNUAL BMP BLOOD TEST Routine 01/07/2024 HEMOGLOBIN A1C Routine 01/07/2024 LIPID PANEL Routine 01/07/2024 DIABETES FOOT EXAM Routine 01/01/2024 FALLS RISK ASSESSMENT Routine 07/17/2023 DEPRESSION SCREENING Routine 02/12/2023 HEPATITIS C SCREENING Routine 05/18/2020 from Last 3 Months or Most Recently Relevant to Health Maintenance Results * ECG 12 lead (07/07/2024 11:42 AM EDT) [facility] Ventricular Rate ECG 76 BPM GEMUSE Atrial Rate 76 BPM GEMUSE P-R Interval 182 ms GEMUSE QRS Duration 88 ms GEMUSE Q-T Interval 408 ms GEMUSE QTc 459 ms GEMUSE P Wave [place] 62 degrees GEMUSE R [place] 19 degrees GEMUSE T [place] -164 degrees GEMUSE ECG Interpretation Normal sinus rhythm Septal infarct (cited on or before 19-NOV-2014) Non-specific ??ST and T-wave abnormalities. No significant changes when compared with prior EKG. Confirmed by Zacarias ALEXANDER YUFENG ([id number]) on 07/08/2024 10:20:45 AM GEMUSE 07/07/2024 10:4 2 AM EDT 07/08/2024 10:20 AM EDT Laurita Hernandez CIVIL ESTIMATOR ECG ORDERABLES Edited Result - Final GEMUSE * Urine Albumin Creatinine Ratio (01/07/2024) [facility] Urine Albumin Creatinine Ratio Abstracted Result [facility] Historical Provider HEALTH MAINTENANCE Final Result * Annual BMP Blood Test (01/07/2024) [facility] Annual BMP Blood Test Abstracted Historical Provider HEALTH MAINTENANCE Final Result * (ABNORMAL) Hemoglobin A1c (01/07/2024) [facility] Hemoglobin A1C 7.0(A) <=6.5 % Blood Venous blood specimen / Unknown Result [facility] Historical Provider LAB BLOOD ORDERABLES Ila l Result * (ABNORMAL) Lipid panel (01/07/2024) [facility] LDL/HDL Ratio 3 0 - 4 Triglycerides 152(A) 0 - 150 mg/dL Cholesterol 167 0 - 200 mg/dL HDL 59 >=40 mg/dL LDL Cholesterol 78 0 - 100 mg/dL Blood Venous blood specimen / Unknown Result [facility] Provider LAB BLOOD ORDERABLES Ila l Result * Diabetes Foot Exam (01/01/2024) [facility] Diabetes: Annual Foot Exam Abstracted Result [facility] Provider HEALTH MAINTENANCE Final Result * Falls Risk Assessment (07/17/2023) [facility] Falls Risk Assessment Abstracted Result [facility] Provider HEALTH MAINTENANCE Final Result * Depression Screening (02/12/2023) [facility] Depression Screening Abstracted Result [facility] Provider HEALTH MAINTENANCE Final Result * Hepatitis C Screening (05/18/2020) [facility] Hepatitis C Screening Abstracted [facility] Provider HEALTH MAINTENANCE Final Result from Last 3 Months or Most Recently Relevant to Health Maintenance Insurance [facility] [place]ID [place] [id number] Care Teams Bow Stapler Relationship Specialty Start Date End Date Tegan Driscoll MD [address] [place] [id number] PCP - General Internal Medicine 11/01/21
--- OUTSIDE RECORDS SUMMARY | 2024-07-10 11:04 | XMS_ITS | Encounter Summary ---
Author Organization [facility] Address [address] [place] [address] Care Team Providers Care Director Strategy Name Role Phone Tegan Driscoll MD Primary Care Prov ider Reason for Referral * Imaging (Routine) - Pending Review Specialty Diagnoses / Procedures Referred By Vania fonseca Referred To Contact Cardiology Diagnoses Murmur, cardiac Procedures Transthoracic echocardiogram (TTE) complete with PRN contrast, bubble, strain, and 3D order panel FL TTE W 2D IMAGE COMPLETE W DOPPLER ECHO & COLOR FLOW DOPPLER ECHO FL JENIFER 2D COMPLETE W/CONTRAST OR W & WO CONTRAST WITH DOPPLER Laurita Hernandez NP [address] [place] [address] Phone: tel: fax: [facility] Referral ID Status Reason Start Date Expiration Date V isits Requested Visits Authorized [id number] Pending Review 07/07/2024 07/07/2025 1 1 Reason for Visit * Reason Comments Follow-up Encounter Details Date Type Department Care Team (Latest Contact Info) Description 07/07/2024 10:40 AM EDT Office Visit [facility] [address] [place] [address] Laurita Hernandez NP [address] [place] [address] Murmur, cardiac (Primary Dx); Mixed hyperlipidemia; Primary hypertension; Abnormal echocardiogram Social History Tobacco Use Types Packs/Day Years [...] Pulse 76 07/07/2024 10:35 AM EDT Temperature - - Respiratory Rate - - Oxygen Saturation 99% 07/07/2024 10:35 AM EDT Inhaled Oxygen Concentration - - Weight 58.1 kg (128 lb) 07/07/2024 10:35 AM EDT Height 157.5 cm (5' 2 ) 07/07/2024 10:35 AM EDT Body Mass Index 23.41 07/07/2024 10:35 AM EDT documented in this encounter Ordered Prescriptions Prescription Sig Dispense Quantity Refills Last Filled Start Date End Date ezetimibe (ZETIA) 10 mg tablet Take 1 tablet (10 mg total) by mouth 1 (one) time each day. 90 each 3 07/07/2024 documented in this encounter Progress Notes * Laurita Hernandez NP - 07/07/2024 11:42 AM EDTAssociated Problem(s): Abnormal echocardiogram Remains unchanged, with an unremarkable stress test and echocardiogram. She denies any signs or symptoms of coronary insufficiency. We will continue with primary prevention. * Laurita Hernandez NP - 07/07/2024 11:38 AM EDTAssociated Problem(s): Hyperlipidemia Last lipid panel reviewed, LDL 78, and given history of diabetes, still not quite at goal of less than 70. She is already taking max dose of rosuvastatin 40 mg daily. I will add Zetia and have asked her to repeat a lipid panel in 8 to 12 weeks. * Laurita Hernandez NP - 07/07/2024 11:36 AM EDTAssociated Problem(s): Hypertension Blood pressure is somewhat elevated in the office today at 148/64. Daughter reports patient had black coffee prior to her visit and that readings at home are better controlled. No change to current medical therapy for now. She will continue to follow closely with nephrology Dr. Verdugo. * Laurita Hernandez NP - 07/07/2024 11:34 AM EDTAssociated Problem(s): Murmur, cardiac Patient has a prominent midsystolic murmur with a grade of 3/6 heard best over the R&L USB radiating into the neck. Last echocardiogram from March 2021 showed aortic annular calcification and mild focal thickening of the aortic valve leaflets with elevated LVOT velocity but no aortic stenosis and only trace aortic insufficiency. I will update an echocardiogram to reassess cardiac structures and function. * Laurita Hernandez NP - 07/07/2024 10:40 AM EDT Images from the original note were not included. [facility] PRIMARY RENT COLLECTOR: Tera Farnsworth MD PCP: Tegan Ames MD HPI: Deonna Escobar is a 78 y.o. old Ukrainian speaking female with history of hypertension, hyperlipidemia, type II diabetes, peripheral artery disease, chronic kidney disease followed closely [facility], prior cerebrovascular accident with residual left-sided hemiparesis and heart murmur. She had a normal cardiac catheterization in 2003 at [facility]. Echocardiogram in March 2021 showed mildly dilated left atrium, normal LV size and systolic function, normal regional wall motion, mild to moderate concentric left ventricular hypertrophy with an LVEF of 65-70% and a grade 1 abnormal LV diastolic function. Normal right atrial size, normal right v entricular size and function. Aortic annular calcification and mild focal thickening of the aortic valve leaflets with elevated LVOT velocity but no aortic stenosis and only trace aortic insufficiency. Trace mitral regurgitation and mild tricuspid regurgitation. Mild ascending aorta dilation at 3.7cm. A pharmacological nuclear stress test completed in July 2021 was normal, nuclear imaging negative for ischemia and infarction, TID ratio was normal, with an LVEF of 79%. Deonna was last seen in September 2022. She presents today for routine cardiology follow-up accompanied by her daughter who assists with incidental translation. She has had no cardiac related hospitalizations since her last visit. About 1 year ago she underwent abdominal surgery without complications. She denies cardiac related complaints including chest pain and shortness of breath with or without exertion, lightheadedness/near syncope, palpitations, orthopnea and paroxysmal nocturnal dyspnea. She remains active and denies symptoms with exertion. Her main concern is bilateral lower extremity edema. She recently saw vascular at [facility] and is pending bilateral lower extremity venous and arterial studies. Compression socks were recommended. ACTIVE MEDICATIONS: Current Outpatient Medications Medication Instructions acetaminophen (TYLENOL) 500 mg tablet 1 tablet, Every 6 hours PRN alcohol swabs pads, medicated 1 Packet by Subdermal route daily. USE FOUR TIMES DAILY amLODIPine (NORVASC) 10 mg tablet 1 tablet, Daily calcium carbonate 600 mg, 2 times daily with meals cholecalciferol (VITAMIN D-3) 1,000 Units, Daily clopidogreL (PLAVIX) 75 mg tablet 1 tablet, Daily clotrimazole (LOTRIMIN) 1 % cream Apply to skin and toenails daily for 12 weeks diclofenac (VOLTAREN ARTHRITIS PAIN) 4 g, Topical, 2 times daily diclofenac (VOLTAREN) 1 g, 3 times daily ezetimibe (ZETIA) 10 mg, oral, Daily freestyle (FreeStyle Lancets) 28 gauge lancets Use to check blood sugars 4x daily FreeStyle Sarah 2 Sensor kit 1 EA gabapentin (NEURONTIN) 100 mg, oral, Daily PRN glucose blood test strip Use to check blood sugars 4x daily insulin aspart (NovoLOG Flexpen U-100 Insulin) 100 unit/mL (3 mL) injection pen ADMINISTER 4 TO 12 UNITS UNDER THE SKIN THREE TIMES DAILY BEFORE MEALS insulin syringe-needle U-100 0.5 mL 29 gauge x 1/2 syringe Inject 1 Syringe into the skin 4 times daily. Lantus Solostar U-100 Insulin 10 Units, Nightly NIFEdipine CC (ADALAT CC) 60 mg, 2 times daily omeprazole (PriLOSEC) [address] capsule 1 capsule, Daily pen needle, diabetic 32 gauge x needle USE DIRECTED FOUR TIMES DAILY rosuvastatin (CRESTOR) 40 mg tablet 1 tablet, Daily Trulicity 0.75 mg, subcutaneous, Weekly Vitamins B Complex tablet 1 tablet, oral, Daily PAST MEDICAL HISTORY: Patient Active Problem List Diagnosis Abnormal echocardiogram Abnormal EKG Cerebrovascular accident (CVA) involving right middle cerebral artery territory ([facility]) Chest pain CKD (chronic kidney disease), stage III ([facility]) Constipation Diabetes mellitus type 2 with peripheral artery disease ([facility]) 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 ([facility]) GERD (gastroesophageal reflux disease) Gout Hemiparesis affecting left side as late effect of cerebrovascular accident (CVA) ([facility]) Hyperlipidemia Hyperparathyroidism due to renal insufficiency ([facility]) Hypokalemia Low back pain Microalbuminuria Murmur, cardiac ROSEANNA (obstructive sleep apnea) Osteoarthritis of spine with radiculopathy, lumbar region Osteopenia Papilledema Peripheral artery disease ([facility]) Rheumatoid factor positive Tear, knee, medial meniscus Type 2 diabetes mellitus with renal manifestations ([facility]) Vitamin D deficiency Hypertensive renal disease Hypertension History of COVID-19 Diabetes mellitus ([facility]) ALLERGIES: Allergies Allergen Reactions Chlorthalidone Other Low potassium Other reaction(s): OTHER, Other (see comments) Low potassium Low potassium Iodinated Contrast [place] Swelling Latex Loratadine Other reaction(s): Other (see comments) Oxycodone Penicillins Other reaction(s): itching, Other (see comments) patient tolerates piperacillin/tazobactam SOCIAL HISTORY: Social History Tobacco Use Smoking status: Never Smokeless tobacco: Never Substance Use Topics Alcohol use: No PHYSICAL EXAM: Vitals: 07/07/24 1035 BP: (!) 148/64 Pulse: 76 SpO2: 99% Weight: 58.1 kg (128 lb) Height: 1.575 m (62 ) Physical Exam Constitutional: General: She is not in acute distress. Appearance: Normal appearance. HENT: Head: Normocephalic and atraumatic. Neck: Vascular: No carotid bruit. Cardiovascular: Rate and Rhythm: Normal rate and regular rhythm. Pulses: Normal pulses. Heart sounds: S1 normal and S2 normal. Murmur heard. Harsh midsystolic murmur is present with a grade of 3/6 at the upper right sternal border and upperleft sternal border radiating to the neck. No friction rub. No gallop. Pulmonary: Effort: Pulmonary effort is normal. Breath sounds: Normal breath sounds. Abdominal: General: Abdomen is flat. Palpations: Abdomen is soft. Musculoskeletal: Cervical back: Normal range of motion and neck supple. Right lower leg: Edema (mild) present. Left lower leg: Edema (mild) present. Skin: General: Skin is warm and dry. Neurological: General: No focal deficit present. Mental Status: She is alert and oriented to person, place, and time. EKG: TESTIN01/07/2024 Cholesterol 167 Triglycerides 152 LDL 78 HDL 59 Hemoglobin A1c 7.0 Glucose 100 BUN 34 Creatinine 1.74 GFR 30 Sodium 142 Potassium 3.6 Chloride 107 Bicarb 26 Gap 9 Calcium 9.9 ASSESSMENT/PLAN: As per AHA guidelines and previously established plan of care by Dr. Tera Farnsworth MD, we discussed the following today: Problem List Items Addressed This Visit Abnormal echocardiogram Remains unchanged, with an unremarkable stress test and echocardiogram. She denies any signs or symptoms of coronary insufficiency. We will continue with primary prevention. Hyperlipidemia Last lipid panel reviewed, LDL 78, and given history of diabetes, still not quite at goal of less than 70. She is already taking max dose of rosuvastatin 40 mg daily. I will add Zetia and have asked her to repeat a lipid panel in 8 to 12 weeks. Relevant Medications ezetimibe (ZETIA) 10 mg tablet Other Relevant Orders Lipid panel with reflex to direct LDL Murmur, cardiac - Primary Patient has a prominent midsystolic murmur with a grade of 3/6 heard best over the R&L USB radiating into the neck. Last echocardiogram from March 2021 showed aortic annular calcification and mild focal thickening of the aortic valve leaflets with elevated LVOT velocity but no aortic stenosis and only trace aortic insufficiency. I will update an echocardiogram to reassess cardiac structures and function. Relevant Orders Transthoracic echocardiogram (TTE) complete with PRN contrast, bubble, strain, and 3D order panel Hypertension Blood pressure is somewhat elevated in the office today at 148/64. Daughter reports patient had black coffee prior to her visit and that readings at home are better controlled. No change to current medical therapy for now. She will continue to follow closely with nephrology Dr. Verdugo. Relevant Medications NIFEdipine CC (ADALAT CC) 60 mg 24 hr tablet Other Relevant Orders ECG 12 lead (Completed) Orders Placed This Encounter Procedures Lipid panel with reflex to direct LDL ECG 12 lead Transthoracic echocardiogram (TTE) complete with PRN contrast, bubble, strain, and 3D order panel Thank you for allowing us to participate in the care of this patient. The patient will follow up in1 year, sooner PRN. This note is completed with voice recognition software. Please pardon any grammatical or syntax errors. [facility] Cosigned by Tera Farnsworth MD at 07/07/2024 4:05 PM EDT documented in this encounter Plan of Treatment Upcoming Encounters Date Type Department Care Team (Late st Contact Info) Description 08/01/2024 12:00 PM EDT Ancillary Procedure [facility] [address] [place] [address] 08/04/2024 2:15 PM EDT Ancillary Procedure [facility] [address] [place] [address] 09/01/2024 9:00 AM EDT Office Visit Orthopedic Surgery - [address] [facility] [address] [place] [address] Escalante, Christopher M, DPM [address] [place] [address] 09/11/2024 9:30 AM EDT Office Visit Vascular Surgery - [place] [address] [place] [address] Portia Jamison PA [address] [place] [address] 09/24/2024 10:00 AM EDT Ancillary Procedure [facility] [address] [place] [id number] 11/21/2024 2:10 PM EDT Appointment Radiology Department - [address] [address] Scheduled Orders Name Type Priority Associated Diagnoses Orde r Schedule Lipid panel with reflex to direct LDL Lab Routine Mixed hyperlipidemia Expected: 09/01/2024, Expires: 07/07/2025 Transthoracic echocardiogram (TTE) complete with PRN contrast, bubble, strain, and 3D order panel Echocardiography Routine Murmur, cardiac 1 Occurrences starting 07/07/2024 until 07/07/2025 documented as of this encounter Procedures Procedure Name Priority Date/Time Associated Diagnosis Comments ECG 12-LEAD Routine 07/07/2024 11:42 AM EDT Primary hypertension documented in this encounter Results * ECG 12 lead (07/07/2024 11:42 AM EDT) Ventricular Rate ECG 76 BPM GEMUSE Atrial Rate 76 BPM GEMUSE P-R Interval 182 ms GEMUSE QRS Duration 88 ms GEMUSE Q-T Interval 408 ms GEMUSE QTc 459 ms GEMUSE P Wave Surprise 62 degrees GEMUSE R Surprise 19 degrees GEMUSE T Surprise -164 degrees GEMUSE ECG Interpretation Normal sinus rhythm Septal infarct (cited on or before 19-NOV-2014) Non-specific ??ST and T-wave abnormalities. No significant changes when compared with prior EKG. Confirmed by Zacarias FARNSWORTH YUFENG ([id number]) on 07/08/2024 10:20:45 AM GEMUSE 07/07/2024 10:4 2 AM EDT 07/08/2024 10:20 AM EDT Laurita Hernandez POLITICAL WORKER ECG ORDERABLES Edited Result - Final GEMUSE documented in this encounter Visit Diagnoses Diagnosis Murmur, cardiac- Primary Undiagnosed cardiac murmurs Mixed hyperlipidemia Primary hypertension Unspecified essential hypertension Abnormal echocardiogram Nonspecific (abnormal) findings on radiological and other examination of other intrathoracic organs Encounter for screening mammogram for breast cancer documented in this encounter Discontinued Medications Medication Sig Discontinue Reason Start Date End Da te HYDROmorphone (DILAUDID) 2 mg tablet 07/30/2023 07/07/2024 documented as of this encounter Historical Medications * This list may reflect changes made after this encounter. NIFEdipine CC (ADALAT CC) 60 mg 24 hr tablet Take 1 tablet (60 mg total) by mouth 2 (two) times a day. Do not crush, chew, or split. added in this encounter Care Teams Director Strategy Relationship Specialty Start Date End Date Tegan Driscoll MD [address] [place] [id number] PCP - General Internal Medicine 11/01/21 documented as of this encounter
--- OUTSIDE RECORDS SUMMARY | 2024-07-10 11:04 | XMS_ITS | Clinical Summary ---
Author Organization [facility] Address [address] [facility] [address] [place] [address] Phone Care Team Providers Care Tobacco Warehouse Manager Name Role Phone Marissa Bray CNP Primary Care Provider [phone] Allergies Active Allergy Reactions Criticality Noted Date [...] a day 1 Active Deep Sea Nasal [place] 0.65 % nasal spray Administer 1 spray [...] Peripheral vascular disease 08/06/2018 08/20/2020 Overview (05/24/2020): [facility] Abnormal echocardiogram 06/12/201808/01 Obstructive sleep apnea syndrome 02/11/2016 08/20/2020 Overview (05/24/2020): [facility] ([facility] Compliant with CPAP Hemiparesis as late effect o f cerebrovascular accident 07/21/2015 08/20/2020 Right sided cerebral hemisph ere cerebrovascular accident 07/20/2015 08/20/2020 Tear of medial meniscus of knee 11/10/2014 08/20/2020 Papilledema 02/06/2014 08/20/2020 Hyperparathyroidism 12/16/2013 08/21/19 Chest pain 09/29/2013 08/20/2020 Overview (05/24/2020): Negative Regadenoson stress test [facility] 08/2013 Type 2 diabetes mellitus 12/26/2012 Overview (05/24/2020): Last Assessment & Plan: Better control of diabetes. Continue current regimen. See diabetes check totaler/educator as planned. Return in 3 months with lab tests at least 1 week before next visit. [facility] - see testing 07/31/18 - [...] 11/03/2010 08/20/2020 Overview (05/24/2020): IMO update Immunizations Immunization Administration Dates Next Due Influenza Split High [...] Due Date Last Done Comments Influenza Vaccine (Season Ended) 2024 01/28/2021, 01/25/2020, 01/25/2020, Additional history exists Pneumococcal Vaccine: 50+ Years Completed 01/24/2017, 07/10/2015, 11/17/2010 Hepatitis B Vaccine Aged Out No longe r eligible based on patient's age to complete this topic Insurance MCR ([id number]) [place] [phone] ([id number]) Care Teams Tobacco Warehouse Manager Relationship Specialty Start Date End Date Marissa Bray CNP PCP - General Nurse Practitioner 04/18/22
== END 2024-07-10 10:40 | disposition home or self-care (01) ==
LOC: HO.HKAS 09:47
PROVIDERS: PCP Internal Medicine; Visit Provider Internal Medicine Nephrology
DX: E11.21 Type 2 diabetes mellitus with diabetic nephropathy (principal); I69.359 Hemiplegia and hemiparesis following cerebral infarction affecting unspecified side; I10 Essential (primary) hypertension; N18.32 Chronic kidney disease, stage 3b
CPT/HCPCS: 99214

== ENCOUNTER → 2024-07-10 09:47 | Outpatient (BNVA) | payer OTHER, SELFPAY | PROVIDERS: PCP Internal Medicine; Visit Provider Internal Medicine Nephrology | DX: I12.9 Hypertensive chronic kidney disease with stage 1 through stage 4 chronic kidney disease, or unspecified chronic kidney disease (principal); E11.22 Type 2 diabetes mellitus with diabetic chronic kidney disease; N18.32 Chronic kidney disease, stage 3b; E11.21 Type 2 diabetes mellitus with diabetic nephropathy; Z86.73 Personal history of transient ischemic attack (TIA), and cerebral infarction without residual deficits | CPT/HCPCS: 99212 ==

== ENCOUNTER 2024-11-17 11:21 | Outpatient (REF) | payer OTHER, SELFPAY ==
--- OUTSIDE RECORDS SUMMARY | 2024-11-17 12:40 | XMS_ITS | Clinical Summary ---
Author Organization [facility] Address [address] [place] [address] Care Team Providers Care Row Boss Name Role Phone Tegan Johnson MD Primary [...] 72 08/29/2023 10:11 AM EDT Temperature 36.4 C (97.6 F) 08/29/2023 10:11 AM EDT Respiratory Rate - - Oxygen Saturation 100% [...] Tdap) 05/13/2022 05/13/2012, 11/17/2010 Influenza Vaccine (#1) 2024 3, 01/28/2021, 01/28/2021, Additional history exists Pneumococcal Vaccine Completed 01/24/2017, 07/10/2015, 11/17/2010 Hepatitis B Vaccines Aged Out No long er eligible based on patient's age to complete this topic RSV Ped < 20 months Aged Out No longe r eligible based on patient's age to complete this topic Care Teams Row Boss Relationship Specialty Start Date End Date Tegan Johnson MD [address] [place] [address] PCP - General Internal Medicine 07/31/23
--- OUTSIDE RECORDS SUMMARY | 2024-11-17 12:40 | XMS_ITS | Clinical Summary ---
Author Organization [facility] Address [address] [facility] [address] [place] [address] Phone Care Team Providers Care Returned Case Inspector Name Role Phone Marissa Bray CNP Primary Care Provider [phone] Allergies Active Allergy Reactions Criticality Noted Date [...] a day 1 Active Deep Sea Nasal [place] 0.65 % nasal spray Administer 1 spray [...] Peripheral vascular disease 08/06/2018 08/20/2020 Overview (05/24/2020): [facility] Abnormal echocardiogram 06/12/201808/01 Obstructive sleep apnea syndrome 02/11/2016 08/20/2020 Overview (05/24/2020): [facility] ([facility]). Compliant with CPAP Hemiparesis as late effect o f cerebrovascular accident 07/21/2015 08/20/2020 Right sided cerebral hemisph ere cerebrovascular accident 07/20/2015 08/20/2020 Tear of medial meniscus of knee 11/10/2014 08/20/2020 Papilledema 02/06/2014 08/20/2020 Hyperparathyroidism 12/16/2013 08/21/19 Chest pain 09/29/2013 08/20/2020 Overview (05/24/2020): Negative Regadenoson stress test [facility] 08/2013 Type 2 diabetes mellitus 12/26/2012 Overview (05/24/2020): Last Assessment & Plan: Better control of diabetes. Continue current regimen. See diabetes senior mobile solutions architect/educator as planned. Return in 3 months with lab tests at least 1 week before next visit. [facility] - see testing 07/31/18 - [...] Date Last Done Comments Influenza Vaccine (#1) 2024 , 01/25/2020, 01/25/2020, Additional history exists Pneumococcal Vaccine: 50+ Years Completed 01/24/2017, 07/10/2015, 11/17/2010 Pneumococcal Vaccine: Peds (0 to 5 Years) and At-Risk Patients (6 to 49 Years) Discontinued 01/24/2017, 07/10/2015, 11/17/2010 Hepatitis B Vaccine Aged Out No longe r eligible based on patient's age to complete this topic Insurance ([id number]) [place] [phone] ([id number]) Care Teams Returned Case Inspector Relationship Specialty Start Date End Date Marissa Bray CNP PCP - General Nurse Practitioner 04/18/22
--- OUTSIDE RECORDS SUMMARY | 2024-11-17 12:40 | XMS_ITS | Clinical Summary ---
Author Organization [facility] [address] [facility] Address [address] [place] [address] Phone Care Team Providers Care Electrical Design Engineer Name Role Phone Tegan Driscoll MD Primary Care Prov ider Allergies Active Allergy Reactions Criticality Noted Date Comments Chlorthalidone Other 10/30/2019 Low potassium Other reaction(s): OTHER, Other (see comments) Low potassium Low potassium Iodinated Contrast Media Swelling 11/11/2010 Latex 05/03/2021 Oxycodone 05/03/2021 Penicillins 07/09/2011 Other reaction(s): itching, Other (see comments) patient tolerates piperacillin/tazobactam Medications cholecalcifero l (VITAMIN D-3) 25 mcg (1,000 unit) capsule Take 1 capsule (1,000 Units total) by mouth 1 (one) time each day. 07/17/19 24 Active clopidogreL (PLAVIX) 75 mg tablet Take 1 tablet (75 mg total) by mouth 1 (one) time each day. 06/11/19 16 Active diclofenac (VOLTAREN) 1 % topical gel Apply 1 g topically 3 (three) times a day. 10/16/19 24 Active calcium carbonate 1,500 mg (600 mg [...] skin 4 times daily. 03/13/20 13 Active FreeStyle Sarah 2 Sensor kit 1 [...] daily 200 each 06/06/19 25 026 Active ezetimibe (ZETIA) 10 mg tablet Take 1 tablet (10 mg total) by mouth 1 (one) time each day. 90 each 3 07/08/19 25 Active amLODIPine (NORVASC) 10 mg tablet TAKE 1 TABLET BY MOUTH DAILY 90 tablet 1 09/09/19 25 Active rosuvastatin (CRESTOR) 40 mg tablet TAKE 1 TABLET BY MOUTH DAILY 90 tablet 3 10/03/19 25 Active Vitamins B Complex tablet TAKE 1 TABLET BY MOUTH DAILY 90 tablet 10/03/19 25 Active omeprazole (PriLOSEC) [address] capsule TAKE 1 CAPSULE BY MOUTH DAILY 90 capsule 1 11/06/19 25 Active montelukast (SINGULAIR) 10 mg tablet TAKE 1 TABLET BY MOUTH AT BEDTIME 90 tablet 1 11/06/19 25 Active Trulicity 0.75 mg/0.5 mL pen injector injection ADMINISTER 0.75 MG UNDER THE SKIN 1 TIME EVERY WEEK 2 mL 11/12/19 25 Active Lantus Solostar U-100 Insulin 100 unit/mL (3 mL) injection pen INJECT 10 UNITS UNDER THE SKIN EVERY NIGHT AT BEDTIME 15 mL 11/12/19 25 Active pen needle, diabetic 32 gauge x 5/32 needle Inject under the skin 4 (four) times a day. use as directed to administer insulin 360 each 1 11/18/19 25 Active insulin aspart (NovoLOG Flexpen U-100 Insulin) 100 unit/mL (3 mL) injection pen Inject 4-12 Units under the skin 3 (three) times a day before meals. 45 mL 1 11/18/19 25 Active omeprazole (PriLOSEC) [address] capsule Take 1 capsule (20 mg total) by mouth 1 (one) time each day. 08/21/19 24 025 Discontinued insulin glargine (Lantus Solostar U-100 Insulin) 100 unit/mL (3 mL) injection pen Inject 10 Units as directed at bedtime. 07/11/19 23 025 Discontinued pen needle, diabetic 32 gauge x 5/32 needle USE DIRECTED FOUR TIMES DAILY 10/08/19 025 Discontinued(Re order) insulin aspart (NovoLOG Flexpen U-100 Insulin) 100 unit/mL (3 mL) injection pen ADMINISTER 4 TO 12 UNITS UNDER THE SKIN THREE TIMES DAILY BEFORE MEALS 12/17/19 025 Discontinued(Re order) dulaglutide (Trulicity) 0.75 mg/0.5 mL pen injector injection Inject 0.5 mL (0.75 mg total) under the skin 1 (one) time per week. 2 mL 2 04/24/19 025 Discontinued Active Problems Problem Noted Date Diagnosed Date Diabetes mellitus ([facility] V24, [facility] V28) 08/2024 Abnormal EKG 10/10/2022 Overview (01/09/2024): Last Assessment & Plan: Has been chronic. Both stress test and echocardiogram were unremarkable. She has felt well without symptoms to suggest angina or heart failure. We will continue primary prevention. Osteoarthritis of spine with radiculopathy, lumb ar region 06/02/2022 Hyperparathyroidism due to r enal insufficiency ([facility] V24) 05/03/2021 Vitamin D deficiency 05/03/2021 Murmur, [...] type 2 wit h peripheral artery disease ([facility] V24, [facility] V28) 08/06/2018 Overview (01/09/2024): [facility]io - see testing 07/31/18 - stenoses in both lower extremity arteries; 12/2019 multilevel stenoses Peripheral artery disease ([facility] V24) 08/07/19 Overview (01/09/2024): [facility] Last Assessment & Plan: Overall, no [...] ROSEANNA (obstructive sleep apnea) 02/11/2016 Overview (01/09/2024): [facility] ([facility]). 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) ([facility] V24, [facility] V28) 07/21/2015 Cerebrovascular accident (CV A) involving right middle cerebral artery territory ([facility] V24, [facility] V28) 07/20/2015 Tear, knee, medial meniscus 11/10/2014 Papilledema 02/06/2014 Chest pain 09/29/2013 Overview (01/09/2024): Negative Regadenoson stress test [facility] 08/2013 Last Assessment & Plan: Patient [...] 2 diabetes mellitus wit h renal manifestations ([facility] V24, [facility] V28) 01/27/2013 Overview (01/09/2024): Last Assessment & Plan: Better control of diabetes. Continue current regimen. See diabetes machinery mover/educator as planned. Return in 3 months with lab tests at least 1 week before next visit. 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 ([facility] V24, [facility] V28) 12/26/2012 Constipation 05/13/2012 Gout 12/01/2011 Overview (01/09/2024): Hyperuricemia, recurrent lower extremity attacks, cystic change in left 1st MTP Rheumatoid factor positive 12/01/2011 Overview (01/09/2024): No obvious synovitis as of 06/12 GERD (gastroesophageal reflux disease) 1 Osteopenia 01/17/2011 Overview (01/09/2024): LS T score -1.6 CKD (chronic kidney disease) , stage III ([facility] V24, [facility] V28) 11/19/2010 Microalbuminuria 11/19/2010 Low back pain [...] Encounters Date Type Department Care Team Description 11/17/2024 10:30 AM EDT Hospital Encounter [address] [phone] Subacute cough 11/17/2024 10:15 AM EDT Office Visit Adult Medicine [address] [phone] Emeli Archer PA Type 2 diabetes mellitus with diabetic microalbuminuria, with long-term current use of insulin (CMS/HCC V24, CMS/HCC V28) (Primary Dx); Microalbuminuria; Primary hypertension; Mixed hyperlipidemia; History of CVA (cerebrovascular accident); Subacute cough; Non-seasonal allergic rhinitis, unspecified trigger 10/31/2024 Telephone Adult Medicine [address] [phone] Tegan Morelos MD Called Patient 09/26/2024 1:30 PM EDT Ancillary Procedure [facility] - [address] [place] [id number] Murmur, cardiac 09/16/2024 3:00 PM EDT Office Visit [place] [address] [place] [address] Jaime Saravia PA Primary osteoarthritis of right knee (Primary Dx) 09/11/2024 9:30 AM EDT Office Visit Vascular Surgery - [place] [address] [place] [id number] Catina Claire PA Peripheral artery disease ([facility] V24) (Primary Dx) from Last 3 Months Immunizations Name Administration [...] NEPHRECTOMY PROCEDURE: HISTORICAL NEPHRECTOMY; COMMENT: left radical, 8/05 TUBAL LIGATION PROCEDURE: HISTORICAL TUBAL LIGATION KNEE ARTHROSCOPY PROCEDURE: RI ARTHROSCOPY KNEE DIAGNOSTIC W/WO SYNOVIAL BX SPX; COMMENT: right 12/09 CHOLECYSTECTOMY PROCEDURE: HISTORICAL CHOLECYSTECTOMY Medical History Medical History Date Comments DM type 2 (diabetes mellitus , type 2) ([facility] V24, [facility] V28) 11/05/2010 DX:DM type 2 (diabetes claire itus, type 2) ([facility]) Essential hypertension, benign 11/03/2010 D X:Essential hypertension, [...] wit h renal manifestations not at goal ([facility] V24, [facility]) 01/27/2013 DX:Type 2 diabetes mellitus with renal manifestations not at goal ([facility]) CKD (chronic kidney disease) , stage III ([facility], [facility]) 11/19/2010 DX:CKD (chronic kidney disease), stage III ([facility]) GERD (gastroesophageal reflux disease) 1 DX:GERD (gastroesophageal reflux disease) Osteopenia 01/17/2011 DX:Osteopenia; C OMMENT: LS T score -1.6 Rheumatoid factor positive 12/01/2011 DX:Rh eumatoid factor positive; COMMENT: No obvious synovitis as of 06/12 Gout 12/01/2011 DX:Gout; COMMENT : Hyperuricemia, recurrent lower extremity attacks, cystic change in left 1st MTP Chest pain 09/29/2013 DX:Chest pain; C OMMENT: Negative Regadenoson stress test [facility] 08/2013 Abnormal US (ultrasound) of abdomen [...] 02/11/2016 DX:Sleep ap clair in adult; COMMENT: [facility] ([facility]). Compliant with CPAP Abnormal echocardiogram 06/12/2018 [...] Sign Reading Time Taken Comments Blood Pressure 136/64 11/17/2024 9:59 AM EDT Pulse 81 11/17/2024 9:59 AM EDT Temperature 36.6 C (97.8 F) 11/17/2024 9:59 AM EDT Respiratory Rate 14 11/17/2024 9:59 AM EDT Oxygen Saturation 99% 11/17/2024 9:59 AM EDT Inhaled Oxygen Concentration - - Weight 58.1 kg (128 lb) 11/17/2024 9:59 AM EDT Height 157.5 cm (5' 2 ) 09/26/2024 2:14 PM EDT Body Mass Index 23.41 09/26/2024 2:14 PM EDT Plan of Treatment Upcoming Encounters Date Type Department Care Team (Late st Contact Info) Description 11/21/2024 2:10 PM EDT Appointment Radiology Department [address] [phone] 02/17/2025 9:45 AM EST Office Visit Adult Medicine [address] [phone] Tegan Driscoll MD [address] [place] [phone] 08/13/2025 12:00 PM EDT Ancillary Procedure [facility] - [facility] [address] [facility] [address] [place] [phone] 09/14/2025 9:30 AM EDT Office Visit Vascular Surgery - [place] [address] [facility] [address] [place] [phone] Catina Claire PA [address] [place] [address] Health Maintenance Due Date Last Done Comments Diabetes: Annual Retina Eye Exam 10[birth year]05/1955 Zoster Vaccines (1 of 2) 1964 RSV Immunization Adult Patients (1 - 1-dose 75+ series) 2020 Osteoporosis Screening (Bone Density Screening) 03/11/2022 Social Influencers of Health Screening 03/11/2022 COVID-19 Vaccine ( season) 2023 11/23/2021, 03/21/2021, 09/23/2020, Additional history exists Medicare Annual Wellness Visit 02/13/2024 02/12/2023 Depression Screening 04/02/2024 02/12/2023 Diabetes: Blood Sugar Control Test (HGBA1C) 07/07/2024 01/07/2024, 01/07/2024 Falls Risk Assessment 07/16/2024 07/17/2023 Influenza Vaccine (#1) 2024 , 02/12/2023, 01/26/2022, Additional history exists Diabetes: Annual Foot Exam 12/31/2024 01/01/2024 Diabetes: Annual Urine Albumin-Creatinine Ratio (uACR) 01/06/2025 01/07/2024 Diabetes: Annual GFR (Glomerular Filtration Rate) 01/06/2025 01/07/2024, 01/07/2024 Hypertension/CHF/CAD Annual BMP Blood Test 01/06/2025 01/07/2024, 01/07/2024 Cholesterol Screening (Lipid Panel) 01/06/2029 01/07/2024, 01/07/2024 DTaP,Tdap,and Td Vaccines (4 - Td or Tdap) 10/18/2032 10/18/2022, 05/13/2012, 11/17/2010 Pneumococcal Vaccine: 50+ Years Completed 01/24/2017, 07/10/2015, 11/17/2010 Hepatitis C Screening Completed 05/18/2020 HIB Vaccines Aged Out No longer eligi [...] Procedure Name Priority Date/Time Associated Diagnosis Comments XR CHEST 2 VIEWS Routine 11/17/2024 10:4 8 AM EDT Subacute cough TRANSTHORACIC ECHOCARDIOGRAM (TTE) COMPLETE Routine 09/26/2024 2:14 PM EDT Murmur, cardiac RI ARTHROCENTESIS/ASPIRAT ION/INJECTION MAJOR JOINT/BURSA W/O U/S GUIDANCE Routine 09/16/2024 3:00 PM EDT Primary osteoarthritis of right knee URINE ALBUMIN CREATININE RATIO Routine 01/07/2024 ANNUAL BMP BLOOD TEST Routine 01/07/2024 HEMOGLOBIN A1C Routine 01/07/2024 LIPID PANEL Routine 01/07/2024 DIABETES FOOT EXAM Routine 01/01/2024 FALLS RISK ASSESSMENT Routine 07/17/2023 DEPRESSION SCREENING Routine 02/12/2023 HEPATITIS C SCREENING Routine 05/18/2020 from Last 3 Months or Most Recently Relevant to Health Maintenance Results * XR Chest 2 Views (11/17/2024 10:48 AM EDT) Anatomical Region Laterality Modality Body Radiographic Melany ging 11/17/2024 11:3 9 AM EDT Narrative 11/17/2024 11:41 AM EDT Chest, 2 views. History cough. Comparison with prior studies, latest from 07/28/2020. There is no pneumothorax, pleural effusions or focal consolidations. There is no congestive heart failure. Cardiomediastinal silhouette is stable in appearance. There are post operative changes in the upper abdomen. There are atherosclerotic calcifications in the thoracic aorta. CONCLUSIONS: No acute radiographic abnormalities. No significant interval change. -------- FINAL REPORT -------- Dictated By: Linda Akins Dictated Date: 11/17/2024 11:39 ET Assigned Physician: Linda Akins Reviewed and Electronically Signed By: Linda Akins Signed Date: 11/17/2024 11:41 ET Workstation ID: [id number] Transcribed By: Self Edit Transcribed Date: 11/17/2024 11:39 ET Procedure Note Linda Akins MD - 11/17/2024 Chest, 2 views. History cough. Comparison with prior studies, latest from 07/28/2020. There is no pneumothorax, pleural effusions or focal consolidations. Thereis no congestive heart failure. Cardiomediastinal silhouette is stable inappearance. There are post operative changes in the upper abdomen. Thereare atherosclerotic calcifications in the thoracic aorta. CONCLUSIONS: No acute radiographic abnormalities. No significant intervalchange. -------- FINAL REPORT -------- Dictated By: Linda Akins Dictated Date: 11/17/2024 11:39 ET Assigned Physician: Linda Akins Reviewed and Electronically Signed By: Linda Akins Signed Date: 11/17/2024 11:41 ET Workstation ID: [id number] Transcribed By: Self Edit Transcribed Date: 11/17/2024 11:39 ET Emeli Gianni PA IMG XR PROCEDURES Final Result * (ABNORMAL) TRANSTHORACIC ECHOCARDIOGRAM (TTE) COMPLETE (09/26/2024 2:14 PM EDT) BSA 1.56 m2 CV PACS LA Volume (BP) 54 mL CV PACS LA Volume Index (BP) 35 mL/m2 CV PACS LVIDD 4.4 3.8 - 5.2 cm CV PACS LVIDD Index 2.84 cm/m2 CV PACS LVIDS 2.9 2.2 - 3.5 cm CV PACS LVIDS Index 1.87 cm/m2 CV PACS LVPWD 1.3(A) 0.6 - 0.9 cm CV PACS IVSD 1.4(A) 0.6 - 0.9 cm CV PACS LV Mass 2D 228(A) 66 - 150 g CV PACS LV Mass Index 2D 147(A) 44 - 88 g/m2 CV PACS Relative Wall Thickness ratio 0.59(A) 0.22 - 0.42 CV PACS FS 34 % CV PACS LVOT Diameter 1.9 cm CV PACS LVOT Area 2.8 cm2 CV PACS LVOT Stroke Volume 69 mL CV PACS LVOT Stroke Index 45 mL/m2 CV PACS LVOT Cardiac Output 0.0 L/min CV PACS LVOT Cardiac Index 0.0 L/min/m2 CV PACS LVOT Mean Grad 2 mmHg CV PACS MV Peak A Marshall 1.10 m/s CV PACS E Wave Deceleration Time 451(A) 119 - 242 ms CV PACS MV Peak E Marshall 0.50 m/s CV PACS E/A Ratio 0.5(A) 0.8 - 2.0 CV PACS TR Peak Velocity 2.20 m/s CV PACS GLS -17.8 % CV PACS LA Area Sys (A4C) 20 cm2 CV PACS LA Area Sys (A2C) 18 cm2 CV PACS TAPSE 19 mm CV PACS RV Diastolic Basal Dimension 2.7 2.5 - 4.1 cm CV PACS RV Free Wall Peak S' 10 cm/s CV PACS RA Major [place] 4.4 cm CV PACS RA Major [place] Index 2.8 2.2 - 2.8 cm/m2 CV PACS RA 2D Volume 27 mL CV PACS RA 2D Volume Index 17 15 - 27 mL/m2 CV PACS RA Area 12.0 cm2 CV PACS MV PHT 131 ms CV PACS Ao VTI 40.7 cm CV PACS AV Mean Gradient 6 mmHg CV PACS AV Peak Gradient 16 mmHg CV PACS AV Regurgitation PHT 654 ms CV PACS AV Area 2D 1.6 cm2 CV PACS LORI Index (2D) 1.03 cm2/m2 CV PACS LVOT Peak Marshall 1.1 m/s CV PACS AR Max Velocity 3.9 m/s CV PACS Aortic Sinus Valsalva 3.3 cm CV PACS Ascending Aorta 3.7 cm CV PACS Ascending Aorta Index 2.39 cm/m2 CV PACS Inferior Vena Cava Diameter At Expiration 1.2 cm CV PACS IVC Expiration Index 0.77 cm/m2 CV PACS TR Peak Gradient 20 mmHg CV PACS PV Peak Gradient 6 mmHg CV PACS PV Peak Velocity 1.2 m/s CV PACS AV Area Index 1.0 CV PACS Right Ventricular Peak Systolic Pressure 22 mmHg CV PACS Est. RA Pressure 3 mmHg CV PACS Anatomical Region Laterality Modality Ultrasound Narrative 09/26/2024 3:47 PM EDT Left ventricle cavity size is normal. There is moderate hypertrophy. Systolic function is normal with an ejection fraction of 60-65%. LV global longitudal strain is low normal at -17.8%. There are no regional LV wall motion abnormalities. There is Grade I (mild) diastolic dysfunction. Right ventricle cavity is normal. Right ventricular systolic function is normal. Normal atrial size. Aortic valve leaflets are mildly thickened without stenosis. Mild aortic valve regurgitation. Right ventricular systolic function is normal at 22 mmHg. Left Ventricle Left ventricle cavity size is normal. There is moderate hypertrophy. Systolic function is normal with an ejection fraction of 60-65%. LV global longitudal strain is normal. Global longitudinal strain is -17.8%. There are no regional LV wall motion abnormalities. There is Grade I (mild) diastolic dysfunction. Right Ventricle Right ventricle cavity appears normal. Systolic function is normal. Left Atrium Left atrium volume index is mildly increased. There is atrial septal bowing. Right Atrium Right atrium cavity is normal. IVC/SVC RA pressures is estimated to be 3 mmHg (IVC diameter <21 mm and decreases >50% during inspiration). Mitral Valve The leaflets are mildly thickened. There is mild annular calcification. There is trace regurgitation. There is no evidence of mitral valve stenosis. Tricuspid Valve The leaflets exhibit normal excursion. There is mild regurgitation. The RVSP is estimated at 22 mmHg. Aortic Valve The aortic valve is trileaflet. The leaflets are mildly thickened. There is sclerosis. There is mild regurgitation. The mean gradient is 6 mmHg. Pulmonic Valve Visualized portions of the pulmonic valve appear normal. There is trace pulmonic valve regurgitation. Ascending Aorta The ascending aorta is (3.7 cm). Pericardium There is an fat pad. Study Details Overall the study quality was adequate. Additional technique includes myocardial strain. us Laurita Hernandez NP CV ECHO PROCEDURES Final Result * RI ARTHROCENTESIS/ASPIRATION/INJECTION MAJOR JOINT/BURSA W/O U/S GUIDANCE (09/16/2024 3:00 PM EDT) Jaime Andino PA - 09/16/2024 3:00 PM EDT HA Arthur 09/16/2024 3:24 PM L Inj/Asp: R knee Indications: pain Details: 22 G needle, anterolateral approach Medications: 4 mL lidocaine 1 %; 80 mg methylPREDNISolone acetate 80 mg/mL Outcome: tolerated well, no immediate complications Informed Consent: Site: Knee Laterality: Right Relevant images/test results available and reviewed: yes Health status cleared: Yes Procedure/treatment, purpose, treatment alternatives, risks/potential complications and benefits explained: yes Risk/complications/benefits details: Risks include but are not limited to: The treatment may not accomplish the desired results. Additionally bleeding, infection, damage to tendon, nerve, cartilage, muscle; thinning or lightening of the skin in the area of injection; flushing or redness of the face, elevated blood pressure or blood sugar, allergic reaction, rash, increased pain Benefits include relief of inflammation and pain Patient questions answered: yes Patient agrees, verbalizes understanding, and wants to proceed: yes Consent given by: Patient Informed consent discussion completed by Physician/DAVEY with patient: Verbal Pre-procedure timeout performed: yes us Jaime BONNER IN CLINIC/BEDSIDE ORDERABLES Fin al Result * Urine Albumin Creatinine Ratio (01/07/2024) Urine Albumin Creatinine Ratio Abstracted us Historical Provider HEALTH MAINTENANCE Final Result * Annual BMP Blood Test (01/07/2024) Pathologist [facility] Annual BMP Blood Test Abstracted Result [facility] Provider HEALTH MAINTENANCE Final Result * (ABNORMAL) Hemoglobin A1c (01/07/2024) [facility] Hemoglobin A1C 7.0(A) <=6.5 % Blood Venous blood specimen / Unknown Result [facility] Provider LAB BLOOD ORDERABLES Ila l Result * (ABNORMAL) Lipid panel (01/07/2024) [facility] LDL/HDL Ratio 3 0 - 4 Triglycerides 152(A) 0 - 150 mg/dL Cholesterol 167 0 - 200 mg/dL HDL 59 >=40 mg/dL LDL Cholesterol 78 0 - 100 mg/dL Blood Venous blood specimen / Unknown Result [facility] LAB BLOOD ORDERABLES Ila l Result * Diabetes Foot Exam (01/01/2024) [facility] Diabetes: Annual Foot Exam Abstracted Result [facility] Provider HEALTH MAINTENANCE Final Result * Falls Risk Assessment (07/17/2023) [facility] Falls Risk Assessment Abstracted Result [facility] Provider HEALTH MAINTENANCE Final Result * Depression Screening (02/12/2023) [facility] Depression Screening Abstracted Result [facility] Provider HEALTH MAINTENANCE Final Result * Hepatitis C Screening (05/18/2020) [facility] Hepatitis C Screening Abstracted Result [facility] Provider HEALTH MAINTENANCE Final Result from Last 3 Months or Most Recently Relevant to Health Maintenance Insurance [employer] MED[employer] Member Subscriber Plan / Payer (Ef fective 2020-Present) Name:JENNIFER CASILLAS Relation to Subscriber:Self Name:Jennifer Casillas Payer ID:[id number] Group ID:[id number] Type:Not on file Address: [place] [address] [place] [address] Care Teams Electrical Design Engineer Relationship Specialty Start Date End Date Tegan Driscoll MD [address] [place] [id number] PCP - General Internal Medicine 11/01/21
[2024-11-17 18:38] LABS: Sodium 142 mmol/L (135-145)
[2024-11-17 18:39] LABS: Anion Gap 16 (12-20); Blood Urea Nitrogen 42 mg/dL (9-16); Calcium 9.1 mg/dL (8.4-10.2); Carbon Dioxide 26 mmol/L (22-29); Chloride 103 mmol/L (96-108); Estimated Glomerular Filt Rate 19
[2024-11-17 18:59] LABS: Potassium 2.8 mmol/L (3.3-5.1)
== END 2024-11-17 11:22 | disposition home or self-care (01) ==
LOC: HO.HKASLDS 11:21
PROVIDERS: Visit Provider Internal Medicine Nephrology
DX: E11.22 Type 2 diabetes mellitus with diabetic chronic kidney disease (principal); I12.9 Hypertensive chronic kidney disease with stage 1 through stage 4 chronic kidney disease, or unspecified chronic kidney disease; N18.32 Chronic kidney disease, stage 3b; E11.21 Type 2 diabetes mellitus with diabetic nephropathy
CPT/HCPCS: 36415; 80051; 82310; 82565; 84520

== ENCOUNTER 2024-11-18 09:22 | Outpatient (AMB) | payer OTHER, SELFPAY ==
--- NOTE | 2024-11-18 09:31 | HO.NEPHOV ---
Vital Signs 11/18/24 09:41 Height 5 ft 1 in Weight 127 lb 4 oz BMI 24.0 BP 156/60 H Blood Pressure Location Rt brachial Position Sitting Pulse 83 Pulse Source Pulse Oximeter Pulse Oximetry (%) 98 Oxygen Delivery Method Room Air Intake Visit Reasons: 4 MO FU Credit Risk Analytics Manager Required: Yes Credit Risk Analytics Manager Language: Storage Solutions Architect Services: Credit Risk Analytics Manager Offered & Declined [place] Risk Analytics Manager [place] refused [place] Accompanied by: Daughter Allergies Penicillins Allergy (Verified 11/18/24 09:40) Unknown HPI Comments Details: Deonna was accompanied by her daughter in follow-up for chronic kidney disease and hypertension.She had CVA in the past without residual left side weakness. She denies any headache, visual disturbances, new weakness, chest pain, shortness of breath, proximal nocturnal dyspnea, orthopnea, pedal edema or urinary symptoms. She denies taking nonsteroidal anti-inflammatory medications. Her blood sugar control has been good. Her blood pressure control has been at goal at home. She still is on Plavix. She maintains good hydration. Her recent serum K has been low with serum creatinine of 2.45 PFSH Medical History Hyperlipidemia Renal cell cancer Stroke Chronic kidney disease Essential (primary) hypertension Surgical History History of cholecystectomy History of nephrectomy History of kidney surgery History of knee surgery History of cataract surgery Family History Daughter Hypertension Son Hypertension Social History Alcohol intake: never Patient Tobacco Use Status: Never used Tobacco Review of Systems Const All systems reviewed & are unremarkable except as noted in HPI and below Physical Exam Vital Signs: Last Vital Signs Pulse 83 11/18/24 09:41 BP 156/60 H 11/18/24 09:41 Pulse Ox 98 11/18/24 09:41 Oxygen Delivery Method Room Air 11/18/24 09:41 BMI result Body Mass Index 24.0 Const General: comfortable and no acute distress Orientation/consciousness: patient oriented x3 HEENT Head: Yes normocephalic Mouth: Normal oral and palatal mucosa present Eyes EOM: EOMs intact bilaterally Neck Neck: Yes supple Resp Auscultation: clear to auscultation bilaterally Cardio Jugular venous distension: no JVD Rate: regular rate GI Palpation (GI): Soft to palpation Auscultation: normal bowel sounds General: Yes no CVA tenderness Back/Spine/Pelvis Back: no CVA tenderness Skin General skin exam: no rashes or lesions noted Neuro General: patient oriented x3 and moves all extremities Extrem General: Yes no pedal edema Results Reviewed Nephrology Results: Hgb, (12.0-16.0) 12.6 g/dl 05/07/24 WBC, (4.8-10.8) 7.7 X10*3/uL 05/07/24 Plt Count, (160-400) 308 X10*3/uL 05/07/24 Sodium, (135-145) 142 mmol/L 11/17/24 Potassium, (3.3-5.1) 2.8 mmol/L L* Δ 11/17/24 Chloride, (96-108) 103 mmol/L 11/17/24 Carbon Dioxide, (22-29) 26 mmol/L 11/17/24 BUN, (9-16) 42 mg/dL H 11/17/24 Creatinine, (0.5-1.4) 2.45 mg/dL H 11/17/24 Calcium, (8.4-10.2) 9.1 mg/dL Δ 11/17/24 Assessment & Plan Assessment & Plan (1) CKD (chronic kidney disease) stage 3, GFR 30-59 ml/min: Code(s): N18.30 - Chronic kidney disease, stage 3 unspecified Category: Medical Qualifiers: Chronic kidney disease stage 3 subtype: stage 3b (GFR 30-44) Qualified Code(s): N18.32 - Chronic kidney disease, stage 3b (2) Hypertension: Code(s): I10 - Essential (primary) hypertension Category: Medical Qualifiers: Hypertension type: primary hypertension Qualified Code(s): I10 - Essential (primary) hypertension (3) Diabetic nephropathy associated with type 2 diabetes mellitus: Code(s): E11.21 - Type 2 diabetes mellitus with diabetic nephropathy Category: Medical (4) Hypokalemia: Code(s): E87.6 - Hypokalemia Category: Medical Plan Deonna has longstanding chronic kidney disease and hypertension. She has history of CVA with residual hemiparesis. Her blood pressure control is optimal. Her blood sugars are better. She does not have any orthostatic symptoms. She is on Jardiance 10 mg daily. I started her on KCl for 5 days and increased her Spironolactone to 50 mg daily. She should maintain good hydration, increase activity, keep a low-sodium diet and avoid nonsteroidal anti-inflammatory medications. No LEAN MANAGER issues now except for her residual weakness from her CVA. Follow up blood work ordered. Orders: Orders Blood Urea Nitrogen 6 Weeks E11.21 - Type 2 diabetes mellitus with diabetic nephropathy, E87.6 - Hypokalemia, I10 - Essential (primary) hypertension, N18.32 - Chronic kidney disease, stage 3b Electrolytes 6 Weeks E11.21 - Type 2 diabetes mellitus with diabetic nephropathy, E87.6 - Hypokalemia, I10 - Essential (primary) hypertension, N18.32 - Chronic kidney disease, stage 3b Creatinine 6 Weeks E11.21 - Type 2 diabetes mellitus with diabetic nephropathy, E87.6 - Hypokalemia, I10 - Essential (primary) hypertension, N18.32 - Chronic kidney disease, stage 3b Medications: Changed From potassium chloride ER 10 mEq PO DAILY 10 tabs 0RF To potassium chloride ER 20 mEq PO DAILY 10 tabs 0RF From spironolactone 25 mg PO DAILY 90 tabs 4RF To spironolactone 25 mg (1/2 x 50 mg) PO DAILY 90 tabs 4RF Coding Level of Care Code Est Pt Level 4 (63858) Diagnoses Stage 3b chronic kidney disease N18.32 Chronic kidney disease stage 3 subtype: stage 3b (GFR 30-44) Primary hypertension I10 Hypertension type: primary hypertension Diabetic nephropathy associated with type 2 diabetes mellitus E11.21 Hypokalemia E87.6
[2024-11-18 09:41] VITALS: BP 156/60; PULSE 83; O2SAT 98; BMI 24.0
--- OUTSIDE RECORDS SUMMARY | 2024-11-18 10:26 | XMS_ITS | Clinical Summary ---
Author Organization [facility] [address] [facility] Address [address] [place] [address] Phone Care Team Providers Care Manager Leadership Development Name Role Phone Tegan Driscoll MD Primary [...] Problem Noted Date Diagnosed Date Diabetes mellitus ([facility] V24, [facility] V28) 08/2024 Abnormal EKG 10/10/2022 Overview (01/09/2024): Last Assessment & Plan: Has been chronic. Both stress test and echocardiogram were unremarkable. She has felt well without symptoms to suggest angina or heart failure. We will continue primary prevention. Osteoarthritis of spine with radiculopathy, lumb ar region 06/02/2022 Hyperparathyroidism due to r enal insufficiency ([facility] V24) 05/03/2021 Vitamin D deficiency 05/03/2021 Murmur, [...] type 2 wit h peripheral artery disease ([facility] V24, [facility] V28) 08/06/2018 Overview (01/09/2024): [facility] Cardio - see testing 07/31/18 - stenoses in both lower extremity arteries; 12/2019 multilevel stenoses Peripheral artery disease ([facility] V24) 08/07/19 Overview (01/09/2024): [facility] Card[facility] Last Assessment & Plan: [...] ROSEANNA (obstructive sleep apnea) 02/11/2016 Overview (01/09/2024): [facility] ([facility]). 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) ([facility] V24, [facility] V28) 07/21/2015 Cerebrovascular accident (CV A) involving right middle cerebral artery territory ([facility] V24, [facility] V28) 07/20/2015 Tear, knee, medial meniscus 11/10/2014 Papilledema 02/06/2014 Chest pain 09/29/2013 Overview (01/09/2024): Negative Regadenoson stress test [facility] 08/2013 Last Assessment & [...] 2 diabetes mellitus wit h renal manifestations ([facility] V24[facility] V28) 01/27/2013 Overview (01/09/2024): Last Assessment & Plan: Better control of diabetes. Continue current regimen. See diabetes tube closing machine operator/educator as planned. Return in 3 months with lab tests at least 1 week before next visit. 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 ([facility] V24, [facility] V28) 12/26/2012 Constipation 05/13/2012 Gout 12/01/2011 Overview (01/09/2024): Hyperuricemia, recurrent lower extremity attacks, cystic change in left 1st MTP Rheumatoid factor positive 12/01/2011 Overview (01/09/2024): No obvious synovitis as of 06/12 GERD (gastroesophageal reflux disease) 1 Osteopenia 01/17/2011 Overview (01/09/2024): LS T score -1.6 CKD (chronic kidney disease) , stage III ([facility] V24, [facility] V28) 11/19/2010 Microalbuminuria 11/19/2010 Low back pain [...] Care Team Description 11/17/2024 10:30 AM EDT - 11/17/2024 11:59 PM EDT Hospital Encounter [address] [phone] Subacute cough Discharge Disposition: Home or Self Care 11/17/2024 10:15 AM EDT Office Visit Adult Medicine [address] [phone] Emeli Archer PA Type 2 diabetes mellitus with diabetic microalbuminuria, with long-term current use of insulin (CMS/HCC V24, CMS/HCC V28) (Primary Dx); Microalbuminuria; Primary hypertension; Mixed hyperlipidemia; History of CVA (cerebrovascular accident); Subacute cough; Non-seasonal allergic rhinitis, unspecified trigger 10/31/2024 Telephone Adult Medicine [address] [phone] Tegan Morelos MD Called Patient 09/26/2024 1:30 PM EDT Ancillary Procedure [facility] [address] [place] [id number] Murmur, cardiac 09/16/2024 3:00 PM EDT Office Visit Orthopedics [facility] [address] [place] [address] Jaime Saravia PA Primary osteoarthritis of right knee (Primary Dx) 09/11/2024 9:30 AM EDT Office Visit Vascular Surgery - [place] [address] [place] [phone] Catina Claire PA Peripheral artery disease ([facility] V24) (Primary Dx) from Last 3 Months [...] PROCEDURE: HISTORICAL TUBAL LIGATION KNEE ARTHROSCOPY PROCEDURE: SD ARTHROSCOPY KNEE DIAGNOSTIC W/WO SYNOVIAL BX SPX; COMMENT: right 12/09 CHOLECYSTECTOMY PROCEDURE: HISTORICAL CHOLECYSTECTOMY Medical History Medical History Date Comments DM type 2 (diabetes mellitus , type 2) ([facility] V24, [facility] V28) 11/05/2010 DX:DM type 2 (diabetes claire itus, type 2) ([facility]) Essential hypertension, benign 11/03/2010 D X:Essential [...] wit h renal manifestations not at goal ([facility] V24, [facility] V28) 01/27/2013 DX:Type 2 diabetes mellitus with renal manifestations not at goal ([facility]) CKD (chronic kidney disease) , stage III ([facility] V24, [facility] V28) 11/19/2010 DX:CKD (chronic kidney disease), stage III ([facility]) GERD (gastroesophageal reflux disease) 1 DX:GERD (gastroesophageal reflux disease) Osteopenia 01/17/2011 DX:Osteopenia; C OMMENT: LS T score -1.6 Rheumatoid factor positive 12/01/2011 DX:Rh eumatoid factor positive; COMMENT: No obvious synovitis as of 06/12 Gout 12/01/2011 DX:Gout; COMMENT : Hyperuricemia, recurrent lower extremity attacks, cystic change in left 1st MTP Chest pain 09/29/2013 DX:Chest pain; C OMMENT: Negative Regadenoson stress test [facility] 08/2013 Abnormal US (ultrasound) [...] as late effect of cerebrovascular accident (CVA) ([facility]) Sleep apnea in adult 02/11/2016 DX:Sleep ap clair in adult; COMMENT: [facility] ([facility]). Compliant with CPAP Abnormal echocardiogram 06/12/2018 [...] 11/21/2024 2:10 PM EDT Appointment Radiology Department [address] [phone] 02/17/2025 9:45 AM EST Office Visit Adult Medicine [address] [phone] eTgan Driscoll MD [address] [place] [phone] 08/13/2025 12:00 PM EDT Ancillary Procedure [facility] [address] [place] [address] 09/14/2025 9:30 AM EDT Office Visit Vascular Surgery - [place] [address] [place] [phone] Catina Claire PA [address] [facility] [address] [place] [address] Health Maintenance Due Date Last Done Comments [...] Routine 09/26/2024 2:14 PM EDT Murmur, cardiac SD ARTHROCENTESIS/ASPIRAT ION/INJECTION MAJOR JOINT/BURSA W/O U/S GUIDANCE [...] Signed Date: 11/17/2024 11:41 ET Workstation ID: [id number] Transcribed By: Self Edit Transcribed Date: 11/17/2024 [...] Signed Date: 11/17/2024 11:41 ET Workstation ID: [id number] Transcribed By: Self Edit Transcribed Date: 11/17/2024 11:39 ET Emeli Gianni BONNER IMG XR PROCEDURES Final Result * (ABNORMAL) [...] S' 10 cm/s CV PACS RA Major [place] 4.4 cm CV PACS RA Major [place] Index 2.8 2.2 - 2.8 cm/m2 CV [...] was adequate. Additional technique includes myocardial strain. Laurita Hernandez NP CV ECHO PROCEDURES Final Result * SD ARTHROCENTESIS/ASPIRATION/INJECTION MAJOR JOINT/BURSA W/O U/S GUIDANCE (09/16/2024 [...] with patient: Verbal Pre-procedure timeout performed: yes Jaime BONNER IN CLINIC/BEDSIDE ORDERABLES Fin al Result * HM Urine Albumin Creatinine Ratio (01/07/2024) [facility] Urine Albumin Creatinine Ratio Abstracted Result [facility] Provider HEALTH MAINTENANCE Final Result * Annual BMP Blood Test (01/07/2024) [facility] Annual BMP Blood Test Abstracted Result [facility] [employer] Provider HEALTH MAINTENANCE Final Result * (ABNORMAL) Hemoglobin A1c (01/07/2024) [facility] Hemoglobin A1C 7.0(A) <=6.5 % Blood Venous blood specimen / Unknown Result [facility] Provider LAB BLOOD ORDERABLES Ila l Result * (ABNORMAL) Lipid panel (01/07/2024) [facility] LDL/HDL Ratio 3 0 - 4 Triglycerides 152(A) 0 - 150 mg/dL Cholesterol 167 0 - 200 mg/dL HDL 59 >=40 mg/dL LDL Cholesterol 78 0 - 100 mg/dL Blood Venous blood specimen / Unknown Result [facility] [employer] Provider LAB BLOOD ORDERABLES Ila l Result * Diabetes Foot Exam (01/01/2024) [facility] Diabetes: Annual Foot Exam Abstracted Result [facility] [employer] Provider HEALTH MAINTENANCE Final Result * Falls Risk Assessment (07/17/2023) [facility] Falls Risk Assessment Abstracted Result [facility] [employer] Provider HEALTH MAINTENANCE Final Result * Depression Screening (02/12/2023) [facility] Depression Screening Abstracted Result [facility] [employer] Provider HEALTH MAINTENANCE Final Result * Hepatitis C Screening (05/18/2020) [facility] Hepatitis C Screening Abstracted Result [facility] [employer] Provider HEALTH MAINTENANCE Final Result from Last 3 Months or Most Recently Relevant to Health Maintenance Insurance [facility] MEDIC[facility] Member Subscriber Plan / Payer (Ef fective 2020-Present) Name:JENNIFER ESCOBAR Relation to Subscriber:Self Name:Jennifer Escobar Payer ID:[id number] Group ID:[id number] Type:Not on file Address: [place] [address] [place] [address] Care Teams Manager Leadership Development Relationship Specialty Start Date End Date Tegan Driscoll MD [address] [place] [address] PCP - General Internal Medicine 11/01/21
--- OUTSIDE RECORDS SUMMARY | 2024-11-18 10:26 | XMS_ITS | Clinical Summary ---
Author Organization [facility] Address [address] [facility] [address] [place] [address] Phone Care Team Providers Care Machine Joiner Cementer Name Role Phone Marissa Bray CNP Primary Care Provider [phone] Allergies Active Allergy Reactions Criticality Noted Date [...] a day 1 Active Deep Sea Nasal [place] 0.65 % nasal spray Administer 1 spray [...] Peripheral vascular disease 08/06/2018 08/20/2020 Overview (05/24/2020): [facility] Cardio Abnormal echocardiogram 06/12/201808/01 Obstructive sleep apnea syndrome 02/11/2016 08/20/2020 Overview (05/24/2020): [facility] ([facility]). Compliant with CPAP Hemiparesis as late effect o f cerebrovascular accident 07/21/2015 08/20/2020 Right sided cerebral hemisph ere cerebrovascular accident 07/20/2015 08/20/2020 Tear of medial meniscus of knee 11/10/2014 08/20/2020 Papilledema 02/06/2014 08/20/2020 Hyperparathyroidism 12/16/2013 08/21/19 Chest pain 09/29/2013 08/20/2020 Overview (05/24/2020): Negative Regadenoson stress test [facility] Cardiology 08/2013 Type 2 diabetes mellitus 12/26/2012 Overview (05/24/2020): Last Assessment & Plan: Better control of diabetes. Continue current regimen. See diabetes overhauler helper/educator as planned. Return in 3 months with lab tests at least 1 week before next visit. [facility] Cardio - see testing 07/31/18 - [...] complete this topic Insurance ([id number]) [place] [id number] ([id number]) Care Teams Machine Joiner Cementer Relationship Specialty Start Date End Date Marissa Bray CNP PCP - General Nurse Practitioner 04/18/22
--- OUTSIDE RECORDS SUMMARY | 2024-11-18 10:26 | XMS_ITS | Clinical Summary ---
Author Organization [facility] Address [address] [place] [address] Care Team Providers Care Quantitative Strategy Analyst Name Role Phone Tegan Johnson MD Primary [...] age to complete this topic Care Teams Quantitative Strategy Analyst Relationship Specialty Start Date End Date Tegan Johnson MD [address] [place] [address] PCP - General Internal Medicine 07/31/23
== END 2024-11-18 10:02 | disposition home or self-care (01) ==
LOC: HO.HKAS 09:23
PROVIDERS: PCP Internal Medicine; Visit Provider Internal Medicine Nephrology
DX: N18.32 Chronic kidney disease, stage 3b (principal); I10 Essential (primary) hypertension; E11.21 Type 2 diabetes mellitus with diabetic nephropathy; E87.6 Hypokalemia
CPT/HCPCS: 99214

== ENCOUNTER → 2024-11-18 09:22 | Outpatient (BNVA) | payer OTHER, SELFPAY | PROVIDERS: PCP Internal Medicine; Visit Provider Internal Medicine Nephrology | DX: N18.32 Chronic kidney disease, stage 3b (principal); I10 Essential (primary) hypertension; E11.21 Type 2 diabetes mellitus with diabetic nephropathy; E87.6 Hypokalemia | CPT/HCPCS: 99212 ==

== ENCOUNTER 2024-12-05 08:49 | Outpatient (REF) | payer OTHER, SELFPAY ==
--- OUTSIDE RECORDS SUMMARY | 2024-12-05 09:21 | XMS_ITS | Clinical Summary ---
Author Organization [facility] Address [address] [facility] [address] [place] [address] Phone Care Team Providers Care Natural Fabricator Name Role Phone Marissa Bray CNP Primary Care Provider [phone] Allergies Active Allergy Reactions Criticality Noted Date [...] a day 1 Active Deep Sea Nasal [place] 0.65 % nasal spray Administer 1 spray [...] Peripheral vascular disease 08/06/2018 08/20/2020 Overview (05/24/2020): [facility] Cardio Abnormal echocardiogram 06/12/201808/01 Obstructive sleep apnea syndrome 02/11/2016 08/20/2020 Overview (05/24/2020): [facility] ([facility]). Compliant with CPAP Hemiparesis as late effect o f cerebrovascular accident 07/21/2015 08/20/2020 Right sided cerebral hemisph ere cerebrovascular accident 07/20/2015 08/20/2020 Tear of medial meniscus of knee 11/10/2014 08/20/2020 Papilledema 02/06/2014 08/20/2020 Hyperparathyroidism 12/16/2013 08/21/19 Chest pain 09/29/2013 08/20/2020 Overview (05/24/2020): Negative Regadenoson stress test [facility] Cardiology 08/2013 Type 2 diabetes mellitus 12/26/2012 Overview (05/24/2020): Last Assessment & Plan: Better control of diabetes. Continue current regimen. See diabetes wireless sales representative/educator as planned. Return in 3 months with lab tests at least 1 week before next visit. [facility] Cardio - see testing 07/31/18 [...] complete this topic Insurance ([id number]) [place] [phone] ([id number]) Care Teams Natural Fabricator Relationship Specialty Start Date End Date Marissa Bray CNP PCP - General Nurse Practitioner 04/18/22
--- OUTSIDE RECORDS SUMMARY | 2024-12-05 09:21 | XMS_ITS | Clinical Summary ---
Author Organization [facility] Address [address] [place] [address] Care Team Providers Care Fast Food Supervisor Name Role Phone Tegan Johnson MD Primary [...] age to complete this topic Care Teams Fast Food Supervisor Relationship Specialty Start Date End Date Tegan Johnson MD [address] [place] [address] PCP - General Internal Medicine 07/31/23
--- OUTSIDE RECORDS SUMMARY | 2024-12-05 09:21 | XMS_ITS | Clinical Summary ---
Author Organization [facility] [address] [facility] Address [address] [place] [address] Phone Care Team Providers Care Biophysics Professor Name Role Phone Tegan Driscoll MD Primary [...] meals. 45 mL 1 11/18/19 25 Active insulin glargine (Lantus Solostar U-100 Insulin) 100 unit/mL (3 mL) injection pen Inject 10 Units as directed at bedtime. 07/11/19 025 Discontinued pen needle, diabetic 32 gauge [...] week. 2 mL 2 04/24/19 025 Discontinued potassium chloride (KLOR-CON M10) 10 mEq CR tablet Take 1 tablet (10 mEq total) by mouth 1 (one) time each day for 7 days. Tablet may be swallowed whole (do not crush/chew/quintero ck on) OR broken in half and each half swallowed separately OR dissolved (whole tablet) in ~4 ounces of water (allow ~2 minutes to dissolve, stir well and administer immediately). 7 each 11/20/19 025 Active Problems Problem Noted Date Diagnosed Date Diabetes mellitus ([facility] V24, [facility] V28) 08/2024 Abnormal EKG 10/10/2022 Overview (01/09/2024): Last Assessment & Plan: Has been chronic. Both stress test and echocardiogram were unremarkable. She has felt well without symptoms to suggest angina or heart failure. We will continue primary prevention. Osteoarthritis of spine with radiculopathy, lumb ar region 06/02/2022 Hyperparathyroidism due to r enal insufficiency ([facility] V24) 05/03/2021 Vitamin D deficiency [...] type 2 wit h peripheral artery disease ([facility] V24, [facility] V28) 08/06/2018 Overview (01/09/2024): [facility] Cardio - see testing 07/31/18 - stenoses in both lower extremity arteries; 12/2019 multilevel stenoses Peripheral artery disease ([facility] V24) 08/07/19 Overview (01/09/2024): [facility]io Last Assessment & Plan: Overall, [...] ROSEANNA (obstructive sleep apnea) 02/11/2016 Overview (01/09/2024): [facility] ([facility]). 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) ([facility] V24, [facility] V28) 07/21/2015 Cerebrovascular accident (CV A) involving right middle cerebral artery territory ([facility] V24, [facility] V28) 07/20/2015 Tear, knee, medial meniscus 11/10/2014 Papilledema 02/06/2014 Chest pain 09/29/2013 Overview (01/09/2024): Negative Regadenoson stress test [facility]iology 08/2013 Last Assessment & Plan: [...] 2 diabetes mellitus wit h renal manifestations ([facility] V24, [facility] V28) 01/27/2013 Overview (01/09/2024): Last Assessment & Plan: Better control of diabetes. Continue current regimen. See diabetes director payer/educator as planned. Return in 3 months with lab tests at least 1 week before next visit. 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 ([facility] V24, [facility] V28) 12/26/2012 Constipation 05/13/2012 Gout 12/01/2011 Overview (01/09/2024): Hyperuricemia, recurrent lower extremity attacks, cystic change in left 1st MTP Rheumatoid factor positive 12/01/2011 Overview (01/09/2024): No obvious synovitis as of 06/12 GERD (gastroesophageal reflux disease) 1 Osteopenia 01/17/2011 Overview (01/09/2024): LS T score -1.6 CKD (chronic kidney disease) , stage III ([facility] V24, [facility]/HCC V28) 11/19/2010 Microalbuminuria 11/19/2010 Low back pain [...] Encounters Date Type Department Care Team Description 11/21/2024 1:40 PM EDT - 11/21/2024 11:59 PM EDT Hospital Encounter Radiology Department - [place] [address] [place] [phone] Encounter for screening mammogram for breast cancer Discharge Disposition: Home or Self Care 11/18/2024 Telephone [facility] - [address] [place] [address] An Hess MA 11/17/2024 10:30 AM EDT - 11/17/2024 11:59 PM EDT Hospital Encounter XRAY - [place] [address] [place] [address] Subacute cough Discharge Disposition: Home or Self Care 11/17/2024 10:15 AM EDT Office Visit Adult Medicine [address] [phone] Emeli Archer PA Type 2 diabetes mellitus with diabetic microalbuminuria, with long-term current use of insulin ([facility] V24, [facility] V28) (Primary Dx); Microalbuminuria; Primary hypertension; Mixed hyperlipidemia; History of CVA (cerebrovascular accident); Subacute cough; Non-seasonal allergic rhinitis, unspecified trigger; Low serum potassium 10/31/2024 Telephone Adult [address] [phone] Tegan Morelos MD 09/26/2024 1:30 PM EDT Ancillary Procedure [facility] - [address] [place] [address] Murmur, cardiac 09/16/2024 3:00 PM EDT Office Visit Orthopedics - [address] [phone] Jaime Saravia PA Primary osteoarthritis of right knee (Primary Dx) 09/11/2024 9:30 AM EDT Office Visit Vascular Surgery - [place] [address] [place] [phone] Catina Claire PA Peripheral artery disease ([facility] V24) (Primary Dx) from Last 3 Months [...] PROCEDURE: HISTORICAL TUBAL LIGATION KNEE ARTHROSCOPY PROCEDURE: ID ARTHROSCOPY KNEE DIAGNOSTIC W/WO SYNOVIAL BX SPX; COMMENT: right 12/09 CHOLECYSTECTOMY PROCEDURE: HISTORICAL CHOLECYSTECTOMY Medical History Medical History Date Comments DM type 2 (diabetes mellitus , type 2) ([facility] V24, [facility] V28) 11/05/2010 DX:DM type 2 (diabetes claire itus, type 2) ([facility]) Essential hypertension, benign 11/03/2010 D [...] wit h renal manifestations not at goal ([facility] V24, [facility] V28) 01/27/2013 DX:Type 2 diabetes mellitus with renal manifestations not at goal (HCC) CKD (chronic kidney disease) , stage III ([facility] V24, [facility] V28) 11/19/2010 DX:CKD (chronic kidney [...] pain; C OMMENT: Negative Regadenoson stress test [facility] 08/2013 Abnormal US (ultrasound) of abdomen 10/31/2013 DX:Abnormal US (ultrasound) of abdomen; COMMENT: [facility] 10/22/13 - 1.3x1.4x1.9 cm masslike thickening of GB fundus, suspect adenomyosis, recommend surgical f/u Papilledema 02/06/2014 DX:Papilledema Tear, knee, medial meniscus 11/10/2014 DX:T ear, knee, medial meniscus Hyperlipidemia with target L DL less than 100 11/03/2010 DX:Hyperlipidemia with targe t LDL less than 100; COMMENT: O update Noncompliance with medicatio n treatment due [...] A) involving right middle cerebral artery territory ([facility] V24, [facility] V28) 07/20/2015 DX:Cerebrovascula r accident (CVA) involving right middle cerebral artery territory (HCC) Hemiparesis affecting left 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 Compliant with CPAP Abnormal echocardiogram 06/12/2018 [...] SAB Ectopic Multiple Livin g Live Births 5 5 5 5 Date Outcome GA Total Labor Labor/2nd/3rd Weight Sex Type Anes PTL Gwen A1 A5 Name Clin Term Term Term Term Term Last Filed [...] Care Team (Late st Contact Info) Description 02/17/2025 9:45 AM EST Office Visit Adult Medicine [facility] [address] [place], [place] [phone] Tegan Driscoll MD [address] [place], [place] 08/13/2025 12:00 PM EDT Ancillary Procedure [facility] - [facility] [address] [place] [phone] 09/14/2025 9:30 AM EDT Office Visit Vascular Surgery - [place] [address] [place] [phone] Catina Claire PA [address] [place] [phone] Health Maintenance Due Date Last Done Comments Diabetes: Annual Retina Eye Exam 10/05/1955 Zoster Vaccines (1 of 2) 1964 RSV Immunization Adult Patients (1 - 1-dose 75+ series) 2020 Osteoporosis Screening (Bone Density Screening) 03/11/2022 Social Influencers of Health Screening 03/11/2022 Medicare Annual Wellness Visit 02/13/2024 02/12/2023 Depression Screening 04/02/2024 02/12/2023 Falls Risk Assessment 07/16/2024 07/17/2023 COVID-19 Vaccine ( season) 2024 11/23/2021, 03/21/2021, 09/23/2020, Additional history exists Influenza Vaccine (#1) 2024 , 02/12/2023, 01/26/2022, Additional history exists Diabetes: Annual Foot Exam 12/31/2024 01/01/2024 Diabetes: Annual Urine Albumin-Creatinine Ratio (uACR) 01/06/2025 01/07/2024 Diabetes: Blood Sugar Control Test (HGBA1C) 05/21/2025 11/18/2024, 01/07/2024, 01/07/2024 Diabetes: Annual GFR (Glomerular Filtration Rate) 11/18/2025 11/18/2024, 01/07/2024, 01/07/2024 Hypertension/CHF/CAD Annual BMP Blood Test 11/18/2025 11/18/2024, 01/07/2024, 01/07/2024 Cholesterol Screening (Lipid Panel) 11/18/2029 11/18/2024, 01/07/2024, 01/07/2024 DTaP,Tdap,and Td Vaccines (4 - [...] Procedure Name Priority Date/Time Associated Diagnosis Comments MG MAMMO DIGITAL SCREENING W BLAIR BILAT Routine 11/21/2024 1:57 PM EDT Encounter for screening mammogram for breast cancer CBC WITH AUTO DIFFERENTIAL Routine 11/18/2024 8:36 AM EDT Hx of iron deficiency anemia CBC AND DIFFERENTIAL Routine 11/18/2024 8:36 AM EDT Hx of iron deficiency anemia COMPREHENSIVE METABOLIC PANEL Routine 11/18/2024 8:36 AM EDT Type 2 diabetes mellitus with diabetic microalbuminuria, with long-term current use of insulin ([facility]/HCC V24, [facility]/HCC V28) HEMOGLOBIN A1C Routine 11/18/2024 8:36 AM EDT Type 2 diabetes mellitus with diabetic microalbuminuria, with long-term current use of insulin (CMS/HCC V24, [facility] V28) LIPID PANEL WITH REFLEX TO DIRECT LDL Routine 11/18/2024 8:36 AM EDT Mixed hyperlipidemia XR CHEST 2 VIEWS Routine 11/17/2024 10:4 8 AM EDT Subacute cough TRANSTHORACIC ECHOCARDIOGRAM (TTE) COMPLETE Routine 09/26/2024 2:14 PM EDT Murmur, cardiac ID ARTHROCENTESIS/ASPIRAT ION/INJECTION MAJOR JOINT/BURSA W/O U/S GUIDANCE Routine 09/16/2024 3:00 PM EDT Primary osteoarthritis of right knee URINE ALBUMIN CREATININE RATIO Routine 01/07/2024 DIABETES FOOT EXAM Routine 01/01/2024 FALLS RISK ASSESSMENT Routine 07/17/2023 DEPRESSION SCREENING Routine 02/12/2023 HEPATITIS C SCREENING Routine 05/18/2020 from Last 3 Months or Most Recently Relevant to Health Maintenance Results * MG Mammo Digital Screening w Blair bilat (11/21/2024 1:57 PM EDT) Anatomical Region Laterality Modality Breast Bilateral Mammography 11/24/2024 6:26 PM EDT Impressions 11/24/2024 6:32 PM EDT 1. No mammographic evidence of malignancy 2. Scattered fibroglandular tissue BI-RADS CATEGORY: 2 - BENIGN RECOMMENDATION: Screening bilateral mammogram is recommended in 1 year. Mammo Location: [place] [facility], [address] [place] [address], [id number], . -------- FINAL REPORT -------- Dictated By: Yonny Keene Dictated Date: 11/24/2024 18:26 ET Assigned Physician: Yonny Keene Reviewed and Electronically Signed By: Yonny Keene Signed Date: 11/24/2024 18:32 ET Workstation ID: [id number] Transcribed By: Self Edit Transcribed Date: 11/24/2024 18:26 ET Narrative 11/24/2024 6:32 PM EDT A BILATERAL DIGITAL 3D SCREENING MAMMOGRAPHY HISTORY: Routine screening. No family history of breast cancer. COMPARISON: Multiple priors dating back to 04/21/2020 Technique: Bilateral full field digital mammography (3D) was performed using standard CC and MLO projections , left breast exaggerated CC view CAD was used to evaluate this mammogram. FINDINGS: Right: No suspicious masses, groups of microcalcification or areas of architectural distortion identified. Stable typically benign parenchymal asymmetries. Left: No suspicious masses, groups of microcalcification or areas of architectural distortion identified. Stable typically benign parenchymal asymmetries. BREAST DENSITY: B - There are scattered areas of fibroglandular density. Procedure Note Yonny Keene MD - 11/24/2024 A BILATERAL DIGITAL 3D SCREENING MAMMOGRAPHY HISTORY: Routine screening. No family history of breast cancer. COMPARISON: Multiple priors dating back to 04/21/2020 Technique: Bilateral full field digital mammography (3D) was performedusing standard CC and MLO projections , left breast exaggerated CC view CAD was used to evaluate this mammogram. FINDINGS: Right: No suspicious masses, groups of microcalcification or areas ofarchitectural distortion identified. Stable typically benign parenchymalasymmetries. Left: No suspicious masses, groups of microcalcification or areas ofarchitectural distortion identified. Stable typically benign parenchymalasymmetries. BREAST DENSITY: B - There are scattered areas of fibroglandular density. IMPRESSION: 1. No mammographic evidence of malignancy 2. Scattered fibroglandular tissue BI-RADS CATEGORY: 2 - BENIGN RECOMMENDATION: Screening bilateral mammogram is recommended in 1 year. Mammo Location: [facility], [address] [place] [address], [address], . -------- FINAL REPORT -------- Dictated By: Yonny Keene Dictated Date: 11/24/2024 18:26 ET Assigned Physician: Yonny Keene Reviewed and Electronically Signed By: Yonny Keene Signed Date: 11/24/2024 18:32 ET Workstation ID: [id number] Transcribed By: Self Edit Transcribed Date: 11/24/2024 18:26 ET us Tegan Driscoll MD IMG BI PROCEDURES Final Result * (ABNORMAL) Lipid panel with reflex to direct LDL (11/18/2024 8:36 AM EDT) Cholesterol 229(H) 0 - 200 mg/dL LAB CHEMISTRY METHOD 11/18/2024 11:26 AM [facility] Triglycerides 277(H) 0 - 150 mg/dL LAB CHEMISTRY METHOD 11/18/2024 11:26 AM [facility] HDL 59 >=40 mg/dL LAB CHEMISTRY METHOD 11/18/2024 11:26 AM [facility] LDL Calculated 115(H) 0 - 100 mg/dL LAB CHEMISTRY METHOD 11/18/2024 11:26 AM [facility] Comment:Estimated LDL Calcul ated using equation: Total cholesterol - HDL cholesterol - (Triglycerides/5) VLDL Cholesterol Theodore 55.4 mg/dL LAB CHEMISTRY METHOD 11/18/2024 11:26 AM [facility] Non HDL Chol. (LDL+VLDL) 170(H) <145 mg/dL LAB CHEMISTRY METHOD 11/18/2024 11:26 AM [facility] Chol/HDL Ratio 3.9 0.0 - 4.4 LAB CHEMISTRY METHOD 11/18/2024 11:26 AM [facility] Blood Venous blood specimen / Unknown Venipuncture / Unknown 11/18/2024 8:36 AM EDT 11/18/2024 8:36 AM EDT us Laurita Hernandez NP LAB BLOOD ORDERABLES Final Resu lt [facility] [address] [place] [address], * (ABNORMAL) CBC auto differential (11/18/2024 8:36 AM EDT) WBC 8.5 4.8 - 10.8 K/mcL LAB HEMETOLOGY METHOD 11/18/2024 11:14 AM EDT [facility] RBC 4.70 3.80 - 4.80 M/mcL LAB HEMETOLOGY METHOD 11/18/2024 11:14 AM [facility] Hemoglobin 12.5 11.5 - 16.0 g/dL LAB HEMETOLOGY METHOD 11/18/2024 11:14 AM EDT [facility] Hematocrit 38.4 35.0 - 47.0 % LAB HEMETOLOGY METHOD 11/18/2024 11:14 AM T [facility] MCV 82.1 79.0 - 98.0 FL LAB HEMETOLOGY METHOD 11/18/2024 11:14 AM [facility] MCH 26.7(L) 27.0 - 32.0 pcg LAB HEMETOLOGY METHOD 11/18/2024 11:14 AM EDT [facility] MCHC 32.6 32.0 - 37.0 g/dL LAB HEMETOLOGY METHOD 11/18/2024 11:14 AM EDT [facility] RDW 13.2 11.0 - 15.0 % LAB HEMETOLOGY METHOD 11/18/2024 11:14 AM [facility] Platelets 302 130 - 400 K/mcL LAB HEMETOLOGY METHOD 11/18/2024 11:14 AM T [facility] MPV 10.4 7.0 - 11.0 FL LAB HEMETOLOGY METHOD 11[facility]18[facility]24 [facility] NRBC 0.0 <1.0 % LAB HEMETOLOGY METHOD 11/18/2024 11:14 AM [facility] NRBC Absolute 0.00 <0.10 K/mcL LAB HEMETOLOGY METHOD 11/18/2024 11:14 AM [facility] Neutrophils Relative 68.4 % LAB HEMETOLOGY METHOD 11/18/2024 11:14 AM [facility] Lymphocytes Relative 20.3 % LAB HEMETOLOGY METHOD 11/18/2024 11:14 AM [facility] Monocytes Relative 4.8 % LAB HEMETOLOGY METHOD 11/18/2024 11:14 AM [facility] Eosinophils Relative 5.6 % LAB HEMETOLOGY METHOD 11/18/2024 11:14 AM [facility] Basophils Relative 0.5 % LAB HEMETOLOGY METHOD 11/18/2024 11:14 AM [facility] Immature Granulocytes Relative 0.4 % LAB HEMETOLOGY METHOD 11/18/2024 11:14 AM [facility] Neutrophils Absolute 5.84 1.50 - 7.00 K/mcL LAB HEMETOLOGY METHOD 11/18/2024 11:14 AM [facility] Lymphocytes Absolute 1.73 1.00 - 5.00 K/mcL LAB HEMETOLOGY METHOD 11/18/2024 11:14 AM [facility] Monocytes Absolute 0.41 0.20 - 1.00 K/mcL LAB HEMETOLOGY METHOD 11/18/2024 11:14 AM [facility] Eosinophils Absolute 0.48 0.00 - 0.50 K/mcL LAB HEMETOLOGY METHOD 11/18/2024 11:14 AM EDT [facility] Basophils Absolute 0.04 0.00 - 0.20 K/[facility] LAB HEMETOLOGY METHOD 11/18/2024 11:14 AM EDT [facility] Immature Granulocytes Absolute 0.03 0.00 - 0.03 K/[facility] LAB HEMETOLOGY METHOD 11/18/2024 11:14 AM EDT [facility] Blood Venous blood specimen / Unknown Venipuncture / Unknown 11/18/2024 8:36 AM EDT 11/18/2024 8:36 AM EDT Isaura Khoury MD LAB BLOOD ORDERABLES Fi nal Result Performing Organization Address [facility]/ZIP Co de Phone Number [facility] [address] [place] [address], [place] [phone] * (ABNORMAL) Hemoglobin A1c (11/18/2024 8:36 AM EDT) Hemoglobin A1C 7.6(H) <6.5 % LAB CHEMISTRY METHOD 11/18/2024 12:28 PM EDT [facility] Mean Bld Glu Estim. 171 mg/dL LAB CHEMISTRY METHOD 11/18/2024 12:28 PM EDT [facility] Blood Venous blood specimen / Unknown Venipuncture / Unknown 11/18/2024 8:36 AM EDT 11/18/2024 8:36 AM EDT us Emeli BONNER LAB BLOOD ORDERABLES Final Resul t [facility] [address] [place] [address], [place] [phone] * (ABNORMAL) Comprehensive metabolic panel (11/18/2024 8:36 AM EDT) Sodium 140 133 - 145 mmol/L LAB CHEMISTRY METHOD 11/18/2024 11:26 AM [facility] Potassium 3.2(L) 3.5 - 5.5 mmol/L LAB CHEMISTRY METHOD 11/18/2024 11:26 AM [facility] Chloride 104 96 - 110 mmol/L LAB CHEMISTRY METHOD 11/18/2024 11:26 AM [facility] CO2 31 21 - 32 mmol/L LAB CHEMISTRY METHOD 11/18/2024 11:26 AM [facility] Anion Gap 5 3 - 11 LAB CHEMISTRY METHOD 11/18/2024 11:26 AM [facility] Glucose 130(H) 70 - 100 mg/dL LAB CHEMISTRY METHOD 11/18/2024 11:26 AM [facility] BUN 39(H) 5 - 25 mg/dL LAB CHEMISTRY METHOD 11/18/2024 11:26 AM [facility] Creatinine 2.28(H) 0.50 - 1.10 mg/dL LAB CHEMISTRY METHOD 11/18/2024 11:26 AM [facility] eGFR 21(L) >=60 mL/min/1. 73m2 LAB CHEMISTRY METHOD 11/18/2024 11:26 AM [facility] Comment:Calculation based on the Chronic Kidney Disease Epidemiology Collaboration (CKD-EPI) equation refit without adjustment for race. BUN/Creatinine Ratio 17.1 LAB CHEMISTRY METHOD 11/18/2024 11:26 AM [facility] Calcium 9.0 8.5 - 10.5 mg/dL LAB CHEMISTRY METHOD 11/18/2024 11:26 AM [facility] AST (SGOT) 18 10 - 42 unit/L LAB CHEMISTRY METHOD 11/18/2024 11:26 AM [facility] ALT (SGPT) 21 10 - 60 unit/L LAB CHEMISTRY METHOD 11/18/2024 11:26 AM [facility] Alkaline Phosphatase 73 42 - 121 unit/L LAB CHEMISTRY METHOD 11/18/2024 11:26 AM EDT [facility] Total Protein 7.0 6.0 - 8.0 g/dL LAB CHEMISTRY METHOD 11/18/2024 11:26 AM EDT [facility] Albumin 3.7 3.2 - 5.0 g/dL LAB CHEMISTRY METHOD 11/18/2024 11:26 AM EDT [facility] Total Bilirubin 0.7 0.0 - 1.4 mg/dL LAB CHEMISTRY METHOD 11/18/2024 11:26 AM EDT [facility] Blood Venous blood specimen / Unknown Venipuncture / Unknown 11/18/2024 8:36 AM EDT 11/18/2024 8:36 AM EDT Emeli BONNER LAB BLOOD ORDERABLES Final Resul t [facility] [address] [place] [address], [place] [phone] * XR Chest 2 Views (11/17/2024 10:48 [...] Signed Date: 11/17/2024 11:41 ET Workstation ID: [id number] Transcribed By: Self Edit Transcribed Date: 11/17/2024 [...] Date: 11/17/2024 11:39 ET Assigned Physician: Linda Aknis Reviewed and Electronically Signed By: Linda Akins Signed Date: 11/17/2024 11:41 ET Workstation ID: [id number] Transcribed By: Self Edit Transcribed Date: 11/17/2024 11:39 ET us Emeli BONNER IMG XR PROCEDURES Final Result * [...] S' 10 cm/s CV PACS RA Major Sarver 4.4 cm CV PACS RA Major Sarver Index 2.8 2.2 - 2.8 cm/m2 CV [...] NP CV ECHO PROCEDURES Final Result * ID ARTHROCENTESIS/ASPIRATION/INJECTION MAJOR JOINT/BURSA W/O U/S GUIDANCE (09/16/2024 [...] with patient: Verbal Pre-procedure timeout performed: yes Result [facility] Jaime BONNER IN CLINIC/BEDSIDE ORDERABLES Fin al Result * Urine Albumin Creatinine Ratio (01/07/2024) [facility] Urine Albumin Creatinine Ratio Abstracted Result [facility] HEALTH MAINTENANCE Final Result * Diabetes Foot Exam (01/01/2024) [facility] Diabetes: Annual Foot Exam Abstracted Result [facility] HEALTH MAINTENANCE Final Result * Falls Risk Assessment (07/17/2023) [facility] Falls Risk Assessment Abstracted Result [facility] HEALTH MAINTENANCE Final Result * Depression Screening (02/12/2023) [facility] Depression Screening Abstracted Result [facility] HEALTH MAINTENANCE Final Result * Hepatitis C Screening (05/18/2020) [facility] Hepatitis C Screening Abstracted Result [facility] HEALTH MAINTENANCE Final Result from Last 3 Months or Most Recently Relevant to Health Maintenance Insurance [facility] MEDICARE Member Subscriber Plan / Payer (Ef fective 2020-Present) Name:JENNIFER CASILLAS Relation to Subscriber:Self Name:Jennifer Casillas Payer ID:[id number] Group ID:[id number] Type:Not on file Address: [place] [address] [place] [address] Care Teams Biophysics Professor Relationship Specialty Start Date End Date Tegan Driscoll MD [address] [place] [phone] PCP - General Internal Medicine 11/01/21
[2024-12-05 13:51] LABS: Anion Gap 15 (12-20); Blood Urea Nitrogen 59 mg/dL (9-16); Carbon Dioxide 25 mmol/L (22-29); Chloride 104 mmol/L (96-108); Estimated Glomerular Filt Rate 13; Potassium 3.8 mmol/L (3.3-5.1); Sodium 140 mmol/L (135-145)
== END 2024-12-05 08:50 | disposition home or self-care (01) ==
LOC: HO.HKASLDS 08:49
PROVIDERS: Visit Provider Internal Medicine Nephrology
DX: E87.6 Hypokalemia (principal); E11.21 Type 2 diabetes mellitus with diabetic nephropathy; E11.22 Type 2 diabetes mellitus with diabetic chronic kidney disease; I12.9 Hypertensive chronic kidney disease with stage 1 through stage 4 chronic kidney disease, or unspecified chronic kidney disease; N18.32 Chronic kidney disease, stage 3b
CPT/HCPCS: 36415; 80051; 82565; 84520

== ENCOUNTER 2025-01-13 12:22 | Outpatient (REF) | payer OTHER, SELFPAY ==
--- OUTSIDE RECORDS SUMMARY | 2025-01-13 17:21 | XMS_ITS | Clinical Summary ---
Author Organization [facility] [address] [facility] Address [address] [place] [address] Phone Care Team Providers Care Orthopedic Shoe Maker Name Role Phone Tegan Driscoll MD Primary [...] DAILY 90 tablet 3 10/03/19 25 Active omeprazole (PriLOSEC) 20 mg [...] meals. 45 mL 1 11/18/19 25 Active Vitamins B Complex tablet TAKE 1 TABLET BY MOUTH DAILY 90 tablet 12/31/19 25 Active Vitamins B Complex tablet TAKE 1 TABLET BY MOUTH DAILY 90 tablet 10/03/19 25 025 Discontinued Active Problems Problem Noted Date Diagnosed Date Diabetes mellitus ([facility] V24, [facility] V28) 08/2024 Abnormal EKG 10/10/2022 Overview (01/09/2024): Last Assessment & Plan: Has been chronic. Both stress test and echocardiogram were unremarkable. She has felt well without symptoms to suggest angina or heart failure. We will continue primary prevention. Osteoarthritis of spine with radiculopathy, lumb ar region 06/02/2022 Hyperparathyroidism due to r enal insufficiency ([facility] V24) 05/03/2021 Vitamin D deficiency 05/03/2021 Murmur, [...] type 2 wit h peripheral artery disease ([facility] V24, [facility] V28) 08/06/2018 Overview (01/09/2024): [facility] - see testing 07/31/18 - stenoses in both lower extremity arteries; 12/2019 multilevel stenoses Peripheral artery disease ([facility] V24) 08/07/19 Overview (01/09/2024): [facility] Last Assessment & Plan: Overall, [...] ROSEANNA (obstructive sleep apnea) 02/11/2016 Overview (01/09/2024): [facility] ([facility]). 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) ([facility] V24, [facility] V28) 07/21/2015 Cerebrovascular accident (CV A) involving right middle cerebral artery territory ([facility] V24, [facility] V28) 07/20/2015 Tear, knee, medial meniscus 11/10/2014 Papilledema 02/06/2014 Chest pain 09/29/2013 Overview (01/09/2024): Negative Regadenoson stress test [facility] 08/2013 Last Assessment & Plan: [...] 2 diabetes mellitus wit h renal manifestations ([facility] V24, [facility] V28) 01/27/2013 Overview (01/09/2024): Last Assessment & Plan: Better control of diabetes. Continue current regimen. See diabetes male infertility specialist/educator as planned. Return in 3 months with lab tests at least 1 week before next visit. 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 ([facility] V24, [facility] V28) 12/26/2012 Constipation 05/13/2012 Gout 12/01/2011 Overview (01/09/2024): Hyperuricemia, recurrent lower extremity attacks, cystic change in left 1st MTP Rheumatoid factor positive 12/01/2011 Overview (01/09/2024): No obvious synovitis as of 06/12 GERD (gastroesophageal reflux disease) 1 Osteopenia 01/17/2011 Overview (01/09/2024): LS T score -1.6 CKD (chronic kidney disease) , stage III ([facility] V24, [facility] V28) 11/19/2010 Microalbuminuria 11/19/2010 Low back pain [...] PM EDT Hospital Encounter Radiology Department - [address] [phone] Encounter for screening mammogram for breast cancer Discharge Disposition: Home or Self Care 11/18/2024 Telephone [facility] - [facility] [address] [place] [address] An Hess [place] 11/17/2024 10:30 AM EDT - 11/17/2024 11:59 PM EDT Hospital Encounter XRAY - [address] [phone] Subacute cough Discharge Disposition: Home or Self Care 11/17/2024 10:15 AM EDT Office Visit Adult Medicine [address] [phone] Emeli Archer PA Type 2 diabetes mellitus with diabetic microalbuminuria, with long-term current use of insulin ([facility] V24, [facility] V28) (Primary Dx); Microalbuminuria; Primary hypertension; Mixed hyperlipidemia; History of CVA (cerebrovascular accident); Subacute cough; Non-seasonal allergic rhinitis, unspecified trigger; Low serum potassium 10/31/2024 Telephone Adult Medicine [address] [phone] Tegan Morelos MD from Last 3 Months Immunizations Immunization Administration Dates Next Due Influenza Quadravalent, 0.5m [...] PROCEDURE: HISTORICAL TUBAL LIGATION KNEE ARTHROSCOPY PROCEDURE: IA ARTHROSCOPY KNEE DIAGNOSTIC W/WO SYNOVIAL BX SPX; COMMENT: right 12/09 CHOLECYSTECTOMY PROCEDURE: HISTORICAL CHOLECYSTECTOMY Medical History Medical History Date Comments DM type 2 (diabetes mellitus , type 2) ([facility] V24, [facility] V28) 11/05/2010 DX:DM type 2 (diabetes claire itus, type 2) ([facility]) Essential hypertension, benign 11/03/2010 D X:Essential hypertension, [...] wit h renal manifestations not at goal ([facility] V24, [facility] V28) 01/27/2013 DX:Type 2 diabetes mellitus with renal manifestations not at goal ([facility]) CKD (chronic kidney disease) , stage III ([facility] V24, [facility] V28) 11/19/2010 DX:CKD (chronic kidney disease), stage [...] pain; C OMMENT: Negative Regadenoson stress test [facility] 08/2013 Abnormal US (ultrasound) of [...] A) involving right middle cerebral artery territory ([facility] V24, [facility] V28) 07/20/2015 DX:Cerebrovascula r accident (CVA) involving right middle cerebral artery territory (HCC) Hemiparesis affecting left s mae as late effect of cerebrovascular accident (CVA) (CMS/HCC V24, CMS/HCC V28) 07/21/2015 DX:Hemiparesis affecting lef t side as late effect of cerebrovascular accident (CVA) (HCC) Sleep apnea in adult 02/11/2016 DX:Sleep ap clair in adult; COMMENT: [facility] ([facility]). Compliant with CPAP Abnormal echocardiogram 06/12/2018 [...] 9:45 AM EST Office Visit Adult Medicine [facility] [address] [place] [address] Tegan Driscoll MD [address] [place], [place] 08/13/2025 12:00 PM EDT Ancillary Procedure [facility] - [facility] [address] [facility] [address] [place] [phone] 09/14/2025 9:30 AM EDT Office Visit Vascular Surgery - [place] [address] [facility] [address] [place] [phone] Catina Claire PA [address] [place] [address] Health Maintenance Due Date Last Done Comments [...] microalbuminuria, with long-term current use of insulin ([facility] V24, [facility] V28) HEMOGLOBIN A1C Routine 11/18/2024 8:36 AM EDT Type 2 diabetes mellitus with diabetic microalbuminuria, with long-term current use of insulin ([facility] V24, [facility] V28) LIPID PANEL WITH REFLEX TO DIRECT LDL Routine 11/18/2024 8:36 AM EDT Mixed hyperlipidemia XR CHEST 2 VIEWS Routine 11/17/2024 10:4 8 AM EDT Subacute cough URINE ALBUMIN CREATININE RATIO Routine 01/07/2024 DIABETES [...] is recommended in 1 year. Mammo Location: [facility], [address] [place] [address], [address], . -------- FINAL REPORT -------- Dictated By: Yonny Keene Dictated Date: 11/24/2024 18:26 ET Assigned Physician: Yonny Keene Reviewed and Electronically Signed By: Yonny Keene Signed Date: 11/24/2024 18:32 ET Workstation ID: [id number] Transcribed By: Self Edit Transcribed Date: 11/24/2024 [...] is recommended in 1 year. Mammo Location: [facility], [address] [place] [address], [address], . -------- FINAL REPORT -------- Dictated By: Yonny Keene Dictated Date: 11/24/2024 18:26 ET Assigned Physician: Yonny Keene Reviewed and Electronically Signed By: Yonny Keene Signed Date: 11/24/2024 18:32 ET Workstation ID: [id number] Transcribed By: Self Edit Transcribed Date: 11/24/2024 18:26 ET us Tegan Driscoll MD IMG BI PROCEDURES Final Result * (ABNORMAL) Lipid panel with reflex to direct LDL (11/18/2024 8:36 AM EDT) Cholesterol 229(H) 0 - 200 mg/dL LAB CHEMISTRY METHOD 11/18/2024 11:26 AM [facility] Triglycerides 277(H) 0 - 150 mg/dL LAB CHEMISTRY METHOD 11/18/2024 11:26 AM [facility] HDL 59 >=40 mg/dL LAB CHEMISTRY METHOD 11/18/2024 11:26 AM [facility] LDL Calculated 115(H) 0 - 100 mg/dL LAB CHEMISTRY METHOD 11/18/2024 11:26 AM T [facility] Comment:Estimated LDL Calcul ated using equation: Total cholesterol - HDL cholesterol - (Triglycerides/5) VLDL Cholesterol Theodoer 55.4 mg/dL LAB CHEMISTRY METHOD 11/18/2024 11:26 AM [facility] Non HDL Chol. (LDL+VLDL) 170(H) <145 mg/dL LAB CHEMISTRY METHOD 11/18/2024 11:26 AM [facility] Chol/HDL Ratio 3.9 0.0 - 4.4 LAB CHEMISTRY METHOD 11/18/2024 11:26 AM [facility] Blood Venous blood specimen / Unknown Venipuncture / Unknown 11/18/2024 8:36 AM EDT 11/18/2024 8:36 AM EDT us Laurita Hernandez NP LAB BLOOD ORDERABLES Final Resu lt [facility] [address] [place] [address], * (ABNORMAL) CBC auto differential (11/18/2024 8:36 AM EDT) WBC 8.5 4.8 - 10.8 K/mcL LAB HEMETOLOGY METHOD 11/18/2024 11:14 AM EDT [facility] RBC 4.70 3.80 - 4.80 M/mcL LAB HEMETOLOGY METHOD 11/18/2024 11:14 AM EDT [facility] Hemoglobin 12.5 11.5 - 16.0 g/dL LAB HEMETOLOGY METHOD 11/18/2024 11:14 AM EDT [facility] Hematocrit 38.4 35.0 - 47.0 % LAB HEMETOLOGY METHOD 11/18/2024 11:14 AM EDT [facility] MCV 82.1 79.0 - 98.0 FL LAB HEMETOLOGY METHOD 11/18/2024 11:14 AM EDT [facility] MCH 26.7(L) 27.0 - 32.0 pcg LAB HEMETOLOGY METHOD [facility] MCHC 32.6 32.0 - 37.0 g/dL LAB HEMETOLOGY METHOD 11/18/2024 11:14 AM EDT [facility] RDW 13.2 11.0 - 15.0 % LAB HEMETOLOGY METHOD 11/18/2024 11:14 AM EDT [facility] Platelets 302 130 - 400 K/[facility] LAB HEMETOLOGY METHOD 11/18/2024 11:14 AM EDT [facility] MPV 10.4 7.0 - 11.0 FL LAB HEMETOLOGY METHOD 11/18/2024 11:14 AM [facility] NRBC 0.0 <1.0 % LAB HEMETOLOGY METHOD 11/18/2024 11:14 AM [facility] NRBC Absolute 0.00 <0.10 K/mcL LAB HEMETOLOGY METHOD 11/18/2024 11:14 AM [facility] Neutrophils Relative 68.4 % LAB HEMETOLOGY METHOD 11/18/2024 11:14 AM [facility] Lymphocytes Relative 20.3 % LAB HEMETOLOGY METHOD 11/18/2024 11:14 AM [facility] Monocytes Relative 4.8 % LAB HEMETOLOGY METHOD 11/18/2024 11:14 AM [facility] Eosinophils Relative 5.6 % LAB HEMETOLOGY METHOD 11/18/2024 11:14 AM [facility] Basophils Relative 0.5 % LAB HEMETOLOGY METHOD 11/18/2024 11:14 AM [facility] Immature Granulocytes Relative 0.4 % LAB HEMETOLOGY METHOD 11/18/2024 11:14 AM [facility] Neutrophils Absolute 5.84 1.50 - 7.00 K/mcL LAB HEMETOLOGY METHOD 11/18/2024 11:14 AM [facility] Lymphocytes Absolute 1.73 1.00 - 5.00 K/mcL LAB HEMETOLOGY METHOD 11/18/2024 11:14 AM [facility] Monocytes Absolute 0.41 0.20 - 1.00 K/mcL LAB HEMETOLOGY METHOD 11/18/2024 11:14 AM [facility] Eosinophils Absolute 0.48 0.00 - 0.50 K/mcL LAB HEMETOLOGY METHOD 11/18/2024 11:14 AM [facility] Basophils Absolute 0.04 0.00 - 0.20 K/mcL LAB HEMETOLOGY METHOD 11/18/2024 11:14 AM EDT [facility] Immature Granulocytes Absolute 0.03 0.00 - 0.03 K/mcL LAB HEMETOLOGY METHOD 11/18/2024 11:14 AM EDT [facility] Blood Venous blood specimen / Unknown Venipuncture / Unknown 11/18/2024 8:36 AM EDT 11/18/2024 8:36 AM EDT Isaura Khoury MD LAB BLOOD ORDERABLES Fi nal Result Performing Organization Address [facility]/ZIP Co de Phone Number [facility] [address] [place] [address], [place] [phone] * (ABNORMAL) Hemoglobin A1c (11/18/2024 8:36 AM EDT) Hemoglobin A1C 7.6(H) <6.5 % LAB CHEMISTRY METHOD 11/18/2024 12:28 PM EDT [facility] Mean Bld Glu Estim. 171 mg/dL LAB CHEMISTRY METHOD 11/18/2024 12:28 PM EDT [facility] Blood Venous blood specimen / Unknown Venipuncture / Unknown 11/18/2024 8:36 AM EDT 11/18/2024 8:36 AM EDT Emeli BONNER LAB BLOOD ORDERABLES Final Resul t [facility] [address] [place] [address], [place] [phone] * (ABNORMAL) Comprehensive metabolic panel (11/18/2024 8:36 AM EDT) Sodium 140 133 - 145 mmol/L LAB CHEMISTRY METHOD 11/18/2024 11:26 AM EDT [facility] Potassium 3.2(L) 3.5 - 5.5 mmol/L LAB CHEMISTRY METHOD 11/18/2024 11:26 AM [facility] Chloride 104 96 - 110 mmol/L LAB CHEMISTRY METHOD 11/18/2024 11:26 AM [facility] CO2 31 21 - 32 mmol/L LAB CHEMISTRY METHOD 11/18/2024 11:26 AM [facility] Anion Gap 5 3 - 11 LAB CHEMISTRY METHOD 11/18/2024 11:26 AM [facility] Glucose 130(H) 70 - 100 mg/dL LAB CHEMISTRY METHOD 11/18/2024 11:26 AM [facility] BUN 39(H) 5 - 25 mg/dL LAB CHEMISTRY METHOD 11/18/2024 11:26 AM [facility] Creatinine 2.28(H) 0.50 - 1.10 mg/dL LAB CHEMISTRY METHOD 11/18/2024 11:26 AM [facility] eGFR 21(L) >=60 mL/min/1. 73m2 LAB CHEMISTRY METHOD 11/18/2024 11:26 AM [facility] Comment:Calculation based on the Chronic Kidney Disease Epidemiology Collaboration (CKD-EPI) equation refit without adjustment for race. BUN/Creatinine Ratio 17.1 LAB CHEMISTRY METHOD 11/18/2024 11:26 AM [facility] Calcium 9.0 8.5 - 10.5 mg/dL LAB CHEMISTRY METHOD 11/18/2024 11:26 AM [facility] AST (SGOT) 18 10 - 42 unit/L LAB CHEMISTRY METHOD 11/18/2024 11:26 AM [facility] ALT (SGPT) 21 10 - 60 unit/L LAB CHEMISTRY METHOD 11/18/2024 11:26 AM [facility] Alkaline Phosphatase 73 42 - 121 unit/L LAB CHEMISTRY METHOD 11/18/2024 11:26 AM [facility] Total Protein 7.0 6.0 - 8.0 g/dL LAB CHEMISTRY METHOD 11/18/2024 11:26 AM EDT [facility] Albumin 3.7 3.2 - 5.0 g/dL LAB CHEMISTRY METHOD 11/18/2024 11:26 AM EDT [facility] Total Bilirubin 0.7 0.0 - 1.4 mg/dL LAB CHEMISTRY METHOD 11/18/2024 11:26 AM EDT [facility] Blood Venous blood specimen / Unknown Venipuncture / Unknown 11/18/2024 8:36 AM EDT 11/18/2024 8:36 AM EDT Emeli BONNER LAB BLOOD ORDERABLES Final Resul t [facility] [address] [place] [address], [place] [phone] * XR Chest 2 Views (11/17/2024 10:48 [...] Signed Date: 11/17/2024 11:41 ET Workstation ID: [id number] Transcribed By: Self Edit Transcribed Date: 11/17/2024 [...] Signed Date: 11/17/2024 11:41 ET Workstation ID: [id number] Transcribed By: Self Edit Transcribed Date: 11/17/2024 11:39 ET Result [facility] Emeli BONNER IMG XR PROCEDURES Final Result * Urine Albumin Creatinine Ratio (01/07/2024) [facility] Urine Albumin Creatinine Ratio Abstracted Result [facility] Provider HEALTH MAINTENANCE Final Result * Diabetes Foot Exam (01/01/2024) [facility] Diabetes: Annual Foot Exam Abstracted Result [facility] Provider HEALTH MAINTENANCE Final Result * Falls Risk Assessment (07/17/2023) [facility] Falls Risk Assessment Abstracted Result [facility] Provider HEALTH MAINTENANCE Final Result * Depression Screening (02/12/2023) [facility] Depression Screening Abstracted Result [facility] Provider HEALTH MAINTENANCE Final Result * Hepatitis C Screening (05/18/2020) [facility] Hepatitis C Screening Abstracted Result [facility] Provider HEALTH MAINTENANCE Final Result from Last 3 Months or Most Recently Relevant to Health Maintenance Insurance [employer] Member Subscriber Plan / Payer (Ef fective 2020-Present) Name:JENNIFER CASILLAS Relation to Subscriber:Self Name:Jennifer Casillas Payer ID:[id number] Group ID:[id number] Type:Not on file Address: [place] [address] [place] [address] Care Teams Orthopedic Shoe Maker Relationship Specialty Start Date End Date Tegan Driscoll MD [address] [place] [phone] PCP - General Internal Medicine 11/01/21
--- OUTSIDE RECORDS SUMMARY | 2025-01-13 17:21 | XMS_ITS | Encounter Summary ---
Author Organization [facility] Address [address] [place] [address] Encounters * CPT with Medical [facility] at [facility] on 2024-12-09 { reasonForRequest : Pt's daughter reporting runny nose>coughing>not feeling well>body aches>chills>DENIES headache , patientReports : Sputum increase ; Cough , denies":[ Increased work of breathing/labored with or without fever , Unable to speak in full sentences without distress , Discoloration of skin -cyanosis , Needs to sleep sitting up, can t catch breath , Shortness of breath in setting of confusion", Cough, fever greater than 2 days , Lower extremity swelling , History of asthma, increased use of inhaler , COPD , COVID Exposure , Shortness of breath with exertion , Pain with inspiration ], chiefComplaints : Common Cold , pmh : Diabetes Mellitus Type 2, Hypertension, Rheumatoid Arthritis, Osteoporosis, Cancer , allergies : Penicillins, Iodinated Contrast Media , otherAllergies :null, painAssessment : , visitOutcome :&q uot; , additionalComments : 79 y.o female complains of Common Cold\n\nDaughter r eporting symptoms:\nStarted last night - throat pain, coughing, fever and chills, body aches\nProductive cough - white sputum \nVoiding appropriately - no malodor \nPoor PO intake - nausea during coughing fits but no vomiting \nBlood sugars have been WNL\nNo known recent sick contact\nRequesting instED visit \n\nOutreach to patient's daughter to inform her that we would need to reschedule the visit to tomorrow AM due to end of operational hours and medic capacity. Daughter believes patient is safe and able to wait until the AM. Will need a assembler and tester electronics for visit in AM as daughter will be at work.\n\nI provided information on the mobile health provider response time and advised the patient and/or caregiver to monitor reported signs and symptoms. I discussed the warning signs of whento seek emergency care. } Sent to a call for a pt complaining of URI symptoms. [facility] arrives on scene, pt is alert and oriented, airway is patent. Pt complains of headache, productive cough with white mucus, and sore throat x 2days. Pt denies dizziness, cp, sob, n/v/d, abd pain, fever, or loc. Pt's family states other peoplein house have been sick with similar symptoms. Pt has been taking Tylenol sparingly. Pt advised to take Tylenol 1gm TID. BP:160/65, P:76, RR:18, SpO2:95% RA, T:100.5; Head: unremarkable; Lung sounds:clear bilaterally; Abdomen: soft, non-tender, no distention; Back: unremarkable; Extremities: unremarkable; Skin: pink, warm, dry; Rapid covid/flu test: neg; Rapid strep test: neg; [facility] consulted and has no orders. Pt is advised to stay hydrated, continue symptomatic treatment. Red flags discussed. Pt has no further questions. IV_(FLUIDS_AND/OR_MEDICATION), MEDICATION_IM, POC_BLOODWORK Written by Medical [facility] on 2024-12-09
--- OUTSIDE RECORDS SUMMARY | 2025-01-13 17:21 | XMS_ITS | Clinical Summary ---
Author Organization [facility] Address [address] [place] [address] Care Team Providers Care Precision Instrument And Tool Maker Name Role Phone Tegan Johnson MD Primary [...] age to complete this topic Care Teams Precision Instrument And Tool Maker Relationship Specialty Start Date End Date Tegan Johnson MD [address] [place] [address] PCP - General Internal Medicine 07/31/23
--- OUTSIDE RECORDS SUMMARY | 2025-01-13 17:21 | XMS_ITS | Clinical Summary ---
Author Organization [facility] Address [address] [facility] [address] [place] [address] Phone Care Team Providers Care Piano Regulator Name Role Phone Marissa Bray CNP Primary Care Provider [phone] Allergies Active Allergy Reactions Criticality Noted Date [...] a day 1 Active Deep Sea Nasal [place] 0.65 % nasal spray Administer 1 spray [...] Peripheral vascular disease 08/06/2018 08/20/2020 Overview (05/24/2020): [facility] Abnormal echocardiogram 06/12/201808/01 Obstructive sleep apnea syndrome 02/11/2016 08/20/2020 Overview (05/24/2020): [facility] ([facility]). 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 Continue current regimen. See diabetes taco maker/educator as planned. Return in 3 months with lab tests at least 1 week before next visit. [facility] - see testing 07/31/18 [...] complete this topic Insurance ([id number]) [place] [id number] ([id number]) Care Teams Piano Regulator Relationship Specialty Start Date End Date Marissa Bray CNP PCP - General Nurse Practitioner 04/18/22
--- OUTSIDE RECORDS SUMMARY | 2025-01-13 17:21 | XMS_ITS | Continuity of Care Document ---
Author Name [facility], Medical Address [address] [place] [id number] Organization Unknown Address [address] [place] [address] Medications No known medications Problems No known problems
[2025-01-13 18:30] LABS: Anion Gap 14 (12-20); Blood Urea Nitrogen 48 mg/dL (9-16); Carbon Dioxide 26 mmol/L (22-29); Chloride 105 mmol/L (96-108); Estimated Glomerular Filt Rate 25; Potassium 3.4 mmol/L (3.3-5.1); Sodium 142 mmol/L (135-145)
== END 2025-01-13 12:23 | disposition home or self-care (01) ==
LOC: HO.HKASLDS 12:22
PROVIDERS: PCP Internal Medicine; Visit Provider Internal Medicine Nephrology
DX: I12.9 Hypertensive chronic kidney disease with stage 1 through stage 4 chronic kidney disease, or unspecified chronic kidney disease (principal); N18.32 Chronic kidney disease, stage 3b; N17.9 Acute kidney failure, unspecified
CPT/HCPCS: 36415; 80051; 82565; 84520; 99212

== ENCOUNTER 2025-01-13 12:22 | Outpatient (AMB) | payer OTHER, SELFPAY ==
--- NOTE | 2025-01-13 12:22 | HO.NEPHOV_ITS ---
Vital Signs 01/13/25 12:26 Height 5 ft 1 in Weight 125 lb 6 oz BMI 23.7 BP 130/60 Blood Pressure Location Rt brachial Position Sitting Pulse 78 Pulse Source Pulse Oximeter Pulse Oximetry (%) 98 Oxygen Delivery Method Room Air Intake Visit Reasons: 2mnth w labs Replanter Required: Yes Replanter Language: [employer] Technician Services: Replanter Offered & Declined ([facility] paraprofessional interpreter services refused ) Accompanied by: Daughter Allergies Penicillins Allergy (Verified 01/13/25 12:25) Unknown HPI Comments Details: Deonna was accompanied by her daughter in follow-up for chronic kidney disease and hypertension.She had CVA in the past without residual left side weakness. She denies any headache, visual disturbances, new weakness, chest pain, shortness of breath, proximal nocturnal dyspnea, orthopnea, pedal edema or urinary symptoms. She denies taking nonsteroidal anti-inflammatory medications. Her blood sugar control has been good. She still is on Plavix. She maintains good hydration. Her recent serum creatinine has gone up when she had the flu like illnes and her Jardiance has been put on hold. [facility] Medical History Hyperlipidemia Renal cell cancer Stroke Chronic kidney disease Essential (primary) hypertension Surgical History History of cholecystectomy History of nephrectomy History of kidney surgery History of knee surgery History of cataract surgery Family History Daughter Hypertension Son Hypertension Social History Alcohol intake: never Patient Tobacco Use Status: Never used Tobacco Review of Systems Const All systems reviewed & are unremarkable except as noted in HPI and below Physical Exam Const General: comfortable and no acute distress Orientation/consciousness: patient oriented x3 HEENT Head: Yes normocephalic Mouth: Normal oral and palatal mucosa present Eyes EOM: EOMs intact bilaterally Neck Neck: Yes supple Resp Auscultation: clear to auscultation bilaterally Cardio Jugular venous distension: no JVD Rate: regular rate GI Palpation (GI): Soft to palpation Auscultation: normal bowel sounds General: Yes no CVA tenderness Back/Spine/Pelvis Back: no CVA tenderness Skin General skin exam: no rashes or lesions noted Neuro General: patient oriented x3 and moves all extremities Extrem General: Yes no pedal edema Results Reviewed Nephrology Results: Hgb, (12.0-16.0) 12.6 g/dl 05/07/24 WBC, (4.8-10.8) 7.7 X10*3/uL 05/07/24 Plt Count, (160-400) 308 X10*3/uL 05/07/24 Sodium, (135-145) 140 mmol/L 12/05/24 Potassium, (3.3-5.1) 3.8 mmol/L Δ 12/05/24 Chloride, (96-108) 104 mmol/L 12/05/24 Carbon Dioxide, (22-29) 25 mmol/L 12/05/24 BUN, (9-16) 59 mg/dL H 12/05/24 Creatinine, (0.5-1.4) 3.30 mg/dL H 12/05/24 Calcium, (8.4-10.2) 9.1 mg/dL Δ 11/17/24 Assessment & Plan Assessment & Plan (1) ALFONZO (acute kidney injury): Code(s): N17.9 - Acute kidney failure, unspecified Category: Medical (2) CKD (chronic kidney disease) stage 3, GFR 30-59 ml/min: Code(s): N18.30 - Chronic kidney disease, stage 3 unspecified Category: Medical Qualifiers: Chronic kidney disease stage 3 subtype: stage 3b (GFR 30-44) Qualified Code(s): N18.32 - Chronic kidney disease, stage 3b (3) Hypertension: Code(s): I10 - Essential (primary) hypertension Category: Medical Qualifiers: Hypertension type: primary hypertension Qualified Code(s): I10 - Essential (primary) hypertension Plan Deonna has longstanding chronic kidney disease and hypertension. She has history of CVA with residual hemiparesis. Her blood pressure control is optimal. Her blood sugars are better. She does not have any orthostatic symptoms. She is on Jardiance 10 mg daily which is on hold today given rise in serum creatinine. She should maintain good hydration, increase activity, keep a low-sodium diet and avoid nonsteroidal anti-inflammatory medications. No PERSONNEL COUNSELOR issues now except for her residual weakness from her CVA. Follow up blood work ordered Orders: Orders Blood Urea Nitrogen 4 Weeks I10 - Essential (primary) hypertension, N17.9 - Acute kidney failure, unspecified, N18.32 - Chronic kidney disease, stage 3b Creatinine 4 Weeks I10 - Essential (primary) hypertension, N17.9 - Acute kidney failure, unspecified, N18.32 - Chronic kidney disease, stage 3b Electrolytes Today I10 - Essential (primary) hypertension, N17.9 - Acute kidney failure, unspecified, N18.32 - Chronic kidney disease, stage 3b Calcium 4 Weeks I10 - Essential (primary) hypertension, N17.9 - Acute kidney failure, unspecified, N18.32 - Chronic kidney disease, stage 3b Electrolytes 4 Weeks I10 - Essential (primary) hypertension, N17.9 - Acute kidney failure, unspecified, N18.32 - Chronic kidney disease, stage 3b Blood Urea Nitrogen Today I10 - Essential (primary) hypertension, N17.9 - Acute kidney failure, unspecified, N18.32 - Chronic kidney disease, stage 3b Creatinine Today I10 - Essential (primary) hypertension, N17.9 - Acute kidney failure, unspecified, N18.32 - Chronic kidney disease, stage 3b Coding Level of Care Code Est Pt Level 4 (78359) Diagnoses ALFONZO (acute kidney injury) N17.9 Stage 3b chronic kidney disease N18.32 Chronic kidney disease stage 3 subtype: stage 3b (GFR 30-44) Primary hypertension I10 Hypertension type: primary hypertension
[2025-01-13 12:26] VITALS: BP 130/60; PULSE 78; O2SAT 98; BMI 23.7
== END 2025-01-13 12:41 | disposition home or self-care (01) ==
LOC: HO.HKAS 12:23
PROVIDERS: PCP Internal Medicine; Visit Provider Internal Medicine Nephrology
DX: N17.9 Acute kidney failure, unspecified (principal); N18.32 Chronic kidney disease, stage 3b; I10 Essential (primary) hypertension
CPT/HCPCS: 99214